=== PATIENT | female | born 1930 | race Caucasian/White ===

== ENCOUNTER → 2016-09-01 | Outpatient (CLI) | payer MEDICARE, OTHER ==
[2016-01-20 11:00] VITALS: BP 154/62
[~2016-09-01] MED LIST: ASPI-482 PO; ASPI81TA2 PO; ATOR40TA PO; CALC1TAB75 PO; FOLI400T4 PO; GLUC1CAP41 PO; LISI-334 PO; MULT-658 PO; PARO20TA55 PO; TRAM50TA PO
--- NOTE | 2016-09-01 15:05 | RAD ---
CT of the chest without contrast, 09/01/2016: History: Lung cancer Noncontrast scans were performed as requested. Comparison is made to a study from 05/26/2016. There is an irregular parenchymal lesion in the posterior aspect of the right lung base abutting the pleura. This apparently represents a treated lung malignancy. There are solid and lower density fluid type components with mild fissural extension. A portion of this process, primarily the lower density component extending into the fissure, has increased slightly in size. There are scattered subpleural blebs and parenchymal scars. No new pulmonary mass or infiltrate is seen. No free pleural fluid is evident. There is moderate calcific plaquing of the thoracic aorta. Scattered coronary artery calcifications are present. Several small mediastinal lymph nodes are seen without pathologic enlargement. A severe lower thoracic vertebral compression fracture is unchanged. There are moderate scattered spurs in the spine. IMPRESSION: 1. Portions of the right lateral basilar pleural/parenchymal opacity have increased slightly in size since 05/26/2016 as described above. 2. No other significant interval change. PQRS Compliance Statement: One or more of the following individualized dose reduction techniques were utilized for this examination: 1. Automated exposure control 2. Adjustment of the mA and/or kV according to patient size 3. Use of iterative reconstruction technique
== END | disposition home or self-care (01) ==
LOC: CT 11:26
PROVIDERS: ATTEND Radiology Radiation Oncology
DX: C34.90 Malignant neoplasm of unspecified part of unspecified bronchus or lung (principal); I25.10 Atherosclerotic heart disease of native coronary artery without angina pectoris; T14.8 Other injury of unspecified body region
CPT/HCPCS: 71250

== ENCOUNTER → 2016-12-03 | Outpatient (CLI) | payer MEDICARE ==
[2016-01-20 11:00] VITALS: BP 154/62
--- NOTE | 2016-12-03 11:55 | RAD ---
CT of the chest without contrast, 12/03/2016: History: Follow-up lung cancer Noncontrast scans were obtained as requested. Comparison is made to a study from 09/01/2016. There is a persistent irregular parenchymal opacity in the posterolateral aspect of the right lung base abutting the pleura. It demonstrates cystic and solid components. It has shown further interval increase in size. Precise measurements are difficult due to its irregular margins, however, this process measures approximately 5.5 cm in greatest AP diameter and 3.4 cm in width on the axial images. Branching components of this process are definitely thicker. This apparently represents a treated lung malignancy. No significant free pleural fluid is evident. There are scattered subpleural blebs and parenchymal scars. No new pulmonary mass or infiltrate is seen. There is extensive calcific plaquing of the thoracic aorta and its branches. Scattered coronary artery calcifications are noted. The heart is not enlarged. No mediastinal adenopathy is seen. There is an old lower thoracic vertebral compression deformity. Moderate scattered spurs are present in the spine. IMPRESSION: The right basilar pleural/parenchymal opacity has shown further slight interval increase in size since 09/01/2016. PQRS Compliance Statement: One or more of the following individualized dose reduction techniques were utilized for this examination: 1. Automated exposure control 2. Adjustment of the mA and/or kV according to patient size 3. Use of iterative reconstruction technique
== END | disposition home or self-care (01) ==
LOC: CT 13:45
PROVIDERS: ATTEND Radiology Radiation Oncology
DX: Z85.118 Personal history of other malignant neoplasm of bronchus and lung (principal)
CPT/HCPCS: 71250

== ENCOUNTER → 2017-03-09 | Outpatient (CLI) | payer MEDICARE ==
[2016-01-20 11:00] VITALS: BP 154/62
[~2017-03-09] MED LIST changes: +ASPI-630 PO; -ASPI81TA2 PO; -PARO20TA55 PO; +PARO20TA99 PO
--- NOTE | 2017-03-09 16:24 | RAD ---
CT of the chest without contrast, 03/09/2017: History: Restaging lung cancer Noncontrast scans were obtained with multiplanar reconstructions produced. Comparison is made to a study from 12/03/2016. A small amount of free fluid is now evident on the right extending into the posterior gutter. This fluid extends laterally to the level of an adjacent subpleural parenchymal mass. The soft tissue component appears to be of similar size when compared to the previous study. This apparently represents a treated lung malignancy. The pleural fluid component has thickened slightly. There are scattered parenchymal scars and subpleural blebs. No new parenchymal opacities are seen. There is no evidence of left-sided pleural fluid. There is considerable calcific plaquing of the thoracic aorta without evidence of aneurysm. Scattered coronary artery calcifications are present. Several small mediastinal lymph nodes are seen without evidence of pathologic enlargement. An old severe lower thoracic vertebral compression fracture is again noted. IMPRESSION: Persistent pleural/parenchymal process in the right lung base laterally with slight progression of the pleural fluid component. The peripheral soft tissue pulmonary component show no definite change since 12/03/2016. PQRS Compliance Statement: One or more of the following individualized dose reduction techniques were utilized for this examination: 1. Automated exposure control 2. Adjustment of the mA and/or kV according to patient size 3. Use of iterative reconstruction technique
== END | disposition home or self-care (01) ==
LOC: CT 10:21
PROVIDERS: ATTEND Radiology Radiation Oncology
DX: C34.90 Malignant neoplasm of unspecified part of unspecified bronchus or lung (principal)
CPT/HCPCS: 71250

== ENCOUNTER → 2017-06-08 | Outpatient (CLI) | payer MEDICARE ==
[2016-01-20 11:00] VITALS: BP 154/62
--- NOTE | 2017-06-08 10:18 | RAD ---
CT chest without contrast 06/08/2017 Indication: History of lung cancer. Comparison: CT chest 03/09/2017, 12/03/2016, 09/01/2016 at 12/10/2015 Technique: Multiple axial CT images of the chest were obtained without intravenous contrast. Coronal and sagittal reformats are provided. Findings: The left thyroid gland is mildly enlarged and heterogeneous, stable. There are no pathologically enlarged lymph nodes in the axilla, mediastinum or hilar regions. There is a 10 mm subcutaneous nodule in the right upper lateral chest wall, stable dating back to 12/03/2016. Heart size is within normal limits. There is no pericardial effusion. Thoracic aorta is normal in course and caliber with moderate atherosclerotic calcification. Minor coronary artery vascular calcifications are present. Tracheobronchial calcification is noted. There is a 2.9 x 1.7 cm mass in the right lower lobe with adjacent airspace consolidation suggestive of atelectasis. There is increasing atelectasis along the posterior margin which gives the mass a larger appearance. However, overall size of the subtly more hyperattenuating component of the mass is stable. Trace right pleural effusion versus pleural thickening. No pulmonary vascular congestion or pneumothorax. Left lung is clear. Visualized portions of the upper abdomen appear stable. Adrenal glands are normal in size. Vascular calcifications are identified in the renal bar[place] bilaterally. Right lateral seventh, eighth, and and ninth ribs demonstrate mild periosteal reaction with subtle lucency and step-off suggestive of healing fractures. Deformity appears slightly increased compared to the prior examination from 03/09/2017 and re-injury is a consideration. Stable appearance of vertebral plana involving T12. Impression: 1. Stable appearance of a right lower lobe mass measuring 2.9 x 1.7 cm with increasing adjacent airspace consolidation suggestive of postobstructive or inflammatory changes. No new or pathologically enlarged thoracic lymph nodes are identified. 2. There is periosteal reaction which is increased since the prior examination involving right lateral seventh, eighth and ninth ribs. Findings could represent re-injury and correlation with symptoms is recommended. PQRS Compliance Statement: One or more of the following individualized dose reduction techniques were utilized for this examination: 1. Automated exposure control 2. Adjustment of the mA and/or kV according to patient size 3. Use of iterative reconstruction technique
== END | disposition home or self-care (01) ==
LOC: CT 09:36
PROVIDERS: ATTEND Radiology Radiation Oncology
DX: C34.90 Malignant neoplasm of unspecified part of unspecified bronchus or lung (principal); I25.10 Atherosclerotic heart disease of native coronary artery without angina pectoris; R22.2 Localized swelling, mass and lump, trunk; Z85.118 Personal history of other malignant neoplasm of bronchus and lung
CPT/HCPCS: 71250

== ENCOUNTER → 2017-12-08 | Outpatient (CLI) | payer MEDICARE | END | disposition home or self-care (01) | LOC: CT 15:26 | DX: C34.91 Malignant neoplasm of unspecified part of right bronchus or lung (principal); M40.294 Other kyphosis, thoracic region; I25.10 Atherosclerotic heart disease of native coronary artery without angina pectoris; I70.0 Atherosclerosis of aorta | CPT/HCPCS: 71250 ==

== ENCOUNTER → 2018-06-09 | Outpatient (CLI) | payer MEDICARE ==
[2016-01-20 11:00] VITALS: BP 154/62
[~2018-06-09] MED LIST changes: +DENO60DI SQ; +VENTOLIN HFA18 GM INH
--- NOTE | 2018-06-09 17:37 | RAD ---
CT of the chest without contrast, 06/09/2018: HISTORY: Follow-up lung cancer after radiation Noncontrast scans were obtained and compared to a study from 12/08/2017. There is an irregular parenchymal mass in the lateral aspect of the right lower lobe with mild adjacent streaky pulmonary infiltrate. It is difficult to measure due to its shape and irregular margins, however, it measures at least 6 cm in AP dimension, 2.9 cm in craniocaudad extent and 3.1 cm in width. It appears to be of similar size when compared to the 12/08/2017 exam. The amount of right pleural fluid has increased. There is minimal linear atelectasis or scarring in the right upper and middle lobes. The left lung remains clear. No left-sided pleural fluid is evident. There is extensive calcific plaquing of the thoracic aorta and its branches several small mediastinal lymph nodes are seen without evidence of pathologic enlargement. No adrenal abnormality is detected. Moderate multilevel degenerative changes are present in the spine. There is an unchanged severe vertebral compression fracture at T12. IMPRESSION: 1. Stable right lower lobe pulmonary mass with mild adjacent pulmonary infiltrate. 2. Increasing small right pleural effusion. PQRS Compliance Statement: One or more of the following individualized dose reduction techniques were utilized for this examination: 1. Automated exposure control 2. Adjustment of the mA and/or kV according to patient size 3. Use of iterative reconstruction technique Electronically signed by: Branden Rosas MD (06/09/2018 5:33 PM) [facility]
== END | disposition home or self-care (01) ==
LOC: CT 10:03
PROVIDERS: ATTEND Radiology Radiation Oncology
DX: C34.91 Malignant neoplasm of unspecified part of right bronchus or lung (principal); R91.8 Other nonspecific abnormal finding of lung field; J90 Pleural effusion, not elsewhere classified; M48.54XD Collapsed vertebra, not elsewhere classified, thoracic region, subsequent encounter for fracture with routine healing; Z92.3 Personal history of irradiation
CPT/HCPCS: 71250

== ENCOUNTER → 2018-09-15 | Outpatient (CLI) | payer MEDICARE ==
[2016-01-20 11:00] VITALS: BP 154/62
--- NOTE | 2018-09-15 11:24 | RAD ---
PQRS Compliance Statement: One or more of the following individualized dose reduction techniques were utilized for this examination: 1. Automated exposure control 2. Adjustment of the mA and/or kV according to patient size 3. Use of iterative reconstruction technique CT CHEST WO CONTRAST Clinical Indication: F/U LUNG CA S/P TREATMENT R PLEURAL EFFUSION Comparison: CT chest without contrast June 09, 2018. TECHNIQUE: Helical CT imaging of the chest is performed without IV contrast. Findings: Severe atherosclerotic calcification of the thoracic aorta. Coronary artery disease. Cardiac size normal, no pericardial effusion. The pulmonary trunk is mildly dilated, unchanged. Stable mediastinal lymph nodes, no adenopathy. Moderate right pleural effusion, mildly larger than on prior study. The central airways are patent. The left lung remains clear. 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 Mass in the lateral right lower lobe is difficult to accurately measure but is on the order of 7 cm AP by 3.3 cm transverse by 3 cm craniocaudal. The AP measurement is different than on the prior study due to differences in slice acquisition. The mass is unchanged in size since the prior study. There are linear parenchymal opacities in the right middle lobe that may be sequela of therapy. Visualized upper abdomen unremarkable. Severe compression fracture of the T12 vertebral body is unchanged. Degree of retropulsion is unchanged. IMPRESSION: 1. Right lower lobe pulmonary mass is not significantly changed. 2. Moderate right pleural effusion, mildly larger. Electronically signed by: Ari Prater MD (09/15/2018 11:19 AM) [id number]
== END | disposition home or self-care (01) ==
LOC: CT 10:13
PROVIDERS: ATTEND Radiology Radiation Oncology
DX: C34.90 Malignant neoplasm of unspecified part of unspecified bronchus or lung (principal); J90 Pleural effusion, not elsewhere classified; R91.8 Other nonspecific abnormal finding of lung field; I70.0 Atherosclerosis of aorta; I25.10 Atherosclerotic heart disease of native coronary artery without angina pectoris
CPT/HCPCS: 71250

== ENCOUNTER → 2018-12-13 | Outpatient (CLI) | payer MEDICARE ==
[2016-01-20 11:00] VITALS: BP 154/62
--- NOTE | 2018-12-13 17:19 | RAD ---
CT of the chest without contrast, 12/13/2018: HISTORY: Follow-up lung cancer Noncontrast scans were obtained and compared to a study from 09/15/2018. There is a persistent soft tissue mass in the posterolateral aspect of the right lower lobe abutting the visceral pleura. There is mild adjacent infiltrate with air bronchograms. The mass is difficult to accurately measure, however, it does appear to have increased slightly in size since the previous study. It currently measures 3.5 cm in craniocaudad extent on the coronal images compared to 3.3 cm on the previous study. Its greatest width on the axial images is currently 3.9 cm compared to 3.6 cm on the previous study. There is a small associated right pleural effusion which appears to have decreased slightly in size. The left chest remains clear. No left-sided pleural fluid is evident. There is extensive calcific plaquing of the thoracic aorta. Scattered coronary artery calcifications are present. Small mediastinal lymph nodes appear unchanged. No definite mediastinal adenopathy is delineated. A severe T12 vertebral compression fracture appears unchanged. Again noted is mild retropulsion of the fracture vertebral body into the anterior aspect of the spinal canal at that level. There are several old rib fractures on the right. IMPRESSION: 1. The right lower lobe pulmonary mass appears to have increased slightly in size since 09/15/2018. 2. The small right pleural effusion has decreased slightly in volume. PQRS Compliance Statement: One or more of the following individualized dose reduction techniques were utilized for this examination: 1. Automated exposure control 2. Adjustment of the mA and/or kV according to patient size 3. Use of iterative reconstruction technique Electronically signed by: Branden Rosas MD (12/13/2018 4:17 PM) [facility]
== END | disposition home or self-care (01) ==
LOC: CT 10:04
PROVIDERS: ATTEND Radiology Radiation Oncology
DX: C34.31 Malignant neoplasm of lower lobe, right bronchus or lung (principal); J90 Pleural effusion, not elsewhere classified; R91.8 Other nonspecific abnormal finding of lung field; I70.0 Atherosclerosis of aorta; M84.48XD Pathological fracture, other site, subsequent encounter for fracture with routine healing; I25.10 Atherosclerotic heart disease of native coronary artery without angina pectoris
CPT/HCPCS: 71250

== ENCOUNTER 2019-03-26 16:21 | Inpatient (IN) | payer MEDICARE ==
[~2019-03-26] VITALS: Ht 167.6 cm; Wt 55.6 kg
[2019-03-26] MEDS ORDERED: ONDANSETRON PF 4 MG/2 ML VIAL. IV ONE (16:45)
[2019-03-26] MEDS ORDERED: FAMOTIDINE 20 MG/2 ML VIAL IVP ONE (16:45)
[2019-03-26] MEDS ORDERED: IV NORMAL SALINE 1000ML BAG 1,000 ML IV ONE ×2 (16:45→20:00)
[2019-03-26 17:24] LABS: BILIRUBIN,URINE NEGATIVE (NEG); CLARITY,URINE CLOUDY; COLOR,URINE YELLOW; NITRITE,URINE NEGATIVE (NEG); PH,URINE 7.5; PROTEIN,URINE NEGATIVE (NEG-TRACE); UROBILINOGEN,URINE 0.2 mg/dL (0.2 mg/dL)
[2019-03-26] MEDS: fentaNYL PF VIAL 100 MCG/2 ML VIAL IV PRN ×5 (17:29→20:00)
[2019-03-26 17:35] LABS: AMORPHOUS SEDIMENT,UR PRESENT /HPF; BACTERIA,URINE 0 /HPF (0-FEW); RBC,URINE OCC /HPF (0-2); SQUAMOUS EPITHELIAL CELL,UR FEW /LPF
[2019-03-26 18:10] LABS: BASO % 0 % (0-3); EOS % 0 % (0-3); HEMATOCRIT 41.7 % (36.0-47.0); HEMOGLOBIN 13.6 g/dL (12.0-15.5); LYMPH # 0.9 x10^3/uL (1.0-4.8); LYMPH % 7 % (24-48); MEAN CORPUSCULAR HEMOGLOBIN 27 pg (25-35); MEAN CORPUSCULAR HGB CONC 33 g/dL (31-37); MEAN CORPUSCULAR VOLUME 83 fL (79-100); MONO # 0.5 x10^3/uL (0.0-1.1); MONO % 4 % (0-9); NEUT # 11.9 x10^3/uL (1.8-7.7); NEUT % 89 % (31-73); PLATELET COUNT 346 x10^3/uL (140-400); RED BLOOD COUNT 5.02 x10^6/uL (3.50-5.40); RED CELL DISTRIBUTION WIDTH 14.7 % (11.5-14.5); WHITE BLOOD COUNT 13.3 x10^3/uL (4.0-11.0)
[2019-03-26 18:19] LABS: PROTHROMBIN TIME PATIENT 11.8 SEC (11.7-14.0)
[2019-03-26 18:44] LABS: % EOS 1 % (0-5); % LYMPHS 7 % (24-48); % MONOS 5 % (0-10); % SEGS 87 % (35-66); PLT ESTIMATE ADEQUATE (ADEQUATE)
[2019-03-26] MEDS ORDERED: PROCHLORPERAZINE 10 MG/2 ML VIAL. IV ONE (18:45)
[2019-03-26] MEDS ORDERED: METOCLOPRAMIDE HCL 10 MG/2 ML VIAL. IV ONE (18:45)
[2019-03-26 18:53] LABS: CREATININE 0.6 mg/dL (0.6-1.0); GFR 94.8; POTASSIUM 3.9 mmol/L (3.5-5.1)
[2019-03-26 18:59] LABS: ALBUMIN 3.7 g/dL (3.4-5.0); ALBUMIN/GLOBULIN RATIO 1.1 (1.0-1.7); MAGNESIUM 1.6 mg/dL (1.8-2.4); TOTAL BILIRUBIN 0.5 mg/dL (0.2-1.0); TOTAL PROTEIN 7.2 g/dL (6.4-8.2)
[2019-03-26 19:06] LABS: CREATINE KINASE 56 U/L (26-192)
[2019-03-26] MEDS ORDERED: CONTRAST GIVEN. MC PRN (19:15)
[2019-03-26] MEDS ORDERED: IOHEXOL 350 MG/ML 100 ML VIAL. IV ONE (19:15)
--- NOTE | 2019-03-26 19:58 | PHYS DOC ---
Past Medical History Past Medical History: Depression, High Cholesterol, Hypertension (ENZO RAMIREZ APRN) Past Surgical History: No Surgical History (ENZO RAMIREZ APRN) Alcohol Use: None Drug Use: None (ENZO RAMIREZ APRN) Adult General Chief Complaint Chief Complaint: ABDOMINAL PAIN HPI HPI Patient is a 88 year old female who presents to the ED today complaining of severe generalized abdominal pain worse on the epigastric region rated at 10 out of 10 that began today after having Lidia jj that she just got 10 from the store. Patient is also complaining of vomiting. Denies any diarrhea. She arrives in the ED violently vomiting. She is currently a poor historian due to the vomiting. (ENZO RAMIREZ APRN) Review of Systems Review of Systems Constitutional: Denies fever or chills [] Eyes: Denies change in visual acuity, redness, or eye pain [] HENT: Denies nasal congestion or sore throat [] Respiratory: Denies cough or shortness of breath [] Cardiovascular: No additional information not addressed in HPI [] GI: Reports abdominal pain, nausea, vomiting, denies bloody stools or diarrhea [] : Denies dysuria or hematuria [] Musculoskeletal: Denies back pain or joint pain [] Integument: Denies rash or skin lesions [] Neurologic: Denies headache, focal weakness or sensory changes [] All other systems were reviewed and found to be within normal limits, except as documented in this note. (ENZO RAMIREZ APRN) Current Medications Current Medications Current Medications Medications (Trade) Dose Ordered Sig/Erica Start Time Stop Time Status Last Admin Dose Admin Famotidine (Pepcid Vial) 20 mg 1X ONCE 03/26/19 16:45 03/26/19 16:49 DC 03/26/19 17:29 20 MG Fentanyl Citrate (Fentanyl 2ml Vial) 50 mcg PRN Q15MIN PRN 03/26/19 16:45 03/27/19 16:44 DC 03/26/19 18:39 50 MCG Info (CONTRAST GIVEN -- Rx MONITORING) 1 each PRN DAILY PRN 03/26/19 19:15 03/28/19 19:14 DC Iohexol (Omnipaque 350 Mg/ml) 75 ml 1X ONCE 03/26/19 19:15 03/26/19 19:16 DC 03/26/19 19:27 75 ML Lorazepam (Ativan Inj) 2 mg 1X ONCE 03/26/19 19:30 03/26/19 19:31 DC Metoclopramide HCl (Reglan Vial) 10 mg 1X ONCE 03/26/19 18:45 03/26/19 18:46 DC 03/26/19 18:18 10 MG Ondansetron HCl (Zofran) 4 mg 1X ONCE 03/26/19 16:45 03/26/19 16:49 DC 03/26/19 17:29 4 MG Prochlorperazine Edisylate (Compazine) 10 mg 1X ONCE 03/26/19 18:45 03/26/19 18:46 DC 03/26/19 18:12 10 MG Sodium Chloride 1,000 ml @ 1,000 mls/hr 1X ONCE 03/26/19 16:45 03/26/19 17:44 DC 03/26/19 17:30 1,000 MLS/HR (STACIA NOGUEIRA DO) Allergies Allergies Allergies Coded Allergies Type Severity Reaction Last Updated Verified No Known Drug Allergies 03/05/14 No (STACIA NOGUEIRA DO) Physical Exam Physical Exam Constitutional: Well developed, well nourished, no acute distress, non-toxic appearance. [] HENT: Normocephalic, atraumatic, bilateral external ears normal, oropharynx moist, no oral exudates, nose normal. [] Eyes: PERRLA, EOMI, conjunctiva normal, no discharge. [] Neck: Normal range of motion, no tenderness, supple, no stridor. [] Cardiovascular:Heart rate regular rhythm, no murmur [] Lungs & Thorax: Bilateral breath sounds clear to auscultation [] Abdomen: Patient is actively vomiting in the ED. Bowel sounds normal, soft, diffuse tenderness throughout the abdomen tenderness, no masses, no pulsatile masses. [] Skin: Warm, dry, no erythema, no rash. [] Back: No tenderness, no CVA tenderness. [] Extremities: No tenderness, no cyanosis, no clubbing, ROM intact, no edema. [] Neurologic: Alert and oriented X 3, normal motor function, normal sensory fun ction, no focal deficits noted. [] Psychologic: Restless, thrashing around in bed. (MIKCYUNGA,ENZO REGULATORY AFFAIRS ANALYST) Current Patient Data Vital Signs Vital Signs Date Time Temp Pulse Resp B/P (MAP) Pulse Ox O2 Delivery O2 Flow Rate FiO2 03/26/19 19:32 88 22 244/157 (186) 100 Nasal Cannula 2.0 03/26/19 16:32 98.0 98.0 (NOGUEIRASTACIA DO) Lab Values Laboratory Tests Test 03/26/19 17:16 03/26/19 18:00 03/26/19 18:35 Urine Collection Type Unknown Urine Color Yellow Urine Clarity Cloudy Urine pH 7.5 Urine Specific [place] 1.010 Urine Protein Negative mg/dL (NEG-TRACE) Urine Glucose (UA) Negative mg/dL (NEG) Urine Ketones (Stick) Trace mg/dL (NEG) Urine Blood Negative (NEG) Urine Nitrite Negative (NEG) Urine Bilirubin Negative (NEG) Urine Urobilinogen Dipstick 0.2 mg/dL (0.2 mg/dL) Urine Leukocyte Esterase Trace (NEG) Urine RBC Occ /HPF (0-2) Urine WBC 1-4 /HPF (0-4) Urine Squamous Epithelial Cells Few /LPF Urine Amorphous Sediment Present /HPF Urine Bacteria 0 /HPF (0-FEW) Urine Mucus Slight /LPF White Blood Count 13.3 x10^3/uL (4.0-11.0) H Red Blood Count 5.02 x10^6/uL (3.50-5.40) Hemoglobin 13.6 g/dL (12.0-15.5) Hematocrit 41.7 % (36.0-47.0) Mean Corpuscular Volume 83 fL (79-100) Mean Corpuscular Hemoglobin 27 pg (25-35) Mean Corpuscular Hemoglobin Concent 33 g/dL (31-37) Red Cell Distribution Width 14.7 % (11.5-14.5) H Platelet Count 346 x10^3/uL (140-400) Neutrophils (%) (Auto) 89 % (31-73) H Lymphocytes (%) (Auto) 7 % (24-48) L Monocytes (%) (Auto) 4 % (0-9) Eosinophils (%) (Auto) 0 % (0-3) Basophils (%) (Auto) 0 % (0-3) Neutrophils # (Auto) 11.9 x10^3/uL (1.8-7.7) H Lymphocytes # (Auto) 0.9 x10^3/uL (1.0-4.8) L Monocytes # (Auto) 0.5 x10^3/uL (0.0-1.1) Eosinophils # (Auto) 0.0 x10^3/uL (0.0-0.7) Basophils # (Auto) 0.0 x10^3/uL (0.0-0.2) Segmented Neutrophils % 87 % (35-66) H Lymphocytes % 7 % (24-48) L Monocytes % 5 % (0-10) Eosinophils % 1 % (0-5) Platelet Estimate Adequate (ADEQUATE) Prothrombin Time 11.8 SEC (11.7-14.0) Prothrombin Time INR 0.9 (0.8-1.1) Sodium Level 136 mmol/L (136-145) Potassium Level 3.9 mmol/L (3.5-5.1) Chloride Level 99 mmol/L (98-107) Carbon Dioxide Level 27 mmol/L (21-32) Anion Gap 10 (6-14) Blood Urea Nitrogen 7 mg/dL (7-20) Creatinine 0.6 mg/dL (0.6-1.0) Estimated GFR (Cockcroft-Gault) 94.8 BUN/Creatinine Ratio 12 (6-20) Glucose Level 149 mg/dL (70-99) H Calcium Level 9.0 mg/dL (8.5-10.1) Magnesium Level 1.6 mg/dL (1.8-2.4) L Total Bilirubin 0.5 mg/dL (0.2-1.0) Aspartate Amino Transferase (AST) 20 U/L (15-37) Alanine Aminotransferase (ALT) 19 U/L (14-59) Alkaline Phosphatase 120 U/L (46-116) H Creatine Kinase 56 U/L (26-192) Creatine Kinase MB (Mass) 1.5 ng/mL (0.0-3.6) Creatine Kinase MB Relative Index % (0-4) Troponin I Quantitative 0.023 ng/mL (0.000-0.055) LF-Iwh-R-Type Natriuretic Peptide 580 pg/mL (0-449) H Total Protein 7.2 g/dL (6.4-8.2) Albumin 3.7 g/dL (3.4-5.0) Albumin/Globulin Ratio 1.1 (1.0-1.7) Lipase 70 U/L (73-393) L Thyroid Stimulating Hormone (TSH) 0.870 uIU/mL (0.358-3.74) Laboratory Tests 03/26/19 18:00 Laboratory Tests 03/26/19 18:35 Microbiology 03/26/19 Urine Culture - Final, Complete 03/26/19 Urine Culture Result 1 (GUILLERMO) - Final, Complete (STACIA NOGUEIRA DO) EKG EKG Interpreted by Dr. Sheldon sinus rhythm HR 78 no STEMI (JAMESENZO REGULATORY AFFAIRS ANALYST) Radiology/Procedures Radiology/Procedures []PROCEDURE: CT ANGIO CHEST ABD PELVIS CTA of the chest, abdomen and pelvis without and with contrast 03/26/2019 CLINICAL HISTORY: History of lung cancer. Chest, abdominal and pelvic pain. Concern for aortic dissection. TECHNIQUE: Unenhanced, contiguous, 2 mm axial sections were obtained through the chest, abdomen and pelvis. After the intravenous administration of 75 cc of Omnipaque 350, contiguous, 0.625 mm axial sections were obtained through the chest, abdomen and pelvis. Multiplanar 3-D MIP reconstructed images were obtained. Volume rendered 3-D reconstructed images were obtained. One or more of the following individualized dose reduction techniques were utilized for this study: 1. Automated exposure control. 2. Adjustment of the mA and/or kV according to patient size. 3. Use of iterative reconstruction technique. FINDINGS: The unenhanced CT images demonstrate extensive atherosclerotic calcification of the thoracic and abdominal aorta and their branches. On the postcontrast images the thoracic aorta is tortuous but tapers normally. No intimal flap is seen to suggest evidence of an aortic dissection. No aneurysm is noted. The origins of the brachiocephalic, left common carotid and left subclavian arteries from the thoracic aortic arch are patent. The heart is mildly enlarged. There is a small to moderate-sized sliding hiatal hernia. A masslike area is seen involving the right lower lobe which is unchanged. There is a small right pleural effusion which is unchanged. No acute pulmonary infiltrate is noted. No pneumothorax is seen. Mild bullous emphysematous changes are seen involving both upper lobes. The liver parenchyma has a decreased attenuation consistent with mild fatty infiltration. The spleen, pancreas, adrenal glands and kidneys are within normal limits. The gallbladder is well-distended. A small amount of free fluid is seen surrounding the liver. Dilated air and fluid-filled small bowel loops are seen throughout the mid/lower abdomen. Wall thickening of a portion of the ileum is noted within the right lower quadrant abdomen. A transition point in the caliber of the bowel is seen within the mid ileum. These findings are consistent with a small bowel obstruction. Images through the pelvis demonstrate the urinary bladder distended with urine. Multiple diverticula are seen involving the sigmoid colon. There is a small amount of free fluid. No inflammatory changes are seen surrounding the sigmoid colon. Mild S-shaped curvature of the thoracolumbar spine is seen. Old compression fracture of the T11 vertebral body is noted. Degenerative changes are seen involving the thoracic and throughout the lumbar spine and both hips. CTA images of the abdominal aorta demonstrate atherosclerotic calcification of the abdominal aorta and its branches. The abdominal aorta tapers normally. No aneurysm or dissection is seen. The origin of the mesenteric artery and celiac trunk are within normal limits. The origin of the right inferior mesenteric artery is not well-visualized. Solitary renal arteries are seen supplying both kidneys. No area of stenosis is seen. Atherosclerotic calcification of the common iliac arteries and their branches is noted. No area stenosis or occlusion is seen. IMPRESSION: 1. There is no CT evidence of an aortic dissection. 2. Findings consistent with a small bowel obstruction as discussed above. Electronically signed by: Anyi Starks MD (03/26/2019 7:57 PM) [facility] DICTATED and SIGNED BY: ANYI STARKS MD DATE: 03/26/191956 (ENZO RAMIREZ APRN) Course & Med Decision Making Course & Med Decision Making Pertinent Labs and Imaging studies reviewed. (See chart for details) This is a 88-year-old female patient presenting to the ED today with vomiting and severe abdominal pain that began after having [employer] steak. Patient arrives in the ED actively projectile vomiting. CBC with a WBC of 13.1. CMP with no acute findings. Urine analysis is negative for infection. She was given fentanyl, Zofran, Compazine, IV fluids, still vomiting. Given Ativan, vomiting has slowed down. Spoke with Dr. Lawler who accepted patient for admission, CT pending. CT was noted for small bowel obstruction. NG tube was ordered. Spoke with Dr. Romeo who will f/u with patient. (ENZO RAMIREZ APRN) Dragon Disclaimer Dragon Disclaimer This electronic medical record was generated, in whole or in part, using a voice recognition dictation system. (ENZO RAMIREZ APRN) Departure Departure Impression: Primary Impression: Intractable vomiting Additional Impressions: Intractable abdominal pain Small bowel obstruction Disposition: ADMITTED INPATIENT Condition: STABLE Referrals: CAREN DODD MD (PCP) Attending Signature Attending Signature I have reviewed the PA/FRAME FIXER's note and plan of care. I was available for consultation as needed during the patient's visit in the emergency department. I agree with the clinical impression, plan, and disposition. (STACIA NOGUEIRA DO) Problem Qualifiers Primary Impression: Intractable vomiting Vomiting type: unspecified Nausea presence: unspecified Qualified Codes: R11.10 - Vomiting, unspecified MICKYSHRADDHAENZO APRN Mar 26, 2019 19:58 STACIA NOGUEIRA DO Mar 30, 2019 10:59
[2019-03-26] MEDS ORDERED: ONDANSETRON PF 4 MG/2 ML VIAL. IV PRN (20:00)
--- NOTE | 2019-03-26 22:00 | NUR ---
The patient, MARCELL MCCLELLAND, 88 y/o, F admitted by NELLY YEPEZ MD, was given written information regarding hospital policies, unit procedures and contact persons. Valuables were checked and questions answered. Pt's NG tube hooked up to low intermittent suction. No stomach contents currently being evacuated. Requested pt call when needing to get up so tubes would not be dislodged. Verbalized understanding.
[2019-03-26 22:06] VITALS: BP 170/82
[2019-03-27] MEDS: MORPHINE SULFATE 4 MG/ML VIAL. IV PRN ×7 (02:35→22:59)
[2019-03-27 03:08] VITALS: BP 174/84
[2019-03-27 04:43] LABS: BASO % 0 % (0-3); EOS % 0 % (0-3); HEMATOCRIT 41.1 % (36.0-47.0); HEMOGLOBIN 13.2 g/dL (12.0-15.5); LYMPH % 5 % (24-48); MEAN CORPUSCULAR HEMOGLOBIN 27 pg (25-35); MEAN CORPUSCULAR HGB CONC 32 g/dL (31-37); MEAN CORPUSCULAR VOLUME 83 fL (79-100); MONO # 1.8 x10^3/uL (0.0-1.1); MONO % 8 % (0-9); NEUT # 18.1 x10^3/uL (1.8-7.7); NEUT % 87 % (31-73); PLATELET COUNT 347 x10^3/uL (140-400); RED BLOOD COUNT 4.92 x10^6/uL (3.50-5.40); WHITE BLOOD COUNT 20.9 x10^3/uL (4.0-11.0)
[2019-03-27 05:05] LABS: ALBUMIN 3.4 g/dL (3.4-5.0); ALBUMIN/GLOBULIN RATIO 0.9 (1.0-1.7); CALCIUM 8.9 mg/dL (8.5-10.1); CREATININE 0.6 mg/dL (0.6-1.0); GFR 94.8; TOTAL BILIRUBIN 0.5 mg/dL (0.2-1.0); TOTAL PROTEIN 7.4 g/dL (6.4-8.2)
--- NOTE | 2019-03-27 06:35 | EKG ---
[facility] [address] [place] [address] Test Date: 2019-03-26 Test Time: 17:32:40 Pat Name: MARCELL PROCTORS Department: Room: Gender: F Director Of Archives: : 1930 Requested By: ENZO RAMIREZ Order Number: [id number] Reading MD: Measurements Intervals [place] Rate: 78 P: 63 NH: 172 QRS: 29 QRSD: 80 T: 66 QT: 424 QTc: 487 Interpretive Statements SINUS RHYTHM ATRIAL PREMATURE COMPLEX(ES) T ABNORMALITY IN HIGH LATERAL LEADS PROLONGED QT ABNORMAL ECG No previous ECG available for comparison
[2019-03-27 07:00] VITALS: BP 133/65
--- NOTE | 2019-03-27 09:31 | PDOC2 ---
GI CONSULT Reason For Consult: N/v, abd pain HPI: HPI: 88 y/o female admitted through ER. Feeling well until yesterday afternoon. Ate mashed potatoes, green beans, and fabiola steak for lunch. Then had a bowel movement (says normal) about 1:00 p.m. After that developed severe abd pain ("in the middle") and n/v. Imaging notes SBO w/ transition point in mid ileum. Has NG tube w/ ongoing abd pain. No flatus. Denies reflux/heartburn, dysphagia, chronic n/v or abd pain, diarrhea, constipation, hematochezia, melena, hematemesis, change in appetite, or weight loss. No previous EGD or colonoscopy. No GB, liver, pancreas, or PUD history. On ASA. Imaging noted hiatal hernia, mild fatty liver, and diverticulosis. PMH: PMH: breast cancer (chemo), lung cancer (radiation), HTN, HLD, depression, osteoporosis, compression fracture lumpectomy, lung biopsy, appendectomy, tonsillectomy, hysterectomy, hernia repair FH: Family History: Cancer (gastric, breast, ovarian) Social History: Smoke: <1 pack per day ALCOHOL: none Drugs: None ROS: GEN: Denies fevers, chills, sweats HEENT: Denies blurred vision, sore throat CV: Denies chest pain RESP: Denies shortness of air, cough GI: Per HPI : Denies hematuria, dysuria ENDO: Denies weight changes NEURO: Denies confusion, dizziness MSK: Denies weakness, joint pain/swelling SKIN: Denies jaundice, pruritus Vitals: Vitals: Vital Signs Date Time Temp Pulse Resp B/P (MAP) Pulse Ox O2 Delivery O2 Flow Rate FiO2 03/27/19 09:14 Nasal Cannula 2.0 03/27/19 07:00 97.9 95 16 133/65 (87) 96 97.9 Labs: Labs: Laboratory Tests Test 03/26/19 17:16 03/26/19 18:00 03/26/19 18:35 03/27/19 04:20 Urine Collection Type Unknown Urine Color Yellow Urine Clarity Cloudy Urine pH 7.5 Urine Specific [place] 1.010 Urine Protein Negative mg/dL (NEG-TRACE) Urine Glucose (UA) Negative mg/dL (NEG) Urine Ketones (Stick) Trace mg/dL (NEG) Urine Blood Negative (NEG) Urine Nitrite Negative (NEG) Urine Bilirubin Negative (NEG) Urine Urobilinogen Dipstick 0.2 mg/dL (0.2 mg/dL) Urine Leukocyte Esterase Trace (NEG) Urine RBC Occ /HPF (0-2) Urine WBC 1-4 /HPF (0-4) Urine Squamous Epithelial Cells Few /LPF Urine Amorphous Sediment Present /HPF Urine Bacteria 0 /HPF (0-FEW) Urine Mucus Slight /LPF White Blood Count 13.3 x10^3/uL (4.0-11.0) 20.9 x10^3/uL (4.0-11.0) Red Blood Count 5.02 x10^6/uL (3.50-5.40) 4.92 x10^6/uL (3.50-5.40) Hemoglobin 13.6 g/dL (12.0-15.5) 13.2 g/dL (12.0-15.5) Hematocrit 41.7 % (36.0-47.0) 41.1 % (36.0-47.0) Mean Corpuscular Volume 83 fL (79-100) 83 fL (79-100) Mean Corpuscular Hemoglobin 27 pg (25-35) 27 pg (25-35) Mean Corpuscular Hemoglobin Concent 33 g/dL (31-37) 32 g/dL (31-37) Red Cell Distribution Width 14.7 % (11.5-14.5) 15.0 % (11.5-14.5) Platelet Count 346 x10^3/uL (140-400) 347 x10^3/uL (140-400) Neutrophils (%) (Auto) 89 % (31-73) 87 % (31-73) Lymphocytes (%) (Auto) 7 % (24-48) 5 % (24-48) Monocytes (%) (Auto) 4 % (0-9) 8 % (0-9) Eosinophils (%) (Auto) 0 % (0-3) 0 % (0-3) Basophils (%) (Auto) 0 % (0-3) 0 % (0-3) Neutrophils # (Auto) 11.9 x10^3/uL (1.8-7.7) 18.1 x10^3/uL (1.8-7.7) Lymphocytes # (Auto) 0.9 x10^3/uL (1.0-4.8) 1.0 x10^3/uL (1.0-4.8) Monocytes # (Auto) 0.5 x10^3/uL (0.0-1.1) 1.8 x10^3/uL (0.0-1.1) Eosinophils # (Auto) 0.0 x10^3/uL (0.0-0.7) 0.0 x10^3/uL (0.0-0.7) Basophils # (Auto) 0.0 x10^3/uL (0.0-0.2) 0.0 x10^3/uL (0.0-0.2) Segmented Neutrophils % 87 % (35-66) Lymphocytes % 7 % (24-48) Monocytes % 5 % (0-10) Eosinophils % 1 % (0-5) Platelet Estimate Adequate (ADEQUATE) Prothrombin Time 11.8 SEC (11.7-14.0) Prothromb Time International Ratio 0.9 (0.8-1.1) Sodium Level 136 mmol/L (136-145) 136 mmol/L (136-145) Potassium Level 3.9 mmol/L (3.5-5.1) 4.0 mmol/L (3.5-5.1) Chloride Level 99 mmol/L (98-107) 100 mmol/L (98-107) Carbon Dioxide Level 27 mmol/L (21-32) 24 mmol/L (21-32) Anion Gap 10 (6-14) 12 (6-14) Blood Urea Nitrogen 7 mg/dL (7-20) 12 mg/dL (7-20) Creatinine 0.6 mg/dL (0.6-1.0) 0.6 mg/dL (0.6-1.0) Estimated GFR (Cockcroft-Gault) 94.8 94.8 BUN/Creatinine Ratio 12 (6-20) 20 (6-20) Glucose Level 149 mg/dL (70-99) 144 mg/dL (70-99) Calcium Level 9.0 mg/dL (8.5-10.1) 8.9 mg/dL (8.5-10.1) Magnesium Level 1.6 mg/dL (1.8-2.4) Total Bilirubin 0.5 mg/dL (0.2-1.0) 0.5 mg/dL (0.2-1.0) Aspartate Amino Transf (AST/SGOT) 20 U/L (15-37) 20 U/L (15-37) Alanine Aminotransferase (ALT/SGPT) 19 U/L (14-59) 18 U/L (14-59) Alkaline Phosphatase 120 U/L (46-116) 101 U/L (46-116) Creatine Kinase 56 U/L (26-192) Creatine Kinase MB (Mass) 1.5 ng/mL (0.0-3.6) Creatine Kinase MB Relative Index % (0-4) Troponin I Quantitative 0.023 ng/mL (0.000-0.055) XV-Gxe-[id number]-Type Natriuretic Peptide 580 pg/mL (0-449) Total Protein 7.2 g/dL (6.4-8.2) 7.4 g/dL (6.4-8.2) Albumin 3.7 g/dL (3.4-5.0) 3.4 g/dL (3.4-5.0) Albumin/Globulin Ratio 1.1 (1.0-1.7) 0.9 (1.0-1.7) Lipase 70 U/L (73-393) Thyroid Stimulating Hormone (TSH) 0.870 uIU/mL (0.358-3.74) Allergies: Coded Allergies: No Known Drug Allergies (Unverified , 03/05/14) Medications: Current Medications Medications (Trade) Dose Ordered Sig/Erica Route PRN Reason Start Time Stop Time Status Last Admin Dose Admin Fentanyl Citrate (Fentanyl 2ml Vial) 50 mcg PRN Q15MIN PRN IV PAIN GREATER THAN 3/10 03/26/19 16:45 03/27/19 16:44 03/26/19 18:39 Sodium Chloride 1,000 ml @ 1,000 mls/hr 1X ONCE IV 03/26/19 16:45 03/26/19 17:44 DC 03/26/19 17:30 Famotidine (Pepcid Vial) 20 mg 1X ONCE IVP 03/26/19 16:45 03/26/19 16:49 DC 03/26/19 17:29 Ondansetron HCl (Zofran) 4 mg 1X ONCE IV 03/26/19 16:45 03/26/19 16:49 DC 03/26/19 17:29 Prochlorperazine Edisylate (Compazine) 10 mg 1X ONCE IV 03/26/19 18:45 03/26/19 18:46 DC 03/26/19 18:12 Metoclopramide HCl (Reglan Vial) 10 mg 1X ONCE IV 03/26/19 18:45 03/26/19 18:46 DC 03/26/19 18:18 Iohexol (Omnipaque 350 Mg/ml) 75 ml 1X ONCE IV 03/26/19 19:15 03/26/19 19:16 DC 03/26/19 19:27 Morphine Sulfate (Morphine Sulfate) 4 mg PRN Q2HR PRN IV PAIN 03/26/19 20:00 03/27/19 19:59 03/27/19 09:14 Sodium Chloride 1,000 ml @ 75 mls/hr 1X ONCE IV 03/26/19 20:00 03/27/19 09:19 DC 03/26/19 22:39 Imaging: Imaging: C/A/P CTA 03/26 IMPRESSION: 1. There is no CT evidence of an aortic dissection. 2. Findings consistent with a small bowel obstruction as discussed above. PE: GEN: NAD HEENT: NG w/ thin brown material LUNGS: clear, NC HEART: RRR ABD: quiet, some firmness, uncomfortable to light touch EXTREMITY: No edema SKIN: No rashes, no jaundice NEURO/PSYCH: A & O �3 A/P: A/P: SBO Leukocytosis - worse CRC screen - none Diverticulosis H/o breast and lung cancer - says saw Dr. Calle last week HTN -- Can't see she had imaging after NG placement, will check x-ray. Add acid-shellac polisher. Surgery to see. BETTY JORGE Mar 27, 2019 09:31
--- NOTE | 2019-03-27 09:40 | NUR ---
SW following pt for dc planning. Chart reviewed and discussed with RN. Pt lives at home alone. SW requested for PT/OT order. Will continue to follow.
--- NOTE | 2019-03-27 10:19 | PDOC1 ---
History and Physical Date of Admission Date of Admission DATE: 03/27/19 TIME: 10:18 Source Source: Chart review, Patient History of Present Illness History of Present Illness 88 y/o female admitted four acute abd pain, nausea and vomiting, acute change yesterday afternoon, had felt well in the AM Ate mashed potatoes, green beans, and fabiola steak for lunch. Then had a bowel movement (says normal) about 1:00 p.m. severe 10/10 abd pain to ER, better this AM, NPO with NG tube no flatus, no sounds, CT showed acute SBO mid ileum. pain now 5/10 Past Medical History Past Medical History breast cancer (chemo), lung cancer (radiation), HTN, HLD, depression, osteoporosis, compression fracture lumpectomy, lung biopsy, appendectomy, tonsillectomy, hysterectomy, hernia repair Family History Family History: Cancer Family History: Parent, Grandparents Social History Smoke: <1 pack per day ALCOHOL: none Drugs: None Current Problem List Problem List Problems Medical Problems: (1) Intractable abdominal pain Status: Acute (2) Intractable vomiting Status: Acute (3) Small bowel obstruction Status: Acute Current Medications Current Medications Current Medications Fentanyl Citrate (Fentanyl 2ml Vial) 50 mcg PRN Q15MIN PRN IV PAIN GREATER THAN 3/10 Last administered on 03/26/19at 18:39; Start 03/26/19 at 16:45; Stop 03/27/19 at 16:44 Sodium Chloride 1,000 ml @ 1,000 mls/hr 1X ONCE IV Last administered on 03/26/19at 17:30; Start 03/26/19 at 16:45; Stop 03/26/19 at 17:44; Status DC Famotidine (Pepcid Vial) 20 mg 1X ONCE IVP Last administered on 03/26/19at 17:29; Start 03/26/19 at 16:45; Stop 03/26/19 at 16:49; Status DC Ondansetron HCl (Zofran) 4 mg 1X ONCE IV Last administered on 03/26/19at 17:29; Start 03/26/19 at 16:45; Stop 03/26/19 at 16:49; Status DC Prochlorperazine Edisylate (Compazine) 10 mg 1X ONCE IV Last administered on 03/26/19at 18:12; Start 03/26/19 at 18:45; Stop 03/26/19 at 18:46; Status DC Metoclopramide HCl (Reglan Vial) 10 mg 1X ONCE IV Last administered on 03/26/19at 18:18; Start 03/26/19 at 18:45; Stop 03/26/19 at 18:46; Status DC Lorazepam (Ativan Inj) 2 mg 1X ONCE IM ; Start 03/26/19 at 19:30; Stop 03/26/19 at 19:31; Status DC Iohexol (Omnipaque 350 Mg/ml) 75 ml 1X ONCE IV Last administered on 03/26/19at 19:27; Start 03/26/19 at 19:15; Stop 03/26/19 at 19:16; Status DC Info (CONTRAST GIVEN -- Rx MONITORING) 1 each PRN DAILY PRN MC SEE COMMENTS; Start 03/26/19 at 19:15; Stop 03/28/19 at 19:14 Ondansetron HCl (Zofran) 4 mg PRN Q8HRS PRN IV NAUSEA/VOMITING; Start 03/26/19 at 20:00; Stop 03/27/19 at 19:59 Morphine Sulfate (Morphine Sulfate) 4 mg PRN Q2HR PRN IV PAIN Last administered on 03/27/19at 09:14; Start 03/26/19 at 20:00; Stop 03/27/19 at 19:59 Sodium Chloride 1,000 ml @ 75 mls/hr 1X ONCE IV Last administered on 03/26/19at 22:39; Start 03/26/19 at 20:00; Stop 03/27/19 at 09:19; Status DC Lorazepam (Ativan Inj) 1 mg PRN Q4HRS PRN IV ANXIETY / AGITATION; Start 03/26/19 at 20:00 Pantoprazole Sodium (PROTONIX VIAL for IV PUSH) 40 mg DAILYAC IVP ; Start 03/27/19 at 10:30 Active Scripts Active Reported Prolia (Denosumab) 60 Mg/1 Ml Disp.syrin 60 Mg SQ Q 6 MONTHS Aspir 81 (Aspirin) 81 Mg Tablet. 81 Mg PO DAILY Glucosamine & Chondroitin Cap (Glucosa Ca 2KCL/Chondroitin Ca) 1 Each Capsule 1 Each PO BID Calcium 600 + Vit D 200 Tablet (Calcium Carbonate/Vitamin D3) 1 Each Tablet 1 Each PO BID Centrum Silver Tablet (Multivits-Min/Fa/Lycopene/Lut) 1 Each Tablet 1 Each PO DAILY Tramadol Hcl 50 Mg Tablet 50 Mg PO Q6H PRN Lipitor (Atorvastatin Calcium) 40 Mg Tablet 40 Mg PO HS Lisinopril 20 Mg Tablet 20 Mg PO HS Paxil (Paroxetine Hcl) 20 Mg Tablet 20 Mg PO DAILY Allergies Allergies: Coded Allergies: No Known Drug Allergies (Unverified , 03/05/14) ROS General: No: Chills, Night Sweats, Fatigue, Malaise, Appetite, Other PSYCHOLOGICAL ROS: No: Anxiety, Behavioral Disorder, Concentration difficultie, Decreased libido, Depression, Disorientation, Hallucinations, Hostility, Irritablity, Memory difficulties, Mood Swings, Obsessive thoughts, Physical abuse, Sexual abuse, Sleep disturbances, Suicidal ideation, Other Eyes: No Blurry vision, No Decreased vision, No Double vision, No Dry eyes, No Excessive tearing, No Eye Pain, No Itchy Eyes, No Loss of vision, No Photophobia, No Scotomata, No Uses contacts, No Uses glasses, No Other HEENT: No: Heacaches, Visual Changes, Hearing change, Nasal congestion, Nasal discharge, Oral lesions, Sinus pain, Sore Throat, Epistaxis, Sneezing, Snoring, Tinnitus, Vertigo, Vocal changes, Other Hematological and Lymphatic: No: Bleeding Problems, Blood Clots, Blood Transfusions, Brusing, Night Sweats, Pallor, Swollen Lymph Nodes, Other ENDOCRINE: No: Breast Changes, Galactorrhea, Hair Pattern Changes, Hot Flashes, Malaise/lethargy, Mood Swings, Palpitations, Polydipsia/polyuria, Skin Changes, Temperature Intolerance, Unexpected Weight Changes, Other Breast: No New/Changing Breast Lumps, No Nipple changes, No Nipple discharge, No Other Respiratory: No: Cough, Hemoptysis, Orthopnea, Pleuritic Pain, Shortness of breath, SOB with excertion, Sputum Changes, Stridor, Tachypnea, Wheezing, Other Cardiovascular: No Chest Pain, No Palpitations, No Orthopnea, No Paroxysmal Noc. Dyspnea, No Edema, No Lt Headedness, No Other Gastrointestinal: No Nausea, No Vomiting, No Abdominal Pain, No Diarrhea, No Constipation, No Melena, No Hematochezia, No Other Genitourinary: No Dysuria, No Frequency, No Incontinence, No Hematuria, No Retention, No Discharge, No Urgency, No Pain, No Flank Pain, No Other, No , No , No , No , No , No , No Musculoskeletal: Yes Joint Stiffness; No Gait Disturbance, No Joint Pain, No Joint Swelling, No Muscle Pain, No Muscular Weakness, No Pain In:, No Swelling In:, No Other Neurological: No Behavorial Changes, No Bowel/Bladder ControlChng, No Confusion, No Dizziness, No Gait Disturbance, No Headaches, No Impaired Coord/balance, No Memory Loss, No Numbness/Tingling, No Seizures, No Speech Problems, No Tremors, No Visual Changes, No Weakness, No Other Skin: Yes Dry Skin; No Eczema, No Hair Changes, No Lumps, No Mole Changes, No Mottling, No Nail Changes, No Pruritus, No Rash, No Skin Lesion Changes, No Other, No Acne Physical Exam General: Alert, Oriented X3, Cooperative, mild distress, moderate distress HEENT: PERRLA, EOMI Lungs: Other (moderate volume, ) Heart: S1S2 Abdomen: Other (almost no sounds, firm, tender, guarding, little output from NG) Rectal Exam: not examined, deferred Extremities: No clubbing, No cyanosis Skin: No rashes, No significant lesion Neuro: Normal speech, Normal tone, Sensation intact Psych/Mental Status: Mental status NL, Mood NL Vitals Vitals Vital Signs Date Time Temp Pulse Resp B/P (MAP) Pulse Ox O2 Delivery O2 Flow Rate FiO2 03/27/19 09:14 Nasal Cannula 2.0 03/27/19 07:00 97.9 95 16 133/65 (87) 96 97.9 Labs Labs Laboratory Tests Test 03/26/19 17:16 03/26/19 18:00 03/26/19 18:35 03/27/19 04:20 Urine Collection Type Unknown Urine Color Yellow Urine Clarity Cloudy Urine pH 7.5 Urine Specific [place] 1.010 Urine Protein Negative mg/dL (NEG-TRACE) Urine Glucose (UA) Negative mg/dL (NEG) Urine Ketones (Stick) Trace mg/dL (NEG) Urine Blood Negative (NEG) Urine Nitrite Negative (NEG) Urine Bilirubin Negative (NEG) Urine Urobilinogen Dipstick 0.2 mg/dL (0.2 mg/dL) Urine Leukocyte Esterase Trace (NEG) Urine RBC Occ /HPF (0-2) Urine WBC 1-4 /HPF (0-4) Urine Squamous Epithelial Cells Few /LPF Urine Amorphous Sediment Present /HPF Urine Bacteria 0 /HPF (0-FEW) Urine Mucus Slight /LPF White Blood Count 13.3 x10^3/uL (4.0-11.0) 20.9 x10^3/uL (4.0-11.0) Red Blood Count 5.02 x10^6/uL (3.50-5.40) 4.92 x10^6/uL (3.50-5.40) Hemoglobin 13.6 g/dL (12.0-15.5) 13.2 g/dL (12.0-15.5) Hematocrit 41.7 % (36.0-47.0) 41.1 % (36.0-47.0) Mean Corpuscular Volume 83 fL (79-100) 83 fL (79-100) Mean Corpuscular Hemoglobin 27 pg (25-35) 27 pg (25-35) Mean Corpuscular Hemoglobin Concent 33 g/dL (31-37) 32 g/dL (31-37) Red Cell Distribution Width 14.7 % (11.5-14.5) 15.0 % (11.5-14.5) Platelet Count 346 x10^3/uL (140-400) 347 x10^3/uL (140-400) Neutrophils (%) (Auto) 89 % (31-73) 87 % (31-73) Lymphocytes (%) (Auto) 7 % (24-48) 5 % (24-48) Monocytes (%) (Auto) 4 % (0-9) 8 % (0-9) Eosinophils (%) (Auto) 0 % (0-3) 0 % (0-3) Basophils (%) (Auto) 0 % (0-3) 0 % (0-3) Neutrophils # (Auto) 11.9 x10^3/uL (1.8-7.7) 18.1 x10^3/uL (1.8-7.7) Lymphocytes # (Auto) 0.9 x10^3/uL (1.0-4.8) 1.0 x10^3/uL (1.0-4.8) Monocytes # (Auto) 0.5 x10^3/uL (0.0-1.1) 1.8 x10^3/uL (0.0-1.1) Eosinophils # (Auto) 0.0 x10^3/uL (0.0-0.7) 0.0 x10^3/uL (0.0-0.7) Basophils # (Auto) 0.0 x10^3/uL (0.0-0.2) 0.0 x10^3/uL (0.0-0.2) Segmented Neutrophils % 87 % (35-66) Lymphocytes % 7 % (24-48) Monocytes % 5 % (0-10) Eosinophils % 1 % (0-5) Platelet Estimate Adequate (ADEQUATE) Prothrombin Time 11.8 SEC (11.7-14.0) Prothromb Time International Ratio 0.9 (0.8-1.1) Sodium Level 136 mmol/L (136-145) 136 mmol/L (136-145) Potassium Level 3.9 mmol/L (3.5-5.1) 4.0 mmol/L (3.5-5.1) Chloride Level 99 mmol/L (98-107) 100 mmol/L (98-107) Carbon Dioxide Level 27 mmol/L (21-32) 24 mmol/L (21-32) Anion Gap 10 (6-14) 12 (6-14) Blood Urea Nitrogen 7 mg/dL (7-20) 12 mg/dL (7-20) Creatinine 0.6 mg/dL (0.6-1.0) 0.6 mg/dL (0.6-1.0) Estimated GFR (Cockcroft-Gault) 94.8 94.8 BUN/Creatinine Ratio 12 (6-20) 20 (6-20) Glucose Level 149 mg/dL (70-99) 144 mg/dL (70-99) Calcium Level 9.0 mg/dL (8.5-10.1) 8.9 mg/dL (8.5-10.1) Magnesium Level 1.6 mg/dL (1.8-2.4) Total Bilirubin 0.5 mg/dL (0.2-1.0) 0.5 mg/dL (0.2-1.0) Aspartate Amino Transf (AST/SGOT) 20 U/L (15-37) 20 U/L (15-37) Alanine Aminotransferase (ALT/SGPT) 19 U/L (14-59) 18 U/L (14-59) Alkaline Phosphatase 120 U/L (46-116) 101 U/L (46-116) Creatine Kinase 56 U/L (26-192) Creatine Kinase MB (Mass) 1.5 ng/mL (0.0-3.6) Creatine Kinase MB Relative Index % (0-4) Troponin I Quantitative 0.023 ng/mL (0.000-0.055) SB-Byx-H-Type Natriuretic Peptide 580 pg/mL (0-449) Total Protein 7.2 g/dL (6.4-8.2) 7.4 g/dL (6.4-8.2) Albumin 3.7 g/dL (3.4-5.0) 3.4 g/dL (3.4-5.0) Albumin/Globulin Ratio 1.1 (1.0-1.7) 0.9 (1.0-1.7) Lipase 70 U/L (73-393) Thyroid Stimulating Hormone (TSH) 0.870 uIU/mL (0.358-3.74) Laboratory Tests Test 03/26/19 17:16 03/26/19 18:00 03/26/19 18:35 03/27/19 04:20 Urine Collection Type Unknown Urine Color Yellow Urine Clarity Cloudy Urine pH 7.5 Urine Specific [place] 1.010 Urine Protein Negative mg/dL (NEG-TRACE) Urine Glucose (UA) Negative mg/dL (NEG) Urine Ketones (Stick) Trace mg/dL (NEG) Urine Blood Negative (NEG) Urine Nitrite Negative (NEG) Urine Bilirubin Negative (NEG) Urine Urobilinogen Dipstick 0.2 mg/dL (0.2 mg/dL) Urine Leukocyte Esterase Trace (NEG) Urine RBC Occ /HPF (0-2) Urine WBC 1-4 /HPF (0-4) Urine Squamous Epithelial Cells Few /LPF Urine Amorphous Sediment Present /HPF Urine Bacteria 0 /HPF (0-FEW) Urine Mucus Slight /LPF White Blood Count 13.3 x10^3/uL (4.0-11.0) 20.9 x10^3/uL (4.0-11.0) Red Blood Count 5.02 x10^6/uL (3.50-5.40) 4.92 x10^6/uL (3.50-5.40) Hemoglobin 13.6 g/dL (12.0-15.5) 13.2 g/dL (12.0-15.5) Hematocrit 41.7 % (36.0-47.0) 41.1 % (36.0-47.0) Mean Corpuscular Volume 83 fL (79-100) 83 fL (79-100) Mean Corpuscular Hemoglobin 27 pg (25-35) 27 pg (25-35) Mean Corpuscular Hemoglobin Concent 33 g/dL (31-37) 32 g/dL (31-37) Red Cell Distribution Width 14.7 % (11.5-14.5) 15.0 % (11.5-14.5) Platelet Count 346 x10^3/uL (140-400) 347 x10^3/uL (140-400) Neutrophils (%) (Auto) 89 % (31-73) 87 % (31-73) Lymphocytes (%) (Auto) 7 % (24-48) 5 % (24-48) Monocytes (%) (Auto) 4 % (0-9) 8 % (0-9) Eosinophils (%) (Auto) 0 % (0-3) 0 % (0-3) Basophils (%) (Auto) 0 % (0-3) 0 % (0-3) Neutrophils # (Auto) 11.9 x10^3/uL (1.8-7.7) 18.1 x10^3/uL (1.8-7.7) Lymphocytes # (Auto) 0.9 x10^3/uL (1.0-4.8) 1.0 x10^3/uL (1.0-4.8) Monocytes # (Auto) 0.5 x10^3/uL (0.0-1.1) 1.8 x10^3/uL (0.0-1.1) Eosinophils # (Auto) 0.0 x10^3/uL (0.0-0.7) 0.0 x10^3/uL (0.0-0.7) Basophils # (Auto) 0.0 x10^3/uL (0.0-0.2) 0.0 x10^3/uL (0.0-0.2) Segmented Neutrophils % 87 % (35-66) Lymphocytes % 7 % (24-48) Monocytes % 5 % (0-10) Eosinophils % 1 % (0-5) Platelet Estimate Adequate (ADEQUATE) Prothrombin Time 11.8 SEC (11.7-14.0) Prothromb Time International Ratio 0.9 (0.8-1.1) Sodium Level 136 mmol/L (136-145) 136 mmol/L (136-145) Potassium Level 3.9 mmol/L (3.5-5.1) 4.0 mmol/L (3.5-5.1) Chloride Level 99 mmol/L (98-107) 100 mmol/L (98-107) Carbon Dioxide Level 27 mmol/L (21-32) 24 mmol/L (21-32) Anion Gap 10 (6-14) 12 (6-14) Blood Urea Nitrogen 7 mg/dL (7-20) 12 mg/dL (7-20) Creatinine 0.6 mg/dL (0.6-1.0) 0.6 mg/dL (0.6-1.0) Estimated GFR (Cockcroft-Gault) 94.8 94.8 BUN/Creatinine Ratio 12 (6-20) 20 (6-20) Glucose Level 149 mg/dL (70-99) 144 mg/dL (70-99) Calcium Level 9.0 mg/dL (8.5-10.1) 8.9 mg/dL (8.5-10.1) Magnesium Level 1.6 mg/dL (1.8-2.4) Total Bilirubin 0.5 mg/dL (0.2-1.0) 0.5 mg/dL (0.2-1.0) Aspartate Amino Transf (AST/SGOT) 20 U/L (15-37) 20 U/L (15-37) Alanine Aminotransferase (ALT/SGPT) 19 U/L (14-59) 18 U/L (14-59) Alkaline Phosphatase 120 U/L (46-116) 101 U/L (46-116) Creatine Kinase 56 U/L (26-192) Creatine Kinase MB (Mass) 1.5 ng/mL (0.0-3.6) Creatine Kinase MB Relative Index % (0-4) Troponin I Quantitative 0.023 ng/mL (0.000-0.055) LQ-Vtp-X-Type Natriuretic Peptide 580 pg/mL (0-449) Total Protein 7.2 g/dL (6.4-8.2) 7.4 g/dL (6.4-8.2) Albumin 3.7 g/dL (3.4-5.0) 3.4 g/dL (3.4-5.0) Albumin/Globulin Ratio 1.1 (1.0-1.7) 0.9 (1.0-1.7) Lipase 70 U/L (73-393) Thyroid Stimulating Hormone (TSH) 0.870 uIU/mL (0.358-3.74) VTE Prophylaxis Ordered VTE Prophylaxis Devices: Yes VTE Pharmacological Prophylaxi: No Assessment/Plan Assessment/Plan acute abd pain small bowel obstruction lung cancer, stable tobacco use disorder RITU JIMENEZ MD Mar 27, 2019 10:19
[2019-03-27] MEDS ORDERED: traMADol 50 MG TABLET PO PRN (10:30)
[2019-03-27] MEDS ORDERED: NICOTINE 14MG PATCH. TD PRN (10:45)
[2019-03-27 11:00] VITALS: BP 133/58
[2019-03-27] MEDS: PANTOPRAZOLE IV PUSH 40 MG VIAL. IVP SCH (11:33)
[2019-03-27] MEDS: AMINO AC 3%/ELECTROLYTE/GLYCER 1,000 ML IV SCH ×2 (11:33→23:00)
[2019-03-27] MEDS: SALIVA STIMULANT AGENT 44ML SPRAY BOTTLE. PO PRN ×4 (11:34→23:00)
[2019-03-27] MEDS: PARoxetine 20 MG TABLET PO SCH (12:23)
[2019-03-27 15:00] VITALS: BP 123/56
[2019-03-27 19:00] VITALS: BP 111/51
[2019-03-27 23:00] VITALS: BP 122/62
[2019-03-28] MEDS: MORPHINE SULFATE 4 MG/ML VIAL. IV PRN ×8 (02:19→21:44)
[2019-03-28] MEDS: SALIVA STIMULANT AGENT 44ML SPRAY BOTTLE. PO PRN ×5 (02:19→21:44)
[2019-03-28 03:00] VITALS: BP 137/49
[2019-03-28] MEDS: PANTOPRAZOLE IV PUSH 40 MG VIAL. IVP SCH (05:27)
[2019-03-28 07:00] VITALS: BP 137/49
--- NOTE | 2019-03-28 08:09 | RAD ---
EXAM: Frontal view of the chest, AP views of the abdomen in upright and supine positions. CLINICAL INDICATION: Mild bowel obstruction, NG tube placement, abdominal pain COMPARISON: CT 03/26/2019. FINDINGS and IMPRESSION: NG tube tip projects over the proximal stomach however the proximal sidehole is seen projecting over the distal esophagus. This should be advanced approximately 9 cm. The heart is not enlarged. Atherosclerotic calcifications of the tortuous aorta are seen. Small right pleural effusion with right lung base airspace opacities corresponding to known right lung mass. Small right pleural effusion. No definite pneumothorax. Multiple dilated loops of small bowel are seen consistent with small bowel obstruction better profiled on prior CT. Mild colonic stool content. No abnormal soft tissue mass effect. No free intraperitoneal gas. Electronically signed by: Bakari Cason MD (03/28/2019 8:06 AM) [facility]
[2019-03-28] MEDS: PARoxetine 20 MG TABLET PO SCH (08:41)
--- NOTE | 2019-03-28 09:38 | RAD ---
Single view of the abdomen 03/28/2019 INDICATION: Advancement of enteric tube COMPARISON STUDY: Abdominal series, yesterday Discussion: There has been some advancement of the enteric tube in the interim with side-port now approximately the level of the GE junction. Advancement 5-10 additional centimeters may be helpful. Right basilar consolidation possibly representing effusion or scarring is similar. Dilated loops of central small bowel are seen in a pattern concerning for small bowel obstruction or ileus. No gross pneumoperitoneum is identified. No acute osseous changes are noted in the interim. IMPRESSION: 1. Enteric tube has been advanced, side port now at the GE junction. Consider advancement 5-10 additional centimeters. 2. Dilated loops of small bowel central abdomen possibly relating to bowel obstruction or ileus. Radiographic follow-up recommended 3. Right pleural effusion and atelectasis/scarring is similar. Electronically signed by: Baldo Santoyo MD (03/28/2019 9:35 AM) [id number]
--- NOTE | 2019-03-28 10:38 | PDOC2 ---
CONSULT Date of Consult Date of Consult DATE: 03/27/19 TIME: 15:30 Reason for Consult Reason for Consult: small bowel obstruction Referring Physician Referring Physician: IPC Identification/Chief Complaint Chief Complaint abdominal pain, nausea, vomiting Source Source: Chart review, Patient History of Present Illness Reason for Visit: Ms Barakat is an 88 yo lady with hx of previous abdominal surgeries who presented with abdominal pain and vomiting. CT suggests SBO Past Medical History Cardiovascular: HTN Pulmonary: Other (smoker) Hepatobiliary: Other (HLD) Psych: Depression Past Surgical History Past Surgical History: Appendectomy, Hernia Repair, Tonsillectomy, Hysterec regi, Other (breast surgery) Family History Family History: Cancer Social History Social History: Parent, Grandparents <1 pack per day ALCOHOL: none Drugs: None Current Problem List Problem List Problems Medical Problems: (1) Intractable abdominal pain Status: Acute (2) Intractable vomiting Status: Acute (3) Small bowel obstruction Status: Acute Current Medications Current Medications Current Medications Fentanyl Citrate (Fentanyl 2ml Vial) 50 mcg PRN Q15MIN PRN IV PAIN GREATER THAN 3/10 Last administered on 03/26/19at 18:39; Start 03/26/19 at 16:45; Stop 03/27/19 at 16:44; Status DC Sodium Chloride 1,000 ml @ 1,000 mls/hr 1X ONCE IV Last administered on 03/26/19at 17:30; Start 03/26/19 at 16:45; Stop 03/26/19 at 17:44; Status DC Famotidine (Pepcid Vial) 20 mg 1X ONCE IVP Last administered on 03/26/19 17:29; Start 03/26/19 at 16:45; Stop 03/26/19 at 16:49; Status DC Ondansetron HCl (Zofran) 4 mg 1X ONCE IV Last administered on 03/26/19 17:29; Start 03/26/19 at 16:45; Stop 03/26/19 at 16:49; Status DC Prochlorperazine Edisylate (Compazine) 10 mg 1X ONCE IV Last administered on 03/26/19 18:12; Start 03/26/19 at 18:45; Stop 03/26/19 at 18:46; Status DC Metoclopramide HCl (Reglan Vial) 10 mg 1X ONCE IV Last administered on 8/11/19at 18:18; Start 03/26/19 at 18:45; Stop 03/26/19 at 18:46; Status DC Lorazepam (Ativan Inj) 2 mg 1X ONCE IM ; Start 03/26/19 at 19:30; Stop 03/26/19 at 19:31; Status DC Iohexol (Omnipaque 350 Mg/ml) 75 ml 1X ONCE IV Last administered on 03/26/19at 19:27; Start 03/26/19 at 19:15; Stop 03/26/19 at 19:16; Status DC Info (CONTRAST GIVEN -- Rx MONITORING) 1 each PRN DAILY PRN MC SEE COMMENTS; Start 03/26/19 at 19:15; Stop 03/28/19 at 19:14 Ondansetron HCl (Zofran) 4 mg PRN Q8HRS PRN IV NAUSEA/VOMITING Last administered on 03/27/19at 14:03; Start 03/26/19 at 20:00; Stop 03/27/19 at 19:59; Status DC Morphine Sulfate (Morphine Sulfate) 4 mg PRN Q2HR PRN IV PAIN Last administered on 03/27/19at 19:29; Start 03/26/19 at 20:00; Stop 03/27/19 at 19:59; Status DC Sodium Chloride 1,000 ml @ 75 mls/hr 1X ONCE IV Last administered on 03/26/19at 22:39; Start 03/26/19 at 20:00; Stop 03/27/19 at 09:19; Status DC Lorazepam (Ativan Inj) 1 mg PRN Q4HRS PRN IV ANXIETY / AGITATION; Start 03/26/19 at 20:00 Pantoprazole Sodium (PROTONIX VIAL for IV PUSH) 40 mg DAILYAC IVP Last administered on 03/28/19at 05:27; Start 03/27/19 at 10:30 Paroxetine HCl (Paxil) 20 mg DAILY PO ; Start 03/27/19 at 11:00 Tramadol HCl (Ultram) 50 mg PRN Q6HRS PRN PO PAIN; Start 03/27/19 at 10:30 Amino Acids/ Glycerin/ Electrolytes 1,000 ml @ 80 mls/hr [id number] IV Last administered on 03/27/19at 23:00; Start 03/27/19 at 11:00 Saliva Substitute (Biotene Moisturizing Mouth) 2 spray PRN Q15MIN PRN PO DRY MOUTH Last administered on 03/28/19at 08:33; Start 03/27/19 at 10:30 Nicotine (Nicoderm Cq 14mg) 1 patch PRN DAILY PRN TD SMOKING CESSATION; Start 03/27/19 at 10:45 Morphine Sulfate (Morphine Sulfate) 4 mg PRN Q2HR PRN IV PAIN Last administered on 03/28/19at 08:33; Start 03/27/19 at 23:00 Active Scripts Active Reported Prolia (Denosumab) 60 Mg/1 Ml Disp.syrin 60 Mg SQ Q 6 MONTHS Aspir 81 (Aspirin) 81 Mg Tablet.dr 81 Mg PO DAILY Glucosamine & Chondroitin Cap (Glucosa Ca 2KCL/Chondroitin Ca) 1 Each Capsule 1 Each PO BID Calcium 600 + Vit D 200 Tablet (Calcium Carbonate/Vitamin D3) 1 Each Tablet 1 Each PO BID Centrum Silver Tablet (Multivits-Min/Fa/Lycopene/Lut) 1 Each Tablet 1 Each PO DAILY Tramadol Hcl 50 Mg Tablet 50 Mg PO Q6H PRN Lipitor (Atorvastatin Calcium) 40 Mg Tablet 40 Mg PO HS Lisinopril 20 Mg Tablet 20 Mg PO HS Paxil (Paroxetine Hcl) 20 Mg Tablet 20 Mg PO DAILY Allergies Allergies: Coded Allergies: No Known Drug Allergies (Unverified , 03/05/14) ROS PSYCHOLOGICAL ROS: YES: Depression Gastrointestinal: Yes Nausea, Yes Vomiting, Yes Abdominal Pain Physical Exam General: Alert, Cooperative, No acute distress HEENT: Atraumatic Lungs: Normal air movement Heart: Regular rate Abdomen: Soft, Other (midly distended, slightly TTP, old surgical scars) Vitals VITALS Vital Signs Date Time Temp Pulse Resp B/P (MAP) Pulse Ox O2 Delivery O2 Flow Rate FiO2 03/28/19 08:33 Nasal Cannula 2.0 03/28/19 07:00 98.4 103 18 137/49 (78) 96 98.4 Labs Labs Laboratory Tests Test 03/26/19 17:16 03/26/19 18:00 03/26/19 18:35 03/27/19 04:20 Urine Collection Type Unknown Urine Color Yellow Urine Clarity Cloudy Urine pH 7.5 Urine Specific [place] 1.010 Urine Protein Negative mg/dL (NEG-TRACE) Urine Glucose (UA) Negative mg/dL (NEG) Urine Ketones (Stick) Trace mg/dL (NEG) Urine Blood Negative (NEG) Urine Nitrite Negative (NEG) Urine Bilirubin Negative (NEG) Urine Urobilinogen Dipstick 0.2 mg/dL (0.2 mg/dL) Urine Leukocyte Esterase Trace (NEG) Urine RBC Occ /HPF (0-2) Urine WBC 1-4 /HPF (0-4) Urine Squamous Epithelial Cells Few /LPF Urine Amorphous Sediment Present /HPF Urine Bacteria 0 /HPF (0-FEW) Urine Mucus Slight /LPF White Blood Count 13.3 x10^3/uL (4.0-11.0) 20.9 x10^3/uL (4.0-11.0) Red Blood Count 5.02 x10^6/uL (3.50-5.40) 4.92 x10^6/uL (3.50-5.40) Hemoglobin 13.6 g/dL (12.0-15.5) 13.2 g/dL (12.0-15.5) Hematocrit 41.7 % (36.0-47.0) 41.1 % (36.0-47.0) Mean Corpuscular Volume 83 fL (79-100) 83 fL (79-100) Mean Corpuscular Hemoglobin 27 pg (25-35) 27 pg (25-35) Mean Corpuscular Hemoglobin Concent 33 g/dL (31-37) 32 g/dL (31-37) Red Cell Distribution Width 14.7 % (11.5-14.5) 15.0 % (11.5-14.5) Platelet Count 346 x10^3/uL (140-400) 347 x10^3/uL (140-400) Neutrophils (%) (Auto) 89 % (31-73) 87 % (31-73) Lymphocytes (%) (Auto) 7 % (24-48) 5 % (24-48) Monocytes (%) (Auto) 4 % (0-9) 8 % (0-9) Eosinophils (%) (Auto) 0 % (0-3) 0 % (0-3) Basophils (%) (Auto) 0 % (0-3) 0 % (0-3) Neutrophils # (Auto) 11.9 x10^3/uL (1.8-7.7) 18.1 x10^3/uL (1.8-7.7) Lymphocytes # (Auto) 0.9 x10^3/uL (1.0-4.8) 1.0 x10^3/uL (1.0-4.8) Monocytes # (Auto) 0.5 x10^3/uL (0.0-1.1) 1.8 x10^3/uL (0.0-1.1) Eosinophils # (Auto) 0.0 x10^3/uL (0.0-0.7) 0.0 x10^3/uL (0.0-0.7) Basophils # (Auto) 0.0 x10^3/uL (0.0-0.2) 0.0 x10^3/uL (0.0-0.2) Segmented Neutrophils % 87 % (35-66) Lymphocytes % 7 % (24-48) Monocytes % 5 % (0-10) Eosinophils % 1 % (0-5) Platelet Estimate Adequate (ADEQUATE) Prothrombin Time 11.8 SEC (11.7-14.0) Prothromb Time International Ratio 0.9 (0.8-1.1) Sodium Level 136 mmol/L (136-145) 136 mmol/L (136-145) Potassium Level 3.9 mmol/L (3.5-5.1) 4.0 mmol/L (3.5-5.1) Chloride Level 99 mmol/L (98-107) 100 mmol/L (98-107) Carbon Dioxide Level 27 mmol/L (21-32) 24 mmol/L (21-32) Anion Gap 10 (6-14) 12 (6-14) Blood Urea Nitrogen 7 mg/dL (7-20) 12 mg/dL (7-20) Creatinine 0.6 mg/dL (0.6-1.0) 0.6 mg/dL (0.6-1.0) Estimated GFR (Cockcroft-Gault) 94.8 94.8 BUN/Creatinine Ratio 12 (6-20) 20 (6-20) Glucose Level 149 mg/dL (70-99) 144 mg/dL (70-99) Calcium Level 9.0 mg/dL (8.5-10.1) 8.9 mg/dL (8.5-10.1) Magnesium Level 1.6 mg/dL (1.8-2.4) Total Bilirubin 0.5 mg/dL (0.2-1.0) 0.5 mg/dL (0.2-1.0) Aspartate Amino Transf (AST/SGOT) 20 U/L (15-37) 20 U/L (15-37) Alanine Aminotransferase (ALT/SGPT) 19 U/L (14-59) 18 U/L (14-59) Alkaline Phosphatase 120 U/L (46-116) 101 U/L (46-116) Creatine Kinase 56 U/L (26-192) Creatine Kinase MB (Mass) 1.5 ng/mL (0.0-3.6) Creatine Kinase MB Relative Index % (0-4) Troponin I Quantitative 0.023 ng/mL (0.000-0.055) JX-Biq-A-Type Natriuretic Peptide 580 pg/mL (0-449) Total Protein 7.2 g/dL (6.4-8.2) 7.4 g/dL (6.4-8.2) Albumin 3.7 g/dL (3.4-5.0) 3.4 g/dL (3.4-5.0) Albumin/Globulin Ratio 1.1 (1.0-1.7) 0.9 (1.0-1.7) Lipase 70 U/L (73-393) Thyroid Stimulating Hormone (TSH) 0.870 uIU/mL (0.358-3.74) Images Images CT done on admission is reviewed Assessment/Plan Assessment/Plan SBO leukocytosis rec gut rest, IV fluids, NG tube serial exams will follow with you Thanks for consult KOLTON OLIVARES MD Mar 28, 2019 10:38
[2019-03-28] MEDS: AMINO AC 3%/ELECTROLYTE/GLYCER 1,000 ML IV SCH ×2 (10:55→22:54)
[2019-03-28 11:02] VITALS: BP 124/52
--- NOTE | 2019-03-28 11:23 | RAD ---
KUB 9:59 AM Clinical indications: Advancement of NG tube FINDINGS/ IMPRESSION: NG tube has been advanced and the tip is seen within the proximal body of the stomach. The proximal port is seen within the fundus of the stomach. Dilatation of small bowel loops is seen consistent with a small bowel obstruction and is unchanged from the study performed earlier same day at 9:15 AM. Electronically signed by: Daniel Lowe MD (03/28/2019 11:20 AM) [id number]
--- NOTE | 2019-03-28 11:59 | PDOC ---
Subjective: Subjective: Had to advance NG tube twice. abd pain remains 5/10 but improved w/ meds, no vomiting or flatus. Supportive family present with questions. Objective: Vital Signs: Vital Signs Date Time Temp Pulse Resp B/P (MAP) Pulse Ox O2 Delivery O2 Flow Rate FiO2 03/28/19 11:55 Nasal Cannula 2.0 03/28/19 11:02 98.2 92 12 124/52 (76) 97 98.2 Imaging: AAS 03/27 NG tube tip projects over the proximal stomach however the proximal sidehole is seen projecting over the distal esophagus. This should be advanced approximately 9 cm. The heart is not enlarged. Atherosclerotic calcifications of the tortuous aorta are seen. Small right pleural effusion with right lung base airspace opacities corresponding to known right lung mass. Small right pleural effusion. No definite pneumothorax. Multiple dilated loops of small bowel are seen consistent with small bowel obstruction better profiled on prior CT. Mild colonic stool content. No abnormal soft tissue mass effect. No free intraperitoneal gas. KUB 03/28 FINDINGS/ IMPRESSION: NG tube has been advanced and the tip is seen within the proximal body of the stomach. The proximal port is seen within the fundus of the stomach. Dilatation of small bowel loops is seen consistent with a small bowel obstruction and is unchanged from the study performed earlier same day at 9:15 AM. PE: GEN: NAD HEENT: NG brownish ~600cc in canister LUNGS: NC 2L HEART: RRR ABD: tender, quiet NEURO/PSYCH: A & O �3 A/P: SBO Leukocytosis - no labs today -- Continue per surgery. BETTY JORGE Mar 28, 2019 11:59
--- NOTE | 2019-03-28 12:40 | PDOC ---
JOANA LEE WATCH REPAIRER 03/28/19 1239: SURGICAL PROGRESS NOTE Subjective ongoing abdominal pain bladder pressure--has not been able to urinate no flatus Vital Signs Vital Signs Date Time Temp Pulse Resp B/P (MAP) Pulse Ox O2 Delivery O2 Flow Rate FiO2 03/28/19 11:55 Nasal Cannula 2.0 03/28/19 11:02 98.2 92 12 124/52 (76) 97 98.2 I&O Intake and Output 03/28/19 07:00 Intake Total 0 ml Output Total 500 ml Balance -500 ml Intake Oral 0 ml Drainage Total 500 ml # Voids 1 General: Alert, Cooperative HEENT: Other (NG bilious ) Abdomen: Soft, Other (distended, TTP on exam lower abdomen ) Labs Laboratory Tests Test 03/26/19 17:16 03/26/19 18:00 03/26/19 18:35 03/27/19 04:20 Urine Collection Type Unknown Urine Color Yellow Urine Clarity Cloudy Urine pH 7.5 Urine Specific [place] 1.010 Urine Protein Negative mg/dL (NEG-TRACE) Urine Glucose (UA) Negative mg/dL (NEG) Urine Ketones (Stick) Trace mg/dL (NEG) Urine Blood Negative (NEG) Urine Nitrite Negative (NEG) Urine Bilirubin Negative (NEG) Urine Urobilinogen Dipstick 0.2 mg/dL (0.2 mg/dL) Urine Leukocyte Esterase Trace (NEG) Urine RBC Occ /HPF (0-2) Urine WBC 1-4 /HPF (0-4) Urine Squamous Epithelial Cells Few /LPF Urine Amorphous Sediment Present /HPF Urine Bacteria 0 /HPF (0-FEW) Urine Mucus Slight /LPF White Blood Count 13.3 x10^3/uL (4.0-11.0) 20.9 x10^3/uL (4.0-11.0) Red Blood Count 5.02 x10^6/uL (3.50-5.40) 4.92 x10^6/uL (3.50-5.40) Hemoglobin 13.6 g/dL (12.0-15.5) 13.2 g/dL (12.0-15.5) Hematocrit 41.7 % (36.0-47.0) 41.1 % (36.0-47.0) Mean Corpuscular Volume 83 fL (79-100) 83 fL (79-100) Mean Corpuscular Hemoglobin 27 pg (25-35) 27 pg (25-35) Mean Corpuscular Hemoglobin Concent 33 g/dL (31-37) 32 g/dL (31-37) Red Cell Distribution Width 14.7 % (11.5-14.5) 15.0 % (11.5-14.5) Platelet Count 346 x10^3/uL (140-400) 347 x10^3/uL (140-400) Neutrophils (%) (Auto) 89 % (31-73) 87 % (31-73) Lymphocytes (%) (Auto) 7 % (24-48) 5 % (24-48) Monocytes (%) (Auto) 4 % (0-9) 8 % (0-9) Eosinophils (%) (Auto) 0 % (0-3) 0 % (0-3) Basophils (%) (Auto) 0 % (0-3) 0 % (0-3) Neutrophils # (Auto) 11.9 x10^3/uL (1.8-7.7) 18.1 x10^3/uL (1.8-7.7) Lymphocytes # (Auto) 0.9 x10^3/uL (1.0-4.8) 1.0 x10^3/uL (1.0-4.8) Monocytes # (Auto) 0.5 x10^3/uL (0.0-1.1) 1.8 x10^3/uL (0.0-1.1) Eosinophils # (Auto) 0.0 x10^3/uL (0.0-0.7) 0.0 x10^3/uL (0.0-0.7) Basophils # (Auto) 0.0 x10^3/uL (0.0-0.2) 0.0 x10^3/uL (0.0-0.2) Segmented Neutrophils % 87 % (35-66) Lymphocytes % 7 % (24-48) Monocytes % 5 % (0-10) Eosinophils % 1 % (0-5) Platelet Estimate Adequate (ADEQUATE) Prothrombin Time 11.8 SEC (11.7-14.0) Prothromb Time International Ratio 0.9 (0.8-1.1) Sodium Level 136 mmol/L (136-145) 136 mmol/L (136-145) Potassium Level 3.9 mmol/L (3.5-5.1) 4.0 mmol/L (3.5-5.1) Chloride Level 99 mmol/L (98-107) 100 mmol/L (98-107) Carbon Dioxide Level 27 mmol/L (21-32) 24 mmol/L (21-32) Anion Gap 10 (6-14) 12 (6-14) Blood Urea Nitrogen 7 mg/dL (7-20) 12 mg/dL (7-20) Creatinine 0.6 mg/dL (0.6-1.0) 0.6 mg/dL (0.6-1.0) Estimated GFR (Cockcroft-Gault) 94.8 94.8 BUN/Creatinine Ratio 12 (6-20) 20 (6-20) Glucose Level 149 mg/dL (70-99) 144 mg/dL (70-99) Calcium Level 9.0 mg/dL (8.5-10.1) 8.9 mg/dL (8.5-10.1) Magnesium Level 1.6 mg/dL (1.8-2.4) Total Bilirubin 0.5 mg/dL (0.2-1.0) 0.5 mg/dL (0.2-1.0) Aspartate Amino Transf (AST/SGOT) 20 U/L (15-37) 20 U/L (15-37) Alanine Aminotransferase (ALT/SGPT) 19 U/L (14-59) 18 U/L (14-59) Alkaline Phosphatase 120 U/L (46-116) 101 U/L (46-116) Creatine Kinase 56 U/L (26-192) Creatine Kinase MB (Mass) 1.5 ng/mL (0.0-3.6) Creatine Kinase MB Relative Index % (0-4) Troponin I Quantitative 0.023 ng/mL (0.000-0.055) NF-Lha-L-Type Natriuretic Peptide 580 pg/mL (0-449) Total Protein 7.2 g/dL (6.4-8.2) 7.4 g/dL (6.4-8.2) Albumin 3.7 g/dL (3.4-5.0) 3.4 g/dL (3.4-5.0) Albumin/Globulin Ratio 1.1 (1.0-1.7) 0.9 (1.0-1.7) Lipase 70 U/L (73-393) Thyroid Stimulating Hormone (TSH) 0.870 uIU/mL (0.358-3.74) Problem List Problems Medical Problems: (1) Intractable abdominal pain Status: Acute (2) Intractable vomiting Status: Acute (3) Small bowel obstruction Status: Acute Assessment/Plan sbo continued obstructive symptoms will review with Dr Olivares, continue bowel rest, NG, hydration consider SBFT KOLTON OLIVARES MD 03/28/19 1323: SURGICAL PROGRESS NOTE Assessment/Plan pt seen and examined urination issues as above will ask for SBFT tomorrow JOANA LEE APRN Mar 28, 2019 12:39 KOLTON OLIVARES MD Mar 28, 2019 13:23
--- NOTE | 2019-03-28 13:07 | NUR ---
Patient was having frequency and urgency to void every 5-15 minutes. Patient was bladder scanned and patient was retaining about 360mls. Dr. Mead was paged and notified. Received orders to straight cath patient PRN if grater than 350 in bladder. Patient was straight cath and immediately received about 400mls. Will continue to monitor patient.
[2019-03-28 15:00] VITALS: BP 126/59
--- NOTE | 2019-03-28 16:37 | PDOC ---
PROGRESS NOTES Chief Complaint Chief Complaint acute abd pain small bowel obstruction known lung cancer, stable tobacco use disorder History of Present Illness History of Present Illness better output from NG today, was adjusted with acute abd series from yesterday afternoon cont current Vitals Vitals Vital Signs Date Time Temp Pulse Resp B/P (MAP) Pulse Ox O2 Delivery O2 Flow Rate FiO2 03/28/19 16:28 Nasal Cannula 2.0 03/28/19 15:00 98.0 70 18 126/59 (81) 95 98.0 Physical Exam General: Alert, Cooperative Heart: Regular rate Abdomen: Soft, Other (distended, TTP on exam lower abdomen ) Extremities: No clubbing, No cyanosis Skin: No rashes, No significant lesion Assessment and Plan Assessmemt and Plan Problems Medical Problems: (1) Intractable abdominal pain Status: Acute (2) Intractable vomiting Status: Acute (3) Small bowel obstruction Status: Acute Comment Review of Relevant I have reviewed the following items abilio (where applicable) has been applied. Labs Laboratory Tests Test 03/26/19 17:16 03/26/19 18:00 03/26/19 18:35 03/27/19 04:20 Urine Collection Type Unknown Urine Color Yellow Urine Clarity Cloudy Urine pH 7.5 Urine Specific [place] 1.010 Urine Protein Negative mg/dL (NEG-TRACE) Urine Glucose (UA) Negative mg/dL (NEG) Urine Ketones (Stick) Trace mg/dL (NEG) Urine Blood Negative (NEG) Urine Nitrite Negative (NEG) Urine Bilirubin Negative (NEG) Urine Urobilinogen Dipstick 0.2 mg/dL (0.2 mg/dL) Urine Leukocyte Esterase Trace (NEG) Urine RBC Occ /HPF (0-2) Urine WBC 1-4 /HPF (0-4) Urine Squamous Epithelial Cells Few /LPF Urine Amorphous Sediment Present /HPF Urine Bacteria 0 /HPF (0-FEW) Urine Mucus Slight /LPF White Blood Count 13.3 x10^3/uL (4.0-11.0) 20.9 x10^3/uL (4.0-11.0) Red Blood Count 5.02 x10^6/uL (3.50-5.40) 4.92 x10^6/uL (3.50-5.40) Hemoglobin 13.6 g/dL (12.0-15.5) 13.2 g/dL (12.0-15.5) Hematocrit 41.7 % (36.0-47.0) 41.1 % (36.0-47.0) Mean Corpuscular Volume 83 fL (79-100) 83 fL (79-100) Mean Corpuscular Hemoglobin 27 pg (25-35) 27 pg (25-35) Mean Corpuscular Hemoglobin Concent 33 g/dL (31-37) 32 g/dL (31-37) Red Cell Distribution Width 14.7 % (11.5-14.5) 15.0 % (11.5-14.5) Platelet Count 346 x10^3/uL (140-400) 347 x10^3/uL (140-400) Neutrophils (%) (Auto) 89 % (31-73) 87 % (31-73) Lymphocytes (%) (Auto) 7 % (24-48) 5 % (24-48) Monocytes (%) (Auto) 4 % (0-9) 8 % (0-9) Eosinophils (%) (Auto) 0 % (0-3) 0 % (0-3) Basophils (%) (Auto) 0 % (0-3) 0 % (0-3) Neutrophils # (Auto) 11.9 x10^3/uL (1.8-7.7) 18.1 x10^3/uL (1.8-7.7) Lymphocytes # (Auto) 0.9 x10^3/uL (1.0-4.8) 1.0 x10^3/uL (1.0-4.8) Monocytes # (Auto) 0.5 x10^3/uL (0.0-1.1) 1.8 x10^3/uL (0.0-1.1) Eosinophils # (Auto) 0.0 x10^3/uL (0.0-0.7) 0.0 x10^3/uL (0.0-0.7) Basophils # (Auto) 0.0 x10^3/uL (0.0-0.2) 0.0 x10^3/uL (0.0-0.2) Segmented Neutrophils % 87 % (35-66) Lymphocytes % 7 % (24-48) Monocytes % 5 % (0-10) Eosinophils % 1 % (0-5) Platelet Estimate Adequate (ADEQUATE) Prothrombin Time 11.8 SEC (11.7-14.0) Prothromb Time International Ratio 0.9 (0.8-1.1) Sodium Level 136 mmol/L (136-145) 136 mmol/L (136-145) Potassium Level 3.9 mmol/L (3.5-5.1) 4.0 mmol/L (3.5-5.1) Chloride Level 99 mmol/L (98-107) 100 mmol/L (98-107) Carbon Dioxide Level 27 mmol/L (21-32) 24 mmol/L (21-32) Anion Gap 10 (6-14) 12 (6-14) Blood Urea Nitrogen 7 mg/dL (7-20) 12 mg/dL (7-20) Creatinine 0.6 mg/dL (0.6-1.0) 0.6 mg/dL (0.6-1.0) Estimated GFR (Cockcroft-Gault) 94.8 94.8 BUN/Creatinine Ratio 12 (6-20) 20 (6-20) Glucose Level 149 mg/dL (70-99) 144 mg/dL (70-99) Calcium Level 9.0 mg/dL (8.5-10.1) 8.9 mg/dL (8.5-10.1) Magnesium Level 1.6 mg/dL (1.8-2.4) Total Bilirubin 0.5 mg/dL (0.2-1.0) 0.5 mg/dL (0.2-1.0) Aspartate Amino Transf (AST/SGOT) 20 U/L (15-37) 20 U/L (15-37) Alanine Aminotransferase (ALT/SGPT) 19 U/L (14-59) 18 U/L (14-59) Alkaline Phosphatase 120 U/L (46-116) 101 U/L (46-116) Creatine Kinase 56 U/L (26-192) Creatine Kinase MB (Mass) 1.5 ng/mL (0.0-3.6) Creatine Kinase MB Relative Index % (0-4) Troponin I Quantitative 0.023 ng/mL (0.000-0.055) OY-Loq-Q-Type Natriuretic Peptide 580 pg/mL (0-449) Total Protein 7.2 g/dL (6.4-8.2) 7.4 g/dL (6.4-8.2) Albumin 3.7 g/dL (3.4-5.0) 3.4 g/dL (3.4-5.0) Albumin/Globulin Ratio 1.1 (1.0-1.7) 0.9 (1.0-1.7) Lipase 70 U/L (73-393) Thyroid Stimulating Hormone (TSH) 0.870 uIU/mL (0.358-3.74) Medications Current Medications Fentanyl Citrate (Fentanyl 2ml Vial) 50 mcg PRN Q15MIN PRN IV PAIN GREATER THAN 3/10 Last administered on 03/26/19 18:39; Start 03/26/19 at 16:45; Stop 03/27/19 at 16:44; Status DC Sodium Chloride 1,000 ml @ 1,000 mls/hr 1X ONCE IV Last administered on 17:30; Start 03/26/19 at 16:45; Stop 03/26/19 at 17:44; Status DC Famotidine (Pepcid Vial) 20 mg 1X ONCE IVP Last administered on 03/26/19 17:29; Start 03/26/19 at 16:45; Stop 03/26/19 at 16:49; Status DC Ondansetron HCl (Zofran) 4 mg 1X ONCE IV Last administered on 03/26/19 17:29; Start 03/26/19 at 16:45; Stop 03/26/19 at 16:49; Status DC Prochlorperazine Edisylate (Compazine) 10 mg 1X ONCE IV Last administered on 03/26/19 18:12; Start 03/26/19 at 18:45; Stop 03/26/19 at 18:46; Status DC Metoclopramide HCl (Reglan Vial) 10 mg 1X ONCE IV Last administered on 03/26/19 18:18; Start 03/26/19 at 18:45; Stop 03/26/19 at 18:46; Status DC Lorazepam (Ativan Inj) 2 mg 1X ONCE IM ; Start 03/26/19 at 19:30; Stop 03/26/19 at 19:31; Status DC Iohexol (Omnipaque 350 Mg/ml) 75 ml 1X ONCE IV Last administered on 8/11/19at 19:27; Start 03/26/19 at 19:15; Stop 03/26/19 at 19:16; Status DC Info (CONTRAST GIVEN -- Rx MONITORING) 1 each PRN DAILY PRN MC SEE COMMENTS; Start 03/26/19 at 19:15; Stop 03/28/19 at 19:14 Ondansetron HCl (Zofran) 4 mg PRN Q8HRS PRN IV NAUSEA/VOMITING Last administered on 03/27/19at 14:03; Start 03/26/19 at 20:00; Stop 03/27/19 at 19:59; Status DC Morphine Sulfate (Morphine Sulfate) 4 mg PRN Q2HR PRN IV PAIN Last administered on 03/27/19at 19:29; Start 03/26/19 at 20:00; Stop 03/27/19 at 19:59; Status DC Sodium Chloride 1,000 ml @ 75 mls/hr 1X ONCE IV Last administered on 03/26/19at 22:39; Start 03/26/19 at 20:00; Stop 03/27/19 at 09:19; Status DC Lorazepam (Ativan Inj) 1 mg PRN Q4HRS PRN IV ANXIETY / AGITATION; Start 03/26/19 at 20:00 Pantoprazole Sodium (PROTONIX VIAL for IV PUSH) 40 mg DAILYAC IVP Last administered on 03/28/19at 05:27; Start 03/27/19 at 10:30 Paroxetine HCl (Paxil) 20 mg DAILY PO ; Start 03/27/19 at 11:00 Tramadol HCl (Ultram) 50 mg PRN Q6HRS PRN PO PAIN; Start 03/27/19 at 10:30 Amino Acids/ Glycerin/ Electrolytes 1,000 ml @ 80 mls/hr [id number] IV Last administered on 03/28/19at 10:55; Start 03/27/19 at 11:00 Saliva Substitute (Biotene Moisturizing Mouth) 2 spray PRN Q15MIN PRN PO DRY MOUTH Last administered on 03/28/19at 16:28; Start 03/27/19 at 10:30 Nicotine (Nicoderm Cq 14mg) 1 patch PRN DAILY PRN TD SMOKING CESSATION; Start 03/27/19 at 10:45 Morphine Sulfate (Morphine Sulfate) 4 mg PRN Q2HR PRN IV PAIN Last administered on 03/28/19at 16:28; Start 03/27/19 at 23:00 Active Scripts Active Reported Prolia (Denosumab) 60 Mg/1 Ml Disp.syrin 60 Mg SQ Q 6 MONTHS Aspir 81 (Aspirin) 81 Mg Tablet.dr 81 Mg PO DAILY Glucosamine & Chondroitin Cap (Glucosa Ca 2KCL/Chondroitin Ca) 1 Each Capsule 1 Each PO BID Calcium 600 + Vit D 200 Tablet (Calcium Carbonate/Vitamin D3) 1 Each Tablet 1 Each PO BID Centrum Silver Tablet (Multivits-Min/Fa/Lycopene/Lut) 1 Each Tablet 1 Each PO DAILY Tramadol Hcl 50 Mg Tablet 50 Mg PO Q6H PRN Lipitor (Atorvastatin Calcium) 40 Mg Tablet 40 Mg PO HS Lisinopril 20 Mg Tablet 20 Mg PO HS Paxil (Paroxetine Hcl) 20 Mg Tablet 20 Mg PO DAILY Vitals/I & O Vital Sign - Last 24 Hours 03/27/19 03/27/19 03/27/19 03/27/19 18:20 19:00 19:29 19:55 Temp 98.8 98.8 Pulse 102 Resp 16 B/P (MAP) 111/51 (71) Pulse Ox 95 O2 Delivery Nasal Cannula Nasal Cannula Nasal Cannula Nasal Cannula O2 Flow Rate 2.0 2.0 2.0 2.0 03/27/19 03/27/19 03/27/19 03/28/19 23:00 23:00 23:31 02:20 Temp 98.0 98.0 Pulse 104 Resp 16 B/P (MAP) 122/62 (82) Pulse Ox 95 95 95 95 O2 Delivery Nasal Cannula Nasal Cannula Nasal Cannula Nasal Cannula O2 Flow Rate 2.0 2.0 2.0 2.0 03/28/19 03/28/19 03/28/19 03/28/19 03:00 03:10 05:28 06:20 Temp 98.7 98.7 Pulse 111 Resp 16 B/P (MAP) 137/49 (78) Pulse Ox 91 95 91 91 O2 Delivery Nasal Cannula Nasal Cannula Nasal Cannula Nasal Cannula O2 Flow Rate 2.0 2.0 2.0 2.0 03/28/19 03/28/19 03/28/19 03/28/19 07:00 08:00 08:33 10:54 Temp 98.4 98.4 Pulse 103 Resp 18 B/P (MAP) 137/49 (78) Pulse Ox 96 O2 Delivery Nasal Cannula Nasal Cannula Nasal Cannula Nasal Cannula O2 Flow Rate 2.0 2.0 2.0 2.0 03/28/19 03/28/19 03/28/19 03/28/19 10:55 11:02 11:55 13:45 Temp 98.2 98.2 Pulse 92 Resp 12 B/P (MAP) 124/52 (76) Pulse Ox 97 O2 Delivery Nasal Cannula Nasal Cannula Nasal Cannula Nasal Cannula O2 Flow Rate 2.0 2.0 2.0 2.0 03/28/19 03/28/19 03/28/19 14:58 15:00 16:28 Temp 98.0 98.0 Pulse 70 Resp 18 B/P (MAP) 126/59 (81) Pulse Ox 95 O2 Delivery Nasal Cannula Nasal Cannula Nasal Cannula O2 Flow Rate 2.0 2.0 Intake and Output 03/27/19 03/27/19 03/28/19 15:00 23:00 07:00 Intake Total 0 ml 0 ml Output Total 450 ml 50 ml Balance -450 ml -50 ml Nutrition Consultation Dietary Evaluation: Recommendations by RD: PPN/TPN Comments: continue PPN until able to advance to a diet as tolerated Expected Outcomes/Goals: diet advancement/ tolerance to meet > 75% est nutr needs via po intake Malnutrition Findings: Body Fat Depletion (Non Severe: Mod to Severe Weight Status: Underweight RITU JIMENEZ MD Mar 28, 2019 16:37
[2019-03-28 19:00] VITALS: BP 103/46
--- NOTE | 2019-03-28 22:56 | NUR ---
Pt was unable to void and stated she feels like she is retaining urine again. RN bladder scanned pt and pt was retaining about 350 mls. Pt was straight cath and immediately received about 300 mls. Will continue to monitor pt closely.
[2019-03-28 23:00] VITALS: BP 107/48
[2019-03-29] MEDS: MORPHINE SULFATE 4 MG/ML VIAL. IV PRN ×5 (02:49→17:08)
[2019-03-29 03:00] VITALS: BP 110/47
[2019-03-29 05:10] LABS: BASO % 0 % (0-3); EOS % 0 % (0-3); HEMATOCRIT 35.3 % (36.0-47.0); HEMOGLOBIN 11.4 g/dL (12.0-15.5); LYMPH # 0.7 x10^3/uL (1.0-4.8); LYMPH % 5 % (24-48); MEAN CORPUSCULAR HEMOGLOBIN 27 pg (25-35); MEAN CORPUSCULAR HGB CONC 32 g/dL (31-37); MEAN CORPUSCULAR VOLUME 84 fL (79-100); MONO # 1.4 x10^3/uL (0.0-1.1); MONO % 10 % (0-9); NEUT % 85 % (31-73); PLATELET COUNT 301 x10^3/uL (140-400); RED BLOOD COUNT 4.23 x10^6/uL (3.50-5.40); RED CELL DISTRIBUTION WIDTH 14.9 % (11.5-14.5); WHITE BLOOD COUNT 14.1 x10^3/uL (4.0-11.0)
[2019-03-29 05:39] LABS: CALCIUM 8.8 mg/dL (8.5-10.1); CREATININE 1.8 mg/dL (0.6-1.0); GFR 26.7; POTASSIUM 5.1 mmol/L (3.5-5.1)
[2019-03-29 07:00] VITALS: BP 124/43
[2019-03-29] MEDS: PARoxetine 20 MG TABLET PO SCH (07:45)
[2019-03-29] MEDS: PANTOPRAZOLE IV PUSH 40 MG VIAL. IVP SCH (07:47)
--- NOTE | 2019-03-29 07:52 | NUR ---
Patient attempted to use bedside commode, was unable to urinate. Bladder scan revealed approximately 258ml of urine in bladder. Will return in approximately 1 hour and try again. Will continue to monitor.
--- NOTE | 2019-03-29 09:11 | NUR ---
Patient attempted to use BSC again to urinate, dribbled <10ml, bladder scanned again at 0855 this time showing >437ml, straighted cathed and got out 200ml. Will continue to scan and straight cath as necessary q 3 hours.
[2019-03-29] MEDS ORDERED: IV NORMAL SALINE 1000ML BAG 1,000 ML IV ONE (09:30)
[2019-03-29] MEDS ORDERED: IOHEXOL 300 MG/ML 100ML VIAL. IJ ONE (09:45)
[2019-03-29] MEDS ORDERED: CONTRAST GIVEN. MC PRN (10:00)
--- NOTE | 2019-03-29 10:04 | PDOC2 ---
PAUL HERNANDEZ CAR DISPATCHER 03/29/19 1004: UROLOGY CONSULT Date of Consult Date of Consult DATE: 03/29/19 TIME: 10:03 Reason for Consult Reason for Consult: Urinary retention Identification/Chief Complaint Chief Complaint Urinary retention Source Source: Patient History of Present Illness Reason for Visit: This pleasant 88 year ofd female is admitted for SBO and is currently undergoing bowel series. She is NPO for this reason. During the course of her hos pitalization she started to have some trouble voiding. Nurses have been straight cathing her q 3 hours for the past 36 hrs and patient has been unable to void on her own except for a "slight dribble." She denies dysuria or hematuria and has no history of kidney stones that she is aware of. Patient had trouble with bladder emptying one other time, in 2007 during another hospitali zation. She had to have a catheter at this time but does not remember how long she had it. Since then she has had no problems with her bladder and has not seen a Urologist to her knowledge. Past Medical History Cardiovascular: HTN Pulmonary: Other (smoker) Hepatobiliary: Other (HLD) Psych: Depression Past Surgical History Past Surgical History: Appendectomy, Hernia Repair, Tonsillectomy, Hysterectomy, Other (breast surgery) Family History Family History: Cancer Social History Social History: Parent, Grandparents <1 pack per day ALCOHOL: none Drugs: None Current Problem List Problems: (1) Urinary retention (2) SBO (small bowel obstruction) Current Medications Current Medications Current Medications Info (CONTRAST GIVEN -- Rx MONITORING) 1 each PRN DAILY PRN MC SEE COMMENTS; Start 03/29/19 at 10:00; Stop 03/31/19 at 09:59 Iohexol (Omnipaque 300 Mg/ml) 400 ml 1X ONCE IJ ; Start 03/29/19 at 09:45; Stop 03/29/19 at 09:51; Status DC Sodium Chloride 1,000 ml @ 125 mls/hr 1X ONCE IV Last administered on 03/29/19at 09:45; Start 03/29/19 at 09:30; Stop 03/29/19 at 17:29 Allergies Allergies: Coded Allergies: No Known Drug Allergies (Unverified , 03/05/14) ROS Review Of Systems: CONSTITUTIONAL: No fever or chills EYES: No recent changes SKIN: No rash or itching CARDIOVASCULAR: No chest pain, syncope, palpitations, or edema RESPIRATORY: No SOB or cough GASTROINTESTINAL: + ABD pain/SBO NEUROLOGICAL: No headaches or weakness ENDOCRINE: No cold or heat intolerance GENITOURINARY: + Retention MUSCULOSKELETAL: No back pain or joint pain LYMPHATICS: No enlarged lymph nodes PSYCHIATRIC: No anxiety or depression Physical Exam Physical Exam: General: Pleasant, no acute distress, well groomed Eyes: conjunctiva anicteric, eyes full range of motion ENT: moist oral mucosa, normal dentition, + NG tube in place Neck: Trachea midline, no masses Respiratory: unlabored breathing, not using accessory muscles, Abdomen: Generalized tenderness throughout abdomen. Skin: no rashes or skin lesions on visualized skin Psych: normal mood, affect. Alert and oriented x 3. Vitals VITALS Vital Signs Date Time Temp Pulse Resp B/P (MAP) Pulse Ox O2 Delivery O2 Flow Rate FiO2 03/29/19 09:45 Nasal Cannula 2.0 03/29/19 07:00 98.0 70 12 124/43 (70) 97 98.0 Labs Labs Laboratory Tests Test 03/29/19 05:00 White Blood Count 14.1 x10^3/uL (4.0-11.0) Red Blood Count 4.23 x10^6/uL (3.50-5.40) Hemoglobin 11.4 g/dL (12.0-15.5) Hematocrit 35.3 % (36.0-47.0) Mean Corpuscular Volume 84 fL (79-100) Mean Corpuscular Hemoglobin 27 pg (25-35) Mean Corpuscular Hemoglobin Concent 32 g/dL (31-37) Red Cell Distribution Width 14.9 % (11.5-14.5) Platelet Count 301 x10^3/uL (140-400) Neutrophils (%) (Auto) 85 % (31-73) Lymphocytes (%) (Auto) 5 % (24-48) Monocytes (%) (Auto) 10 % (0-9) Eosinophils (%) (Auto) 0 % (0-3) Basophils (%) (Auto) 0 % (0-3) Neutrophils # (Auto) 12.0 x10^3/uL (1.8-7.7) Lymphocytes # (Auto) 0.7 x10^3/uL (1.0-4.8) Monocytes # (Auto) 1.4 x10^3/uL (0.0-1.1) Eosinophils # (Auto) 0.0 x10^3/uL (0.0-0.7) Basophils # (Auto) 0.0 x10^3/uL (0.0-0.2) Sodium Level 132 mmol/L (136-145) Potassium Level 5.1 mmol/L (3.5-5.1) Chloride Level 98 mmol/L (98-107) Carbon Dioxide Level 24 mmol/L (21-32) Anion Gap 10 (6-14) Blood Urea Nitrogen 82 mg/dL (7-20) Creatinine 1.8 mg/dL (0.6-1.0) Estimated GFR (Cockcroft-Gault) 26.7 Glucose Level 106 mg/dL (70-99) Calcium Level 8.8 mg/dL (8.5-10.1) Laboratory Tests Test 03/29/19 05:00 White Blood Count 14.1 x10^3/uL (4.0-11.0) Red Blood Count 4.23 x10^6/uL (3.50-5.40) Hemoglobin 11.4 g/dL (12.0-15.5) Hematocrit 35.3 % (36.0-47.0) Mean Corpuscular Volume 84 fL (79-100) Mean Corpuscular Hemoglobin 27 pg (25-35) Mean Corpuscular Hemoglobin Concent 32 g/dL (31-37) Red Cell Distribution Width 14.9 % (11.5-14.5) Platelet Count 301 x10^3/uL (140-400) Neutrophils (%) (Auto) 85 % (31-73) Lymphocytes (%) (Auto) 5 % (24-48) Monocytes (%) (Auto) 10 % (0-9) Eosinophils (%) (Auto) 0 % (0-3) Basophils (%) (Auto) 0 % (0-3) Neutrophils # (Auto) 12.0 x10^3/uL (1.8-7.7) Lymphocytes # (Auto) 0.7 x10^3/uL (1.0-4.8) Monocytes # (Auto) 1.4 x10^3/uL (0.0-1.1) Eosinophils # (Auto) 0.0 x10^3/uL (0.0-0.7) Basophils # (Auto) 0.0 x10^3/uL (0.0-0.2) Sodium Level 132 mmol/L (136-145) Potassium Level 5.1 mmol/L (3.5-5.1) Chloride Level 98 mmol/L (98-107) Carbon Dioxide Level 24 mmol/L (21-32) Anion Gap 10 (6-14) Blood Urea Nitrogen 82 mg/dL (7-20) Creatinine 1.8 mg/dL (0.6-1.0) Estimated GFR (Cockcroft-Gault) 26.7 Glucose Level 106 mg/dL (70-99) Calcium Level 8.8 mg/dL (8.5-10.1) Assessment/Plan Assessment/Plan Discussed case with attend RN-We will place Moreira catheter for now to allow for small bowel obstruction to clear. She is getting a small bowel series currently and GI physicians are working on this. Voiding trial when Bowel issues are resolved and patient is more mobile. ASIA JONES MD 03/29/19 1632: UROLOGY CONSULT Assessment/Plan Assessment/Plan Situational AUR. agree w bladder rest till bowel function returns. PAUL HERNANDEZ APRN Mar 29, 2019 10:04 ASIA JONES MD Mar 29, 2019 16:32
--- NOTE | 2019-03-29 10:18 | NUR ---
SW following pt. PT/OT pending. SW will await for PT/OT to assess skilled needs. Will continue to follow.
--- NOTE | 2019-03-29 10:50 | PDOC ---
Subjective: Subjective: On commode w/ nurse present - maybe flatus, abd feels a little better today, ~1000cc from NG total. Objective: Objective: Reviewed chart - plans for SBS today. Vital Signs: Vital Signs Date Time Temp Pulse Resp B/P (MAP) Pulse Ox O2 Delivery O2 Flow Rate FiO2 03/29/19 09:45 Nasal Cannula 2.0 03/29/19 07:00 98.0 70 12 124/43 (70) 97 98.0 PE: GEN: on commode HEENT: NG bilious LUNGS: NC 2L HEART: RRR ABD: less tender today NEURO/PSYCH: A & O �3 A/P: SBO Leukocytosis - better ARTUR - Cr from 0.6 to 1.8, defer to primary -- Plans for SBS, will follow. BETTY JORGE Mar 29, 2019 10:50
--- NOTE | 2019-03-29 13:15 | PDOC ---
PROGRESS NOTES Chief Complaint Chief Complaint acute abd pain small bowel obstruction known lung cancer, stable tobacco use disorder History of Present Illness History of Present Illness better output from NG today, was adjusted with acute abd series from yesterday afternoon cont current Vitals Vitals Vital Signs Date Time Temp Pulse Resp B/P (MAP) Pulse Ox O2 Delivery O2 Flow Rate FiO2 03/29/19 12:25 97 Nasal Cannula 2.0 03/29/19 07:00 98.0 70 12 124/43 (70) 98.0 Physical Exam General: Alert, Cooperative Heart: Regular rate Abdomen: Soft, Other (distended, TTP on exam lower abdomen ) Extremities: No clubbing, No cyanosis Skin: No rashes, No significant lesion Labs LABS Laboratory Tests Test 03/29/19 05:00 White Blood Count 14.1 x10^3/uL (4.0-11.0) Red Blood Count 4.23 x10^6/uL (3.50-5.40) Hemoglobin 11.4 g/dL (12.0-15.5) Hematocrit 35.3 % (36.0-47.0) Mean Corpuscular Volume 84 fL (79-100) Mean Corpuscular Hemoglobin 27 pg (25-35) Mean Corpuscular Hemoglobin Concent 32 g/dL (31-37) Red Cell Distribution Width 14.9 % (11.5-14.5) Platelet Count 301 x10^3/uL (140-400) Neutrophils (%) (Auto) 85 % (31-73) Lymphocytes (%) (Auto) 5 % (24-48) Monocytes (%) (Auto) 10 % (0-9) Eosinophils (%) (Auto) 0 % (0-3) Basophils (%) (Auto) 0 % (0-3) Neutrophils # (Auto) 12.0 x10^3/uL (1.8-7.7) Lymphocytes # (Auto) 0.7 x10^3/uL (1.0-4.8) Monocytes # (Auto) 1.4 x10^3/uL (0.0-1.1) Eosinophils # (Auto) 0.0 x10^3/uL (0.0-0.7) Basophils # (Auto) 0.0 x10^3/uL (0.0-0.2) Sodium Level 132 mmol/L (136-145) Potassium Level 5.1 mmol/L (3.5-5.1) Chloride Level 98 mmol/L (98-107) Carbon Dioxide Level 24 mmol/L (21-32) Anion Gap 10 (6-14) Blood Urea Nitrogen 82 mg/dL (7-20) Creatinine 1.8 mg/dL (0.6-1.0) Estimated GFR (Cockcroft-Gault) 26.7 Glucose Level 106 mg/dL (70-99) Calcium Level 8.8 mg/dL (8.5-10.1) Assessment and Plan Assessmemt and Plan Problems Medical Problems: (1) Intractable abdominal pain Status: Acute (2) Intractable vomiting Status: Acute (3) Small bowel obstruction Status: Acute Comment Review of Relevant I have reviewed the following items abilio (where applicable) has been applied. Labs Laboratory Tests Test 03/29/19 05:00 White Blood Count 14.1 x10^3/uL (4.0-11.0) Red Blood Count 4.23 x10^6/uL (3.50-5.40) Hemoglobin 11.4 g/dL (12.0-15.5) Hematocrit 35.3 % (36.0-47.0) Mean Corpuscular Volume 84 fL (79-100) Mean Corpuscular Hemoglobin 27 pg (25-35) Mean Corpuscular Hemoglobin Concent 32 g/dL (31-37) Red Cell Distribution Width 14.9 % (11.5-14.5) Platelet Count 301 x10^3/uL (140-400) Neutrophils (%) (Auto) 85 % (31-73) Lymphocytes (%) (Auto) 5 % (24-48) Monocytes (%) (Auto) 10 % (0-9) Eosinophils (%) (Auto) 0 % (0-3) Basophils (%) (Auto) 0 % (0-3) Neutrophils # (Auto) 12.0 x10^3/uL (1.8-7.7) Lymphocytes # (Auto) 0.7 x10^3/uL (1.0-4.8) Monocytes # (Auto) 1.4 x10^3/uL (0.0-1.1) Eosinophils # (Auto) 0.0 x10^3/uL (0.0-0.7) Basophils # (Auto) 0.0 x10^3/uL (0.0-0.2) Sodium Level 132 mmol/L (136-145) Potassium Level 5.1 mmol/L (3.5-5.1) Chloride Level 98 mmol/L (98-107) Carbon Dioxide Level 24 mmol/L (21-32) Anion Gap 10 (6-14) Blood Urea Nitrogen 82 mg/dL (7-20) Creatinine 1.8 mg/dL (0.6-1.0) Estimated GFR (Cockcroft-Gault) 26.7 Glucose Level 106 mg/dL (70-99) Calcium Level 8.8 mg/dL (8.5-10.1) Laboratory Tests Test 03/29/19 05:00 White Blood Count 14.1 x10^3/uL (4.0-11.0) Red Blood Count 4.23 x10^6/uL (3.50-5.40) Hemoglobin 11.4 g/dL (12.0-15.5) Hematocrit 35.3 % (36.0-47.0) Mean Corpuscular Volume 84 fL (79-100) Mean Corpuscular Hemoglobin 27 pg (25-35) Mean Corpuscular Hemoglobin Concent 32 g/dL (31-37) Red Cell Distribution Width 14.9 % (11.5-14.5) Platelet Count 301 x10^3/uL (140-400) Neutrophils (%) (Auto) 85 % (31-73) Lymphocytes (%) (Auto) 5 % (24-48) Monocytes (%) (Auto) 10 % (0-9) Eosinophils (%) (Auto) 0 % (0-3) Basophils (%) (Auto) 0 % (0-3) Neutrophils # (Auto) 12.0 x10^3/uL (1.8-7.7) Lymphocytes # (Auto) 0.7 x10^3/uL (1.0-4.8) Monocytes # (Auto) 1.4 x10^3/uL (0.0-1.1) Eosinophils # (Auto) 0.0 x10^3/uL (0.0-0.7) Basophils # (Auto) 0.0 x10^3/uL (0.0-0.2) Sodium Level 132 mmol/L (136-145) Potassium Level 5.1 mmol/L (3.5-5.1) Chloride Level 98 mmol/L (98-107) Carbon Dioxide Level 24 mmol/L (21-32) Anion Gap 10 (6-14) Blood Urea Nitrogen 82 mg/dL (7-20) Creatinine 1.8 mg/dL (0.6-1.0) Estimated GFR (Cockcroft-Gault) 26.7 Glucose Level 106 mg/dL (70-99) Calcium Level 8.8 mg/dL (8.5-10.1) Microbiology 03/26/19 Urine Culture - Final, Complete 03/26/19 Urine Culture Result 1 (GUILLERMO) - Final, Complete Medications Current Medications Fentanyl Citrate (Fentanyl 2ml Vial) 50 mcg PRN Q15MIN PRN IV PAIN GREATER THAN 3/10 Last administered on 03/26/19at 18:39; Start 03/26/19 at 16:45; Stop 03/27/19 at 16:44; Status DC Sodium Chloride 1,000 ml @ 1,000 mls/hr 1X ONCE IV Last administered on 03/26/19at 17:30; Start 03/26/19 at 16:45; Stop 03/26/19 at 17:44; Status DC Famotidine (Pepcid Vial) 20 mg 1X ONCE IVP Last administered on 03/26/19 17:29; Start 03/26/19 at 16:45; Stop 03/26/19 at 16:49; Status DC Ondansetron HCl (Zofran) 4 mg 1X ONCE IV Last administered on 03/26/19at 17:29; Start 03/26/19 at 16:45; Stop 03/26/19 at 16:49; Status DC Prochlorperazine Edisylate (Compazine) 10 mg 1X ONCE IV Last administered on 03/26/19 18:12; Start 03/26/19 at 18:45; Stop 03/26/19 at 18:46; Status DC Metoclopramide HCl (Reglan Vial) 10 mg 1X ONCE IV Last administered on 03/26/19at 18:18; Start 03/26/19 at 18:45; Stop 03/26/19 at 18:46; Status DC Lorazepam (Ativan Inj) 2 mg 1X ONCE IM ; Start 03/26/19 at 19:30; Stop 03/26/19 at 19:31; Status DC Iohexol (Omnipaque 350 Mg/ml) 75 ml 1X ONCE IV Last administered on 03/26/19at 19:27; Start 03/26/19 at 19:15; Stop 03/26/19 at 19:16; Status DC Info (CONTRAST GIVEN -- Rx MONITORING) 1 each PRN DAILY PRN MC SEE COMMENTS; Start 03/26/19 at 19:15; Stop 03/28/19 at 19:14; Status DC Ondansetron HCl (Zofran) 4 mg PRN Q8HRS PRN IV NAUSEA/VOMITING Last administered on 03/27/19at 14:03; Start 03/26/19 at 20:00; Stop 03/27/19 at 19:59; Status DC Morphine Sulfate (Morphine Sulfate) 4 mg PRN Q2HR PRN IV PAIN Last administered on 03/27/19at 19:29; Start 03/26/19 at 20:00; Stop 03/27/19 at 19:59; Status DC Sodium Chloride 1,000 ml @ 75 mls/hr 1X ONCE IV Last administered on 03/26/19at 22:39; Start 03/26/19 at 20:00; Stop 03/27/19 at 09:19; Status DC Lorazepam (Ativan Inj) 1 mg PRN Q4HRS PRN IV ANXIETY / AGITATION; Start 03/26/19 at 20:00 Pantoprazole Sodium (PROTONIX VIAL for IV PUSH) 40 mg DAILYAC IVP Last administered on 03/29/19at 07:47; Start 03/27/19 at 10:30 Paroxetine HCl (Paxil) 20 mg DAILY PO ; Start 03/27/19 at 11:00 Tramadol HCl (Ultram) 50 mg PRN Q6HRS PRN PO PAIN; Start 03/27/19 at 10:30 Amino Acids/ Glycerin/ Electrolytes 1,000 ml @ 80 mls/hr [id number] IV Last administered on 03/28/19at 22:54; Start 03/27/19 at 11:00 Saliva Substitute (Biotene Moisturizing Mouth) 2 spray PRN Q15MIN PRN PO DRY MOUTH Last administered on 03/28/19at 21:44; Start 03/27/19 at 10:30 Nicotine (Nicoderm Cq 14mg) 1 patch PRN DAILY PRN TD SMOKING CESSATION; Start 03/27/19 at 10:45 Morphine Sulfate (Morphine Sulfate) 4 mg PRN Q2HR PRN IV PAIN Last administered on 03/29/19at 09:45; Start 03/27/19 at 23:00 Sodium Chloride 1,000 ml @ 125 mls/hr 1X ONCE IV Last administered on 03/29/19at 09:45; Start 03/29/19 at 09:30; Stop 03/29/19 at 17:29 Iohexol (Omnipaque 300 Mg/ml) 400 ml 1X ONCE IJ ; Start 03/29/19 at 09:45; Stop 03/29/19 at 09:51; Status DC Info (CONTRAST GIVEN -- Rx MONITORING) 1 each PRN DAILY PRN MC SEE COMMENTS; Start 03/29/19 at 10:00; Stop 03/31/19 at 09:59 Active Scripts Active Reported Prolia (Denosumab) 60 Mg/1 Ml Disp.syrin 60 Mg SQ Q 6 MONTHS Aspir 81 (Aspirin) 81 Mg Tablet. 81 Mg PO DAILY Glucosamine & Chondroitin Cap (Glucosa Ca 2KCL/Chondroitin Ca) 1 Each Capsule 1 Each PO BID Calcium 600 + Vit D 200 Tablet (Calcium Carbonate/Vitamin D3) 1 Each Tablet 1 Each PO BID Centrum Silver Tablet (Multivits-Min/Fa/Lycopene/Lut) 1 Each Tablet 1 Each PO DAILY Tramadol Hcl 50 Mg Tablet 50 Mg PO Q6H PRN Lipitor (Atorvastatin Calcium) 40 Mg Tablet 40 Mg PO HS Lisinopril 20 Mg Tablet 20 Mg PO HS Paxil (Paroxetine Hcl) 20 Mg Tablet 20 Mg PO DAILY Vitals/I & O Vital Sign - Last 24 Hours 03/28/19 03/28/19 03/28/19 03/28/19 13:45 14:58 15:00 16:28 Temp 98.0 98.0 Pulse 70 Resp 18 B/P (MAP) 126/59 (81) Pulse Ox 95 O2 Delivery Nasal Cannula Nasal Cannula Nasal Cannula Nasal Cannula O2 Flow Rate 2.0 2.0 2.0 03/28/19 03/28/19 03/28/19 03/28/19 17:20 19:00 19:06 19:19 Temp 97.9 97.9 Pulse 98 Resp 17 B/P (MAP) 103/46 (65) Pulse Ox 96 95 O2 Delivery Nasal Cannula Nasal Cannula Nasal Cannula Nasal Cannula O2 Flow Rate 2.0 2.0 2.0 03/28/19 03/28/19 03/28/19 03/28/19 19:58 21:44 22:20 23:00 Temp 98.0 98.0 Pulse 97 Resp 17 B/P (MAP) 107/48 (67) Pulse Ox 95 95 95 98 O2 Delivery Nasal Cannula Nasal Cannula Nasal Cannula Nasal Cannula O2 Flow Rate 2.0 2.0 2.0 03/29/19 03/29/19 03/29/19 03/29/19 02:49 03:00 04:09 05:12 Temp 98.1 98.1 Pulse 94 Resp 17 B/P (MAP) 110/47 (68) Pulse Ox 98 95 98 98 O2 Delivery Nasal Cannula Nasal Cannula Nasal Cannula Nasal Cannula O2 Flow Rate 2.0 2.0 2.0 03/29/19 03/29/19 03/29/19 03/29/19 06:06 07:00 07:40 09:45 Temp 98.0 98.0 Pulse 70 Resp 12 B/P (MAP) 124/43 (70) Pulse Ox 98 97 O2 Delivery Nasal Cannula Nasal Cannula Nasal Cannula Nasal Cannula O2 Flow Rate 2.0 2.0 2.0 2.0 03/29/19 12:25 Pulse Ox 97 O2 Delivery Nasal Cannula O2 Flow Rate 2.0 Intake and Output 03/28/19 03/28/19 03/29/19 15:00 23:00 07:00 Intake Total 0 ml Output Total 425 ml 300 ml 250 ml Balance -425 ml -300 ml -250 ml Nutrition Consultation Dietary Evaluation: Recommendations by RD: PPN/TPN Comments: continue PPN until able to advance to a diet as tolerated Expected Outcomes/Goals: diet advancement/ tolerance to meet > 75% est nutr needs via po intake Malnutrition Findings: Body Fat Depletion (Non Severe: Mod to Severe Weight Status: Underweight RITU JIMENEZ MD Mar 29, 2019 13:15
[2019-03-29 15:00] VITALS: BP 132/69
[2019-03-29] MEDS: ONDANSETRON PF 4 MG/2 ML VIAL. IV PRN (15:08)
--- NOTE | 2019-03-29 15:47 | NUR ---
SW following. PT/OT was on hold due to SBS earlier. Will continue to follow.
--- NOTE | 2019-03-29 16:12 | PDOC2 ---
CONSULT Date of Consult Date of Consult DATE: 03/29/19 TIME: 16:07 Reason for Consult Reason for Consult: ARTUR Referring Physician Referring Physician: MARLENI Identification/Chief Complaint Chief Complaint N/V AND ABD PAIN Source Source: Chart review History of Present Illness Reason for Visit: THIS IS AN 88 YR OLD WITH N/V AND ABD PAIN. HX OF SEVERAL ABD SURGERIES AND SHE IS NOW DX WITH A SBO. HER CR IS 1.8. SHE HAS NO HX OF CKD. HX NOTABLE FOR URINARY RETENTION IN THE PAST. SHE HAS HAD PROBLEMS WITH THIS DURING THIS HOSPITALIZATION AND A [facility] IS TO BE PLACED BY UROLOGY. SHE IS UNDERGOING GI EVALUATION AT THIS TIME. NO NEPHROTOXINS NOTED. Past Medical History Cardiovascular: HTN Pulmonary: Other (smoker) Heme/Onc: No pertinent hx Hepatobiliary: No pertinent hx, Other (HLD) Psych: No pertinent hx, Depression Infectious disease: No pertinent hx Renal/: No pertinent hx Endocrine: No pertinent hx Dermatology: No pertinent hx Past Surgical History Past Surgical History: Appendectomy, Hernia Repair, Tonsillectomy, Hysterectomy, Other (breast surgery) Family History Family History: Cancer Social History Social History: Parent, Grandparents <1 pack per day ALCOHOL: none Drugs: None Current Problem List Problem List Problems Medical Problems: (1) Intractable abdominal pain Status: Acute (2) Intractable vomiting Status: Acute (3) Small bowel obstruction Status: Acute Current Medications Current Medications Current Medications Fentanyl Citrate (Fentanyl 2ml Vial) 50 mcg PRN Q15MIN PRN IV PAIN GREATER THAN 3/10 Last administered on 03/26/19at 18:39; Start 03/26/19 at 16:45; Stop 03/27/19 at 16:44; Status DC Sodium Chloride 1,000 ml @ 1,000 mls/hr 1X ONCE IV Last administered on 03/26/19at 17:30; Start 03/26/19 at 16:45; Stop 03/26/19 at 17:44; Status DC Famotidine (Pepcid Vial) 20 mg 1X ONCE IVP Last administered on 03/26/19at 17:29; Start 03/26/19 at 16:45; Stop 03/26/19 at 16:49; Status DC Ondansetron HCl (Zofran) 4 mg 1X ONCE IV Last administered on 03/26/19at 17:29; Start 03/26/19 at 16:45; Stop 03/26/19 at 16:49; Status DC Prochlorperazine Edisylate (Compazine) 10 mg 1X ONCE IV Last administered on 03/26/19at 18:12; Start 03/26/19 at 18:45; Stop 03/26/19 at 18:46; Status DC Metoclopramide HCl (Reglan Vial) 10 mg 1X ONCE IV Last administered on 03/26/19at 18:18; Start 03/26/19 at 18:45; Stop 03/26/19 at 18:46; Status DC Lorazepam (Ativan Inj) 2 mg 1X ONCE IM ; Start 03/26/19 at 19:30; Stop 03/26/19 at 19:31; Status DC Iohexol (Omnipaque 350 Mg/ml) 75 ml 1X ONCE IV Last administered on 03/26/19at 19:27; Start 03/26/19 at 19:15; Stop 03/26/19 at 19:16; Status DC Info (CONTRAST GIVEN -- Rx MONITORING) 1 each PRN DAILY PRN MC SEE COMMENTS; Start 03/26/19 at 19:15; Stop 03/28/19 at 19:14; Status DC Ondansetron HCl (Zofran) 4 mg PRN Q8HRS PRN IV NAUSEA/VOMITING Last administered on 03/27/19at 14:03; Start 03/26/19 at 20:00; Stop 03/27/19 at 19:59; Status DC Morphine Sulfate (Morphine Sulfate) 4 mg PRN Q2HR PRN IV PAIN Last administered on 03/27/19at 19:29; Start 03/26/19 at 20:00; Stop 03/27/19 at 19:59; Status DC Sodium Chloride 1,000 ml @ 75 mls/hr 1X ONCE IV Last administered on 03/26/19at 22:39; Start 03/26/19 at 20:00; Stop 03/27/19 at 09:19; Status DC Lorazepam (Ativan Inj) 1 mg PRN Q4HRS PRN IV ANXIETY / AGITATION; Start 03/26/19 at 20:00 Pantoprazole Sodium (PROTONIX VIAL for IV PUSH) 40 mg DAILYAC IVP Last administered on 03/29/19at 07:47; Start 03/27/19 at 10:30 Paroxetine HCl (Paxil) 20 mg DAILY PO ; Start 03/27/19 at 11:00 Tramadol HCl (Ultram) 50 mg PRN Q6HRS PRN PO PAIN; Start 03/27/19 at 10:30 Amino Acids/ Glycerin/ Electrolytes 1,000 ml @ 80 mls/hr [id number] IV Last administered on 03/28/19at 22:54; Start 03/27/19 at 11:00 Saliva Substitute (Biotene Moisturizing Mouth) 2 spray PRN Q15MIN PRN PO DRY MOUTH Last administered on 03/28/19at 21:44; Start 03/27/19 at 10:30 Nicotine (Nicoderm Cq 14mg) 1 patch PRN DAILY PRN TD SMOKING CESSATION; Start 03/27/19 at 10:45 Morphine Sulfate (Morphine Sulfate) 4 mg PRN Q2HR PRN IV PAIN Last administered on 03/29/19at 14:58; Start 03/27/19 at 23:00 Sodium Chloride 1,000 ml @ 125 mls/hr 1X ONCE IV Last administered on 03/29/19at 09:45; Start 03/29/19 at 09:30; Stop 03/29/19 at 17:29 Iohexol (Omnipaque 300 Mg/ml) 400 ml 1X ONCE IJ Last administered on 03/29/19at 15:21; Start 03/29/19 at 09:45; Stop 03/29/19 at 09:51; Status DC Info (CONTRAST GIVEN -- Rx MONITORING) 1 each PRN DAILY PRN MC SEE COMMENTS; Start 03/29/19 at 10:00; Stop 03/31/19 at 09:59 Ondansetron HCl (Zofran) 4 mg PRN Q8HRS PRN IV NAUSEA/VOMITING Last administered on 03/29/19at 15:08; Start 03/29/19 at 15:15 Active Scripts Active Reported Prolia (Denosumab) 60 Mg/1 Ml Disp.syrin 60 Mg SQ Q 6 MONTHS Aspir 81 (Aspirin) 81 Mg Tablet.dr 81 Mg PO DAILY Glucosamine & Chondroitin Cap (Glucosa Ca 2KCL/Chondroitin Ca) 1 Each Capsule 1 Each PO BID Calcium 600 + Vit D 200 Tablet (Calcium Carbonate/Vitamin D3) 1 Each Tablet 1 Each PO BID Centrum Silver Tablet (Multivits-Min/Fa/Lycopene/Lut) 1 Each Tablet 1 Each PO DAILY Tramadol Hcl 50 Mg Tablet 50 Mg PO Q6H PRN Lipitor (Atorvastatin Calcium) 40 Mg Tablet 40 Mg PO HS Lisinopril 20 Mg Tablet 20 Mg PO HS Paxil (Paroxetine Hcl) 20 Mg Tablet 20 Mg PO DAILY Allergies Allergies: Coded Allergies: No Known Drug Allergies (Unverified , 03/05/14) ROS General: YES: Fatigue, Malaise, Appetite PSYCHOLOGICAL ROS: YES: Anxiety Eyes: Yes Decreased vision HEENT: YES: Heacaches Respiratory: YES: Cough Gastrointestinal: Yes Nausea, Yes Vomiting, Yes Abdominal Pain Genitourinary: YES Retention Musculoskeletal: Yes Muscular Weakness Neurological: Yes Weakness Skin: Yes Dry Skin Physical Exam General: Alert, Cooperative, No acute distress HEENT: Atraumatic, PERRLA Lungs: Clear to auscultation Heart: Regular rate, Normal S1 Abdomen: Normal bowel sounds, Soft, Other (HYPOACTIVE) Neuro: Cranial nerves 3-12 NL Psych/Mental Status: Mental status NL, Mood NL MUSCULOSKELETAL: No joint tenderness, No deformity, No swelling Vitals VITALS Vital Signs Date Time Temp Pulse Resp B/P (MAP) Pulse Ox O2 Delivery O2 Flow Rate FiO2 03/29/19 15:54 90 Nasal Cannula 2.0 03/29/19 15:00 97.9 91 18 132/69 (90) 97.9 Labs Labs Laboratory Tests Test 03/29/19 05:00 White Blood Count 14.1 x10^3/uL (4.0-11.0) Red Blood Count 4.23 x10^6/uL (3.50-5.40) Hemoglobin 11.4 g/dL (12.0-15.5) Hematocrit 35.3 % (36.0-47.0) Mean Corpuscular Volume 84 fL (79-100) Mean Corpuscular Hemoglobin 27 pg (25-35) Mean Corpuscular Hemoglobin Concent 32 g/dL (31-37) Red Cell Distribution Width 14.9 % (11.5-14.5) Platelet Count 301 x10^3/uL (140-400) Neutrophils (%) (Auto) 85 % (31-73) Lymphocytes (%) (Auto) 5 % (24-48) Monocytes (%) (Auto) 10 % (0-9) Eosinophils (%) (Auto) 0 % (0-3) Basophils (%) (Auto) 0 % (0-3) Neutrophils # (Auto) 12.0 x10^3/uL (1.8-7.7) Lymphocytes # (Auto) 0.7 x10^3/uL (1.0-4.8) Monocytes # (Auto) 1.4 x10^3/uL (0.0-1.1) Eosinophils # (Auto) 0.0 x10^3/uL (0.0-0.7) Basophils # (Auto) 0.0 x10^3/uL (0.0-0.2) Sodium Level 132 mmol/L (136-145) Potassium Level 5.1 mmol/L (3.5-5.1) Chloride Level 98 mmol/L (98-107) Carbon Dioxide Level 24 mmol/L (21-32) Anion Gap 10 (6-14) Blood Urea Nitrogen 82 mg/dL (7-20) Creatinine 1.8 mg/dL (0.6-1.0) Estimated GFR (Cockcroft-Gault) 26.7 Glucose Level 106 mg/dL (70-99) Calcium Level 8.8 mg/dL (8.5-10.1) Laboratory Tests Test 03/29/19 05:00 White Blood Count 14.1 x10^3/uL (4.0-11.0) Red Blood Count 4.23 x10^6/uL (3.50-5.40) Hemoglobin 11.4 g/dL (12.0-15.5) Hematocrit 35.3 % (36.0-47.0) Mean Corpuscular Volume 84 fL (79-100) Mean Corpuscular Hemoglobin 27 pg (25-35) Mean Corpuscular Hemoglobin Concent 32 g/dL (31-37) Red Cell Distribution Width 14.9 % (11.5-14.5) Platelet Count 301 x10^3/uL (140-400) Neutrophils (%) (Auto) 85 % (31-73) Lymphocytes (%) (Auto) 5 % (24-48) Monocytes (%) (Auto) 10 % (0-9) Eosinophils (%) (Auto) 0 % (0-3) Basophils (%) (Auto) 0 % (0-3) Neutrophils # (Auto) 12.0 x10^3/uL (1.8-7.7) Lymphocytes # (Auto) 0.7 x10^3/uL (1.0-4.8) Monocytes # (Auto) 1.4 x10^3/uL (0.0-1.1) Eosinophils # (Auto) 0.0 x10^3/uL (0.0-0.7) Basophils # (Auto) 0.0 x10^3/uL (0.0-0.2) Sodium Level 132 mmol/L (136-145) Potassium Level 5.1 mmol/L (3.5-5.1) Chloride Level 98 mmol/L (98-107) Carbon Dioxide Level 24 mmol/L (21-32) Anion Gap 10 (6-14) Blood Urea Nitrogen 82 mg/dL (7-20) Creatinine 1.8 mg/dL (0.6-1.0) Estimated GFR (Cockcroft-Gault) 26.7 Glucose Level 106 mg/dL (70-99) Calcium Level 8.8 mg/dL (8.5-10.1) Assessment/Plan Assessment/Plan IMP SBO ARTUR DEHYDRATION URINARY RETENTION PLAN BOWEL REST HYDRATION PPN [facility] WILL FOLLOW DEBI GARCÍA MD Mar 29, 2019 16:12
[2019-03-29] MEDS: AMINO AC 3%/ELECTROLYTE/GLYCER 1,000 ML IV SCH (17:08)
[2019-03-29 19:00] VITALS: BP 109/70
--- NOTE | 2019-03-29 20:46 | PDOC ---
SURGICAL PROGRESS NOTE Subjective sleeping I did not wake her Vital Signs Vital Signs Date Time Temp Pulse Resp B/P (MAP) Pulse Ox O2 Delivery O2 Flow Rate FiO2 03/29/19 20:10 Nasal Cannula 4.0 03/29/19 19:00 97.8 75 18 109/70 (83) 96 97.8 I&O Intake and Output 03/29/19 07:00 Intake Total 0 ml Output Total 975 ml Balance -975 ml Intake Oral 0 ml Output Urine Total 725 ml Drainage Total 250 ml Lungs: Normal air movement Labs Laboratory Tests Test 03/29/19 05:00 White Blood Count 14.1 x10^3/uL (4.0-11.0) Red Blood Count 4.23 x10^6/uL (3.50-5.40) Hemoglobin 11.4 g/dL (12.0-15.5) Hematocrit 35.3 % (36.0-47.0) Mean Corpuscular Volume 84 fL (79-100) Mean Corpuscular Hemoglobin 27 pg (25-35) Mean Corpuscular Hemoglobin Concent 32 g/dL (31-37) Red Cell Distribution Width 14.9 % (11.5-14.5) Platelet Count 301 x10^3/uL (140-400) Neutrophils (%) (Auto) 85 % (31-73) Lymphocytes (%) (Auto) 5 % (24-48) Monocytes (%) (Auto) 10 % (0-9) Eosinophils (%) (Auto) 0 % (0-3) Basophils (%) (Auto) 0 % (0-3) Neutrophils # (Auto) 12.0 x10^3/uL (1.8-7.7) Lymphocytes # (Auto) 0.7 x10^3/uL (1.0-4.8) Monocytes # (Auto) 1.4 x10^3/uL (0.0-1.1) Eosinophils # (Auto) 0.0 x10^3/uL (0.0-0.7) Basophils # (Auto) 0.0 x10^3/uL (0.0-0.2) Sodium Level 132 mmol/L (136-145) Potassium Level 5.1 mmol/L (3.5-5.1) Chloride Level 98 mmol/L (98-107) Carbon Dioxide Level 24 mmol/L (21-32) Anion Gap 10 (6-14) Blood Urea Nitrogen 82 mg/dL (7-20) Creatinine 1.8 mg/dL (0.6-1.0) Estimated GFR (Cockcroft-Gault) 26.7 Glucose Level 106 mg/dL (70-99) Calcium Level 8.8 mg/dL (8.5-10.1) Laboratory Tests Test 03/29/19 05:00 White Blood Count 14.1 x10^3/uL (4.0-11.0) Red Blood Count 4.23 x10^6/uL (3.50-5.40) Hemoglobin 11.4 g/dL (12.0-15.5) Hematocrit 35.3 % (36.0-47.0) Mean Corpuscular Volume 84 fL (79-100) Mean Corpuscular Hemoglobin 27 pg (25-35) Mean Corpuscular Hemoglobin Concent 32 g/dL (31-37) Red Cell Distribution Width 14.9 % (11.5-14.5) Platelet Count 301 x10^3/uL (140-400) Neutrophils (%) (Auto) 85 % (31-73) Lymphocytes (%) (Auto) 5 % (24-48) Monocytes (%) (Auto) 10 % (0-9) Eosinophils (%) (Auto) 0 % (0-3) Basophils (%) (Auto) 0 % (0-3) Neutrophils # (Auto) 12.0 x10^3/uL (1.8-7.7) Lymphocytes # (Auto) 0.7 x10^3/uL (1.0-4.8) Monocytes # (Auto) 1.4 x10^3/uL (0.0-1.1) Eosinophils # (Auto) 0.0 x10^3/uL (0.0-0.7) Basophils # (Auto) 0.0 x10^3/uL (0.0-0.2) Sodium Level 132 mmol/L (136-145) Potassium Level 5.1 mmol/L (3.5-5.1) Chloride Level 98 mmol/L (98-107) Carbon Dioxide Level 24 mmol/L (21-32) Anion Gap 10 (6-14) Blood Urea Nitrogen 82 mg/dL (7-20) Creatinine 1.8 mg/dL (0.6-1.0) Estimated GFR (Cockcroft-Gault) 26.7 Glucose Level 106 mg/dL (70-99) Calcium Level 8.8 mg/dL (8.5-10.1) I have reviewed the following SBFT Problem List Problems Medical Problems: (1) Intractable abdominal pain Status: Acute (2) Intractable vomiting Status: Acute (3) Small bowel obstruction Status: Acute Assessment/Plan SBFT suggests persistent obstruction despite NG d/w her son will check plain film in the am in no improvement discuss exploration KOLTON OLIVARES MD Mar 29, 2019 20:46
[2019-03-29 23:00] VITALS: BP 107/45
[2019-03-30] VITALS (13 sets, daily range): BP systolic 84–119; BP diastolic 38–59
[2019-03-30] MEDS: MORPHINE SULFATE 4 MG/ML VIAL. IV PRN (00:11)
[2019-03-30] MEDS: AMINO AC 3%/ELECTROLYTE/GLYCER 1,000 ML IV SCH (03:29)
[2019-03-30] MEDS: fentaNYL PF VIAL 100 MCG/2 ML VIAL IV PRN ×3 (03:30→16:58)
[2019-03-30 04:49] LABS: BASO % 0 % (0-3); EOS % 0 % (0-3); HEMATOCRIT 33.7 % (36.0-47.0); HEMOGLOBIN 10.9 g/dL (12.0-15.5); LYMPH # 0.4 x10^3/uL (1.0-4.8); LYMPH % 4 % (24-48); MEAN CORPUSCULAR HEMOGLOBIN 27 pg (25-35); MEAN CORPUSCULAR HGB CONC 32 g/dL (31-37); MEAN CORPUSCULAR VOLUME 83 fL (79-100); MONO # 0.9 x10^3/uL (0.0-1.1); MONO % 7 % (0-9); NEUT # 10.6 x10^3/uL (1.8-7.7); NEUT % 89 % (31-73); PLATELET COUNT 390 x10^3/uL (140-400); RED BLOOD COUNT 4.04 x10^6/uL (3.50-5.40); RED CELL DISTRIBUTION WIDTH 15.4 % (11.5-14.5)
[2019-03-30 05:21] LABS: ALBUMIN/GLOBULIN RATIO 0.4 (1.0-1.7); CREATININE 2.7 mg/dL (0.6-1.0); GFR 16.7; MAGNESIUM 3.1 mg/dL (1.8-2.4); PHOSPHORUS 4.3 mg/dL (2.6-4.7); POTASSIUM 5.4 mmol/L (3.5-5.1); TOTAL PROTEIN 6.8 g/dL (6.4-8.2)
--- NOTE | 2019-03-30 08:08 | PDOC ---
SURGICAL PROGRESS NOTE Subjective less responsive this AM moans to palpation Vital Signs Vital Signs Date Time Temp Pulse Resp B/P (MAP) Pulse Ox O2 Delivery O2 Flow Rate FiO2 03/30/19 07:00 98.3 90 12 118/47 (70) 90 Nasal Cannula 4.0 98.3 I&O Intake and Output 03/30/19 07:00 Intake Total 0 ml Output Total 1625 ml Balance -1625 ml Intake Oral 0 ml Output Urine Total 375 ml Gastric Drainage Total 800 ml Drainage Total 450 ml PATIENT HAS A MOBLEY: Yes Abdomen: Other (some distention, TTP lower quadrants) Labs Laboratory Tests Test 03/29/19 05:00 03/30/19 04:23 White Blood Count 14.1 x10^3/uL (4.0-11.0) 12.0 x10^3/uL (4.0-11.0) Red Blood Count 4.23 x10^6/uL (3.50-5.40) 4.04 x10^6/uL (3.50-5.40) Hemoglobin 11.4 g/dL (12.0-15.5) 10.9 g/dL (12.0-15.5) Hematocrit 35.3 % (36.0-47.0) 33.7 % (36.0-47.0) Mean Corpuscular Volume 84 fL (79-100) 83 fL (79-100) Mean Corpuscular Hemoglobin 27 pg (25-35) 27 pg (25-35) Mean Corpuscular Hemoglobin Concent 32 g/dL (31-37) 32 g/dL (31-37) Red Cell Distribution Width 14.9 % (11.5-14.5) 15.4 % (11.5-14.5) Platelet Count 301 x10^3/uL (140-400) 390 x10^3/uL (140-400) Neutrophils (%) (Auto) 85 % (31-73) 89 % (31-73) Lymphocytes (%) (Auto) 5 % (24-48) 4 % (24-48) Monocytes (%) (Auto) 10 % (0-9) 7 % (0-9) Eosinophils (%) (Auto) 0 % (0-3) 0 % (0-3) Basophils (%) (Auto) 0 % (0-3) 0 % (0-3) Neutrophils # (Auto) 12.0 x10^3/uL (1.8-7.7) 10.6 x10^3/uL (1.8-7.7) Lymphocytes # (Auto) 0.7 x10^3/uL (1.0-4.8) 0.4 x10^3/uL (1.0-4.8) Monocytes # (Auto) 1.4 x10^3/uL (0.0-1.1) 0.9 x10^3/uL (0.0-1.1) Eosinophils # (Auto) 0.0 x10^3/uL (0.0-0.7) 0.0 x10^3/uL (0.0-0.7) Basophils # (Auto) 0.0 x10^3/uL (0.0-0.2) 0.0 x10^3/uL (0.0-0.2) Sodium Level 132 mmol/L (136-145) 130 mmol/L (136-145) Potassium Level 5.1 mmol/L (3.5-5.1) 5.4 mmol/L (3.5-5.1) Chloride Level 98 mmol/L (98-107) 96 mmol/L (98-107) Carbon Dioxide Level 24 mmol/L (21-32) 22 mmol/L (21-32) Anion Gap 10 (6-14) 12 (6-14) Blood Urea Nitrogen 82 mg/dL (7-20) 109 mg/dL (7-20) Creatinine 1.8 mg/dL (0.6-1.0) 2.7 mg/dL (0.6-1.0) Estimated GFR (Cockcroft-Gault) 26.7 16.7 Glucose Level 106 mg/dL (70-99) 114 mg/dL (70-99) Calcium Level 8.8 mg/dL (8.5-10.1) 9.0 mg/dL (8.5-10.1) BUN/Creatinine Ratio 40 (6-20) Lactic Acid Level 1.1 mmol/L (0.4-2.0) Phosphorus Level 4.3 mg/dL (2.6-4.7) Magnesium Level 3.1 mg/dL (1.8-2.4) Total Bilirubin 1.0 mg/dL (0.2-1.0) Aspartate Amino Transf (AST/SGOT) 30 U/L (15-37) Alanine Aminotransferase (ALT/SGPT) 22 U/L (14-59) Alkaline Phosphatase 89 U/L (46-116) Total Protein 6.8 g/dL (6.4-8.2) Albumin 2.0 g/dL (3.4-5.0) Albumin/Globulin Ratio 0.4 (1.0-1.7) Laboratory Tests Test 03/30/19 04:23 White Blood Count 12.0 x10^3/uL (4.0-11.0) Red Blood Count 4.04 x10^6/uL (3.50-5.40) Hemoglobin 10.9 g/dL (12.0-15.5) Hematocrit 33.7 % (36.0-47.0) Mean Corpuscular Volume 83 fL (79-100) Mean Corpuscular Hemoglobin 27 pg (25-35) Mean Corpuscular Hemoglobin Concent 32 g/dL (31-37) Red Cell Distribution Width 15.4 % (11.5-14.5) Platelet Count 390 x10^3/uL (140-400) Neutrophils (%) (Auto) 89 % (31-73) Lymphocytes (%) (Auto) 4 % (24-48) Monocytes (%) (Auto) 7 % (0-9) Eosinophils (%) (Auto) 0 % (0-3) Basophils (%) (Auto) 0 % (0-3) Neutrophils # (Auto) 10.6 x10^3/uL (1.8-7.7) Lymphocytes # (Auto) 0.4 x10^3/uL (1.0-4.8) Monocytes # (Auto) 0.9 x10^3/uL (0.0-1.1) Eosinophils # (Auto) 0.0 x10^3/uL (0.0-0.7) Basophils # (Auto) 0.0 x10^3/uL (0.0-0.2) Sodium Level 130 mmol/L (136-145) Potassium Level 5.4 mmol/L (3.5-5.1) Chloride Level 96 mmol/L (98-107) Carbon Dioxide Level 22 mmol/L (21-32) Anion Gap 12 (6-14) Blood Urea Nitrogen 109 mg/dL (7-20) Creatinine 2.7 mg/dL (0.6-1.0) Estimated GFR (Cockcroft-Gault) 16.7 BUN/Creatinine Ratio 40 (6-20) Glucose Level 114 mg/dL (70-99) Lactic Acid Level 1.1 mmol/L (0.4-2.0) Calcium Level 9.0 mg/dL (8.5-10.1) Phosphorus Level 4.3 mg/dL (2.6-4.7) Magnesium Level 3.1 mg/dL (1.8-2.4) Total Bilirubin 1.0 mg/dL (0.2-1.0) Aspartate Amino Transf (AST/SGOT) 30 U/L (15-37) Alanine Aminotransferase (ALT/SGPT) 22 U/L (14-59) Alkaline Phosphatase 89 U/L (46-116) Total Protein 6.8 g/dL (6.4-8.2) Albumin 2.0 g/dL (3.4-5.0) Albumin/Globulin Ratio 0.4 (1.0-1.7) Problem List Problems Medical Problems: (1) Intractable abdominal pain Status: Acute (2) Intractable vomiting Status: Acute (3) Small bowel obstruction Status: Acute Assessment/Plan SBO KUB was ordered, but will cancel and ask for CT abd/pelvis d/w her son Barrett on the phone will call him back with CT results KOLTON OLIVARES MD Mar 30, 2019 08:08
--- NOTE | 2019-03-30 08:31 | NUR ---
Shae RN called ICU and notified of patient's mental status change (Fentanyl was given around 0530 this morning), Creat. 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 RN called Dr. Mead-- stated he would order IVF. RN also called Dr. Rogers-- notified him of u/o, labs, VS, mental status change. Order received for 1/2 NS w/ 1 amp Bicarb at 75ml/hr. Dr. Romeo rounded on patient during this time-- CT abd ordered. VS stable, LA 1.1, Will continue to monitor.
--- NOTE | 2019-03-30 08:45 | PDOC ---
SUBJECTIVE Subjective Patient not making eye contact with examiner. Not answering questions. Mental status very much changed. Per RN several physicians have been alerted and she has bladder scanned patient to note residuals of 200 plus but is not sure if this is accurate. Is requesting if there is a better way to get residual of bladder. OBJECTIVE Objective Physical Exam: General appearance: Altered mental status. Moaning. Head: Normocephalic, without obvious abnormality. NG tube in place Eyes: conjunctivae/corneas clear. PERRL, EOM's intact. Fundi benign Lungs: Regular respirations, non labored breathing Abdomen: soft, tender, slightly distended. No masses, no organomegaly Pelvic:+ Moreira catheter in place draining clear yellow urine. Device appears to be in good working order. Vital Signs Vital Signs Date Time Temp Pulse Resp B/P (MAP) Pulse Ox O2 Delivery O2 Flow Rate FiO2 03/30/19 07:00 98.3 90 12 118/47 (70) 90 Nasal Cannula 4.0 98.3 03/30/19 06:11 Nasal Cannula 4.0 03/30/19 05:27 Nasal Cannula 4.0 03/30/19 04:40 Nasal Cannula 4.0 03/30/19 03:30 Nasal Cannula 4.0 03/30/19 03:00 97.9 91 18 116/50 (72) 91 Nasal Cannula 2.0 97.9 03/30/19 00:50 16 Nasal Cannula 4.0 03/30/19 00:11 18 Nasal Cannula 4.0 03/29/19 23:00 97.8 91 18 107/45 (65) 92 Nasal Cannula 2.0 97.8 03/29/19 20:10 Nasal Cannula 4.0 03/29/19 19:00 97.8 75 18 109/70 (83) 96 Nasal Cannula 2.0 97.8 03/29/19 17:50 90 Nasal Cannula 2.0 03/29/19 17:08 90 Nasal Cannula 2.0 03/29/19 15:54 90 Nasal Cannula 2.0 03/29/19 15:00 97.9 91 18 132/69 (90) 90 Nasal Cannula 2.0 97.9 03/29/19 14:58 Nasal Cannula 2.0 03/29/19 12:25 97 Nasal Cannula 2.0 03/29/19 09:45 Nasal Cannula 2.0 I & O Intake and Output 03/30/19 07:00 Intake Total 0 ml Output Total 1625 ml Balance -1625 ml Intake Oral 0 ml Output Urine Total 375 ml Gastric Drainage Total 800 ml Drainage Total 450 ml PHYSICAL EXAM Physical Exam Physical Exam: General appearance: Altered mental status. Moaning. Head: Normocephalic, without obvious abnormality. NG tube in place Eyes: conjunctivae/corneas clear. PERRL, EOM's intact. Fundi benign Lungs: Regular respirations, non labored breathing Abdomen: soft, tender, slightly distended. No masses, no organomegaly Pelvic:+ Moreira catheter in place draining clear yellow urine. Device appears to be in good working order. ASSESSMENT/PLAN Assessment/Plan A CT abd/pelvis has been ordered by medical team. Bilateral Renal with bladder volume ordered stat to ensure no significant bladder residual. Nursing to continue to maintain Moreira catheter. No plans for removal until b naliniel issues are resolved. Discussed above with attending RN. COMMENT Lab Laboratory Tests Test 03/30/19 04:23 White Blood Count 12.0 x10^3/uL (4.0-11.0) Red Blood Count 4.04 x10^6/uL (3.50-5.40) Hemoglobin 10.9 g/dL (12.0-15.5) Hematocrit 33.7 % (36.0-47.0) Mean Corpuscular Volume 83 fL (79-100) Mean Corpuscular Hemoglobin 27 pg (25-35) Mean Corpuscular Hemoglobin Concent 32 g/dL (31-37) Red Cell Distribution Width 15.4 % (11.5-14.5) Platelet Count 390 x10^3/uL (140-400) Neutrophils (%) (Auto) 89 % (31-73) Lymphocytes (%) (Auto) 4 % (24-48) Monocytes (%) (Auto) 7 % (0-9) Eosinophils (%) (Auto) 0 % (0-3) Basophils (%) (Auto) 0 % (0-3) Neutrophils # (Auto) 10.6 x10^3/uL (1.8-7.7) Lymphocytes # (Auto) 0.4 x10^3/uL (1.0-4.8) Monocytes # (Auto) 0.9 x10^3/uL (0.0-1.1) Eosinophils # (Auto) 0.0 x10^3/uL (0.0-0.7) Basophils # (Auto) 0.0 x10^3/uL (0.0-0.2) Sodium Level 130 mmol/L (136-145) Potassium Level 5.4 mmol/L (3.5-5.1) Chloride Level 96 mmol/L (98-107) Carbon Dioxide Level 22 mmol/L (21-32) Anion Gap 12 (6-14) Blood Urea Nitrogen 109 mg/dL (7-20) Creatinine 2.7 mg/dL (0.6-1.0) Estimated GFR (Cockcroft-Gault) 16.7 BUN/Creatinine Ratio 40 (6-20) Glucose Level 114 mg/dL (70-99) Lactic Acid Level 1.1 mmol/L (0.4-2.0) Calcium Level 9.0 mg/dL (8.5-10.1) Phosphorus Level 4.3 mg/dL (2.6-4.7) Magnesium Level 3.1 mg/dL (1.8-2.4) Total Bilirubin 1.0 mg/dL (0.2-1.0) Aspartate Amino Transf (AST/SGOT) 30 U/L (15-37) Alanine Aminotransferase (ALT/SGPT) 22 U/L (14-59) Alkaline Phosphatase 89 U/L (46-116) Total Protein 6.8 g/dL (6.4-8.2) Albumin 2.0 g/dL (3.4-5.0) Albumin/Globulin Ratio 0.4 (1.0-1.7) Nutrition Consultation Dietary Evaluation: Recommendations by RD: PPN/TPN Comments: continue PPN until able to advance to a diet as tolerated Expected Outcomes/Goals: diet advancement/ tolerance to meet > 75% est nutr needs via po intake Malnutrition Findings: Body Fat Depletion (Non Severe: Mod to Severe Weight Status: Underweight PAUL HERNANDEZ DOCTOR OF RADIOLOGY Mar 30, 2019 08:45
[2019-03-30] MEDS ORDERED: SODIUM BICARBONATE VIAL 50 MEQ in IV 1/2 NORMAL SALINE 1,000 ML IV SCH (09:00)
[2019-03-30] MEDS: PARoxetine 20 MG TABLET PO SCH (09:00)
--- NOTE | 2019-03-30 09:11 | RAD ---
EXAM: Small bowel follow-through DATE: 03/29/2019 6:00 AM INDICATION: Bowel obstruction COMPARISON: No Prior Technique: Water-soluble contrast was administered to the patient has a questionable radiographs were obtained of the abdomen and pelvis. FINDINGS: Contrast material was administered to the patient via NG tube. There is a moderate-sized hiatal hernia. Contrast was seen slowly progressing through the small bowel loops to the small bowel loops in the right lower quadrant. Despite imaging for 6 1/2 hours, the contrast within the small bowel loops would not progress past this point. IMPRESSION: 1. Dilated loops of small bowel with contrast progressing to the level of the right lower quadrant without extension into the colon by the 6 hours and 30 minute abilio. This is suspicious for bowel obstruction and can be further assessed by CT. Electronically signed by: Bakari Cason MD (03/30/2019 9:08 AM) [facility]
[2019-03-30] MEDS: PANTOPRAZOLE IV PUSH 40 MG VIAL. IVP SCH (09:17)
--- NOTE | 2019-03-30 09:41 | RAD ---
Examination: CT of the abdomen pelvis with oral contrast HISTORY: History of distended abdomen COMPARISON: None available TECHNIQUE: Axial CT images of the abdomen pelvis were performed with oral contrast. Coronal and sagittal reformats are performed Exposure: One or more of the following individualized dose reduction techniques were utilized for this examination: 1. Automated exposure control 2. Adjustment of the mA and/or kV according to patient size 3. Use of iterative reconstruction technique FINDINGS: Right lower lobe lung consolidation with air bronchograms identified with patchy scattered airspace opacities identified in the left lingula, left lower lobe of the lung and in the partially visualized right middle lobe of the lung likely pneumonia or atelectasis. Trace bilateral pleural effusions. No evidence of free air identified in the abdomen. The evaluation of the solid organs is limited due to lack of IV contrast. The evaluation of bowel is limited due to lack of oral contrast. The visualized noncontrasted liver spleen, adrenals grossly appears unremarkable. The gallbladder is moderately distended. Feeding tube is identified in the distal stomach. The stomach is minimally distended. Multiple distended and mildly dilated small bowel loops identified in the abdomen likely small bowel obstruction. Possible transition point on series 2 image #59 the right lower quadrant of the abdomen. Minimal amount of contrast extends into the colon. There is mild fat stranding identified in the small bowel loops in the right lower quadrant probably enteritis. Moderate free fluid identified in the pelvis measuring Hounsfield units of 35. Multiple sigmoid colon diverticulosis. Severe aortic atherosclerosis. Minimal fat stranding identified about the bilateral kidneys. No obvious hydronephrosis. Severe compression change of T11 vertebral body similar to prior exam. Moderate degenerative changes thoracolumbar spine. IMPRESSION: 1. Multiple dilated small bowel loops identified in the abdomen with likely transition point in the right lower quadrant abdomen probably small bowel obstruction, partial or early small bowel obstruction. Some of the oral contrast reaches the colon. 2. Fat stranding identified in the small bowel about the small bowel loops in the right lower quadrant probably enteritis. 3. Moderate amount of fluid identified in the pelvis. 4. Right lower lobe lung consolidation changes with diffuse patchy airspace opacities identified in the bibasilar lungs and in the left lingula and right middle lobe of the lung likely pneumonia or atelectasis. 5. Moderately distended gallbladder Electronically signed by: Kevon Wade MD (03/30/2019 9:38 AM) [facility]
--- NOTE | 2019-03-30 09:54 | NUR ---
At 0720 this morning I went in to assess patient and she was not responding to verbal stimuli. I performed at sternal rub and she would just moan; I could not get her to talk to me. I checked pupillary response to light and pupils are very small and not reactive. Vital signs were stable so I called charge nurse from ICU to let her know of my findings. I notified Dr. Mead as well. She did not have much urine output so I performed a bladder scan as well to determine if the keller catheter was somehow malpositioned. Bladder scan showed 220 ml in bladder. Keller was removed and replaced. Dr. Romeo came into see patient and ordered a stat CT abdomen/pelvis without contrast. Continuing to monitor patient for changes.
--- NOTE | 2019-03-30 10:48 | PDOC ---
Objective: Objective: Reviewed chart and d/w nurse - worse today, CT done and plans to transfer to ICU. Vital Signs: Vital Signs Date Time Temp Pulse Resp B/P (MAP) Pulse Ox O2 Delivery O2 Flow Rate FiO2 03/30/19 07:20 Nasal Cannula 2.0 03/30/19 07:00 98.3 90 12 118/47 (70) 90 98.3 Labs: Laboratory Tests Test 03/30/19 04:23 White Blood Count 12.0 x10^3/uL Red Blood Count 4.04 x10^6/uL Hemoglobin 10.9 g/dL Hematocrit 33.7 % Mean Corpuscular Volume 83 fL Mean Corpuscular Hemoglobin 27 pg Mean Corpuscular Hemoglobin Concent 32 g/dL Red Cell Distribution Width 15.4 % Platelet Count 390 x10^3/uL Neutrophils (%) (Auto) 89 % Lymphocytes (%) (Auto) 4 % Monocytes (%) (Auto) 7 % Eosinophils (%) (Auto) 0 % Basophils (%) (Auto) 0 % Neutrophils # (Auto) 10.6 x10^3/uL Lymphocytes # (Auto) 0.4 x10^3/uL Monocytes # (Auto) 0.9 x10^3/uL Eosinophils # (Auto) 0.0 x10^3/uL Basophils # (Auto) 0.0 x10^3/uL Sodium Level 130 mmol/L Potassium Level 5.4 mmol/L Chloride Level 96 mmol/L Carbon Dioxide Level 22 mmol/L Anion Gap 12 Blood Urea Nitrogen 109 mg/dL Creatinine 2.7 mg/dL Estimated GFR (Cockcroft-Gault) 16.7 BUN/Creatinine Ratio 40 Glucose Level 114 mg/dL Lactic Acid Level 1.1 mmol/L Calcium Level 9.0 mg/dL Phosphorus Level 4.3 mg/dL Magnesium Level 3.1 mg/dL Total Bilirubin 1.0 mg/dL Aspartate Amino Transf (AST/SGOT) 30 U/L Alanine Aminotransferase (ALT/SGPT) 22 U/L Alkaline Phosphatase 89 U/L Total Protein 6.8 g/dL Albumin 2.0 g/dL Albumin/Globulin Ratio 0.4 Imaging: CT A/P IMPRESSION: 1. Multiple dilated small bowel loops identified in the abdomen with likely transition point in the right lower quadrant abdomen probably small bowel obst ruction, partial or early small bowel obstruction. Some of the oral contrast reaches the colon. 2. Fat stranding identified in the small bowel about the small bowel loops in the right lower quadrant probably enteritis. 3. Moderate amount of fluid identified in the pelvis. 4. Right lower lobe lung consolidation changes with diffuse patchy airspace opacities identified in the bibasilar lungs and in the left lingula and right middle lobe of the lung likely pneumonia or atelectasis. 5. Moderately distended gallbladder. SBS IMPRESSION: 1. Dilated loops of small bowel with contrast progressing to the level of the right lower quadrant without extension into the colon by the 6 hours and 30 minute abilio. This is suspicious for bowel obstruction and can be further as sessed by CT. PE: GEN: ill LUNGS: NGT ABD: some firmness NEURO/PSYCH: moaning A/P: SBO Leukocytosis - better ARTUR - Cr rising -- Imaging and plans as above. BETTY JORGE Mar 30, 2019 10:48
[2019-03-30] MEDS ORDERED: PIP/TAZO PER PHARMACY MC PRN (11:30)
--- NOTE | 2019-03-30 12:03 | RAD ---
Examination: Ultrasound kidneys HISTORY: History of urinary retention COMPARISON: None available. Findings/ Impression: The right kidney measures 9.9 x 4.9 x 4.0 cm. The left kidney measures 10.8 x 5.12 5.4 cm. Prevoid urinary bladder volume is 98 cc. Postvoid urinary bladder volume was not obtained. Electronically signed by: Kevon Wade MD (03/30/2019 12:00 PM) [id number]
--- NOTE | 2019-03-30 12:07 | PDOC ---
Renal-Progress Notes Subjective Notes Notes CONFUSED VERY MUCH History of Present Illness Hx of present illness WORSE, MOANING AND CONFUSED Vitals Vitals Vital Signs Date Time Temp Pulse Resp B/P (MAP) Pulse Ox O2 Delivery O2 Flow Rate FiO2 03/30/19 11:00 97.4 99 12 108/41 (63) 93 Nasal Cannula 3.5 97.4 Weight Weight [ ] I.O. Intake and Output Intake and Output 03/30/19 07:00 Intake Total 0 ml Output Total 1625 ml Balance -1625 ml Intake Oral 0 ml Output Urine Total 375 ml Gastric Drainage Total 800 ml Drainage Total 450 ml Labs Labs Laboratory Tests Test 03/30/19 04:23 White Blood Count 12.0 x10^3/uL (4.0-11.0) Red Blood Count 4.04 x10^6/uL (3.50-5.40) Hemoglobin 10.9 g/dL (12.0-15.5) Hematocrit 33.7 % (36.0-47.0) Mean Corpuscular Volume 83 fL (79-100) Mean Corpuscular Hemoglobin 27 pg (25-35) Mean Corpuscular Hemoglobin Concent 32 g/dL (31-37) Red Cell Distribution Width 15.4 % (11.5-14.5) Platelet Count 390 x10^3/uL (140-400) Neutrophils (%) (Auto) 89 % (31-73) Lymphocytes (%) (Auto) 4 % (24-48) Monocytes (%) (Auto) 7 % (0-9) Eosinophils (%) (Auto) 0 % (0-3) Basophils (%) (Auto) 0 % (0-3) Neutrophils # (Auto) 10.6 x10^3/uL (1.8-7.7) Lymphocytes # (Auto) 0.4 x10^3/uL (1.0-4.8) Monocytes # (Auto) 0.9 x10^3/uL (0.0-1.1) Eosinophils # (Auto) 0.0 x10^3/uL (0.0-0.7) Basophils # (Auto) 0.0 x10^3/uL (0.0-0.2) Sodium Level 130 mmol/L (136-145) Potassium Level 5.4 mmol/L (3.5-5.1) Chloride Level 96 mmol/L (98-107) Carbon Dioxide Level 22 mmol/L (21-32) Anion Gap 12 (6-14) Blood Urea Nitrogen 109 mg/dL (7-20) Creatinine 2.7 mg/dL (0.6-1.0) Estimated GFR (Cockcroft-Gault) 16.7 BUN/Creatinine Ratio 40 (6-20) Glucose Level 114 mg/dL (70-99) Lactic Acid Level 1.1 mmol/L (0.4-2.0) Calcium Level 9.0 mg/dL (8.5-10.1) Phosphorus Level 4.3 mg/dL (2.6-4.7) Magnesium Level 3.1 mg/dL (1.8-2.4) Total Bilirubin 1.0 mg/dL (0.2-1.0) Aspartate Amino Transf (AST/SGOT) 30 U/L (15-37) Alanine Aminotransferase (ALT/SGPT) 22 U/L (14-59) Alkaline Phosphatase 89 U/L (46-116) Total Protein 6.8 g/dL (6.4-8.2) Albumin 2.0 g/dL (3.4-5.0) Albumin/Globulin Ratio 0.4 (1.0-1.7) Micro Micro Microbiology 03/26/19 Urine Culture - Final, Complete 03/26/19 Urine Culture Result 1 (GUILLERMO) - Final, Complete Assessment Assessment IMP ENCEPHALOPATHY-PROB IATROGENIC SBO-HAS NGT ARTUR-WORSE WITH CR UP TO 2.7-OLIGURIC OVER NIGHT DEHYDRATION URINARY RETENTION PLAN PPN BOWEL REST HYDRATION TO CONTINUE FOR NOW MAINTAIN MOBLEY WORSENING ARTUR DUE TO CONTRAST EXPOSURE UPDATED DAUGHTER IN LAW AT BEDSIDE WILL FOLLOW DEBI GARCÍA MD Mar 30, 2019 12:07
[2019-03-30] MEDS: PIPERACILLIN/TAZOBACTAM 2.25 GM in IV NORMAL SALINE 50ML 50 ML IV SCH ×2 (12:55→23:01)
--- NOTE | 2019-03-30 13:08 | PDOC ---
[employer] PROGRESS NOTE Chief Complaint Chief Complaint Intractable abd pain Nausea/Vomiting SOB Hx breast cancer and lung cancer HTN Hyperlipidemia Depression Osteoporosis Hx smoker and heavy drinker Appendectomy Tonsillectomy Hysterectomy Hernia repair History of Present Illness History of Present Illness 03/30/19 Pt seen/examined at bedside Pt moans in what seems to be pain DW Dr. Romeo Discussed extensively with son and [id number] Reviewed chart with family Discussed extensively with RN Nurse states no pain meds have been given today as possible iatrogenic cause of AMS ALECIA to RAN[facility] Moreira to jasond Nurse states there was little urine output overnight Pneumonia as incidental finding on CT, family states she was at the [employer] 1wk ago and there were no issues present at that time Vitals/I&O Vitals/I&O: Vital Signs Date Time Temp Pulse Resp B/P (MAP) Pulse Ox O2 Delivery O2 Flow Rate FiO2 03/30/19 11:00 97.4 99 12 108/41 (63) 93 Nasal Cannula 3.5 97.4 I & O 03/29/19 03/29/19 03/30/19 15:00 23:00 07:00 Intake Total 0 ml 0 ml Output Total 350 ml 800 ml 475 ml Balance -350 ml -800 ml -475 ml Physical Exam General: mild distress Heart: Regular rate, Normal S1 Lungs: Wheezing (on Left), Crackles Abdomen: Soft, Other (some distention, TTP lower quadrants) Extremities: No clubbing, No cyanosis Skin: No rashes, No significant lesion Labs Labs: Laboratory Tests Test 03/30/19 04:23 White Blood Count 12.0 x10^3/uL (4.0-11.0) Red Blood Count 4.04 x10^6/uL (3.50-5.40) Hemoglobin 10.9 g/dL (12.0-15.5) Hematocrit 33.7 % (36.0-47.0) Mean Corpuscular Volume 83 fL (79-100) Mean Corpuscular Hemoglobin 27 pg (25-35) Mean Corpuscular Hemoglobin Concent 32 g/dL (31-37) Red Cell Distribution Width 15.4 % (11.5-14.5) Platelet Count 390 x10^3/uL (140-400) Neutrophils (%) (Auto) 89 % (31-73) Lymphocytes (%) (Auto) 4 % (24-48) Monocytes (%) (Auto) 7 % (0-9) Eosinophils (%) (Auto) 0 % (0-3) Basophils (%) (Auto) 0 % (0-3) Neutrophils # (Auto) 10.6 x10^3/uL (1.8-7.7) Lymphocytes # (Auto) 0.4 x10^3/uL (1.0-4.8) Monocytes # (Auto) 0.9 x10^3/uL (0.0-1.1) Eosinophils # (Auto) 0.0 x10^3/uL (0.0-0.7) Basophils # (Auto) 0.0 x10^3/uL (0.0-0.2) Sodium Level 130 mmol/L (136-145) Potassium Level 5.4 mmol/L (3.5-5.1) Chloride Level 96 mmol/L (98-107) Carbon Dioxide Level 22 mmol/L (21-32) Anion Gap 12 (6-14) Blood Urea Nitrogen 109 mg/dL (7-20) Creatinine 2.7 mg/dL (0.6-1.0) Estimated GFR (Cockcroft-Gault) 16.7 BUN/Creatinine Ratio 40 (6-20) Glucose Level 114 mg/dL (70-99) Lactic Acid Level 1.1 mmol/L (0.4-2.0) Calcium Level 9.0 mg/dL (8.5-10.1) Phosphorus Level 4.3 mg/dL (2.6-4.7) Magnesium Level 3.1 mg/dL (1.8-2.4) Total Bilirubin 1.0 mg/dL (0.2-1.0) Aspartate Amino Transf (AST/SGOT) 30 U/L (15-37) Alanine Aminotransferase (ALT/SGPT) 22 U/L (14-59) Alkaline Phosphatase 89 U/L (46-116) Total Protein 6.8 g/dL (6.4-8.2) Albumin 2.0 g/dL (3.4-5.0) Albumin/Globulin Ratio 0.4 (1.0-1.7) Review of Systems Review of Systems: Pt moans due to probable pain AMS Assessment and Plan Assessmemt and Plan Problems Medical Problems: (1) Intractable abdominal pain Status: Acute (2) Intractable vomiting Status: Acute (3) Small bowel obstruction Status: Acute Assessment Intractable abd pain Nausea/Vomiting SOB Hx breast cancer and lung cancer HTN Hyperlipidemia Depression Osteoporosis Hx smoker and heavy drinker Appendectomy Tonsillectomy Hysterectomy Hernia repair Plan IV fluids Possible temporary HD, if IV fluids do not help today Appreciate input of Dr. Rogers Consult pulm Renal U/S Antibiotics for pneumonia (Zosyn) Home meds DVT prophylaxis Full code Prognosis guarded Total time 32 minutes Comment Review of Relevant I have reviewed the following items abilio (where applicable) has been applied. Medications: Current Medications Medications (Trade) Dose Ordered Sig/Erica Route PRN Reason Start Time Stop Time Status Last Admin Dose Admin Ondansetron HCl (Zofran) 4 mg PRN Q8HRS PRN IV NAUSEA/VOMITING 03/29/19 15:15 03/29/19 15:08 Fentanyl Citrate (Fentanyl 2ml Vial) 50 mcg PRN Q2HR PRN IV SEVERE PAIN 7-10 03/30/19 01:30 03/30/19 05:27 Sodium Bicarbonate 50 meq/Sodium Chloride 1,050 ml @ 75 mls/hr Q14H IV 03/30/19 09:00 03/30/19 09:17 MIMI SALDAÑA III DO Mar 30, 2019 13:08
[2019-03-30] MEDS ORDERED: FUROSEMIDE 40 MG/4 ML VIAL. IVP ONE ×2 (13:30→16:00)
--- NOTE | 2019-03-30 14:15 | NUR ---
I continually monitored patient throughout the morning; having been in contact with ICU web content producer and all physicians on the case. Patients oxygen saturation began to drop after 1100 and was requiring a greater amount of oxygen to keep sats >90. Patient's pupils became reactive about mid-morning and patient was reacting and saying a few words, but mainly just moaning out in pain. I called down to ICU when patient began requiring more oxygen for fear she was becoming acidotic. ABG drawn - okay, but coarse lung sounds and intermittent need for oral suction. Decision made to transfer patient to ICU for closer monitoring and treatment. Bedside report given in ICU to Maki KENDRICK.
[2019-03-30 14:30] LABS: BASE EXCESS ABG -7 mmol/L (-3-3); HCO3 ABG 20 mmol/L (21-28); PCO2 ABG 46 mmHg (35-46); PO2 ABG 72 mmHg (65-108); SAT O2 ABG 94 % (92-99)
--- NOTE | 2019-03-30 15:20 | PDOC ---
PULMONARY PROGRESS NOTES Vitals Vital Signs Date Time Temp Pulse Resp B/P (MAP) Pulse Ox O2 Delivery O2 Flow Rate FiO2 03/30/19 14:00 97.7 96 16 119/59 (79) 90 Venturi Mask 97.7 03/30/19 11:00 3.5 Lungs: Wheezing (on Left), Crackles Labs Laboratory Tests Test 03/29/19 05:00 03/30/19 04:23 03/30/19 13:13 White Blood Count 14.1 x10^3/uL (4.0-11.0) 12.0 x10^3/uL (4.0-11.0) Red Blood Count 4.23 x10^6/uL (3.50-5.40) 4.04 x10^6/uL (3.50-5.40) Hemoglobin 11.4 g/dL (12.0-15.5) 10.9 g/dL (12.0-15.5) Hematocrit 35.3 % (36.0-47.0) 33.7 % (36.0-47.0) Mean Corpuscular Volume 84 fL (79-100) 83 fL (79-100) Mean Corpuscular Hemoglobin 27 pg (25-35) 27 pg (25-35) Mean Corpuscular Hemoglobin Concent 32 g/dL (31-37) 32 g/dL (31-37) Red Cell Distribution Width 14.9 % (11.5-14.5) 15.4 % (11.5-14.5) Platelet Count 301 x10^3/uL (140-400) 390 x10^3/uL (140-400) Neutrophils (%) (Auto) 85 % (31-73) 89 % (31-73) Lymphocytes (%) (Auto) 5 % (24-48) 4 % (24-48) Monocytes (%) (Auto) 10 % (0-9) 7 % (0-9) Eosinophils (%) (Auto) 0 % (0-3) 0 % (0-3) Basophils (%) (Auto) 0 % (0-3) 0 % (0-3) Neutrophils # (Auto) 12.0 x10^3/uL (1.8-7.7) 10.6 x10^3/uL (1.8-7.7) Lymphocytes # (Auto) 0.7 x10^3/uL (1.0-4.8) 0.4 x10^3/uL (1.0-4.8) Monocytes # (Auto) 1.4 x10^3/uL (0.0-1.1) 0.9 x10^3/uL (0.0-1.1) Eosinophils # (Auto) 0.0 x10^3/uL (0.0-0.7) 0.0 x10^3/uL (0.0-0.7) Basophils # (Auto) 0.0 x10^3/uL (0.0-0.2) 0.0 x10^3/uL (0.0-0.2) Sodium Level 132 mmol/L (136-145) 130 mmol/L (136-145) Potassium Level 5.1 mmol/L (3.5-5.1) 5.4 mmol/L (3.5-5.1) Chloride Level 98 mmol/L (98-107) 96 mmol/L (98-107) Carbon Dioxide Level 24 mmol/L (21-32) 22 mmol/L (21-32) Anion Gap 10 (6-14) 12 (6-14) Blood Urea Nitrogen 82 mg/dL (7-20) 109 mg/dL (7-20) Creatinine 1.8 mg/dL (0.6-1.0) 2.7 mg/dL (0.6-1.0) Estimated GFR (Cockcroft-Gault) 26.7 16.7 Glucose Level 106 mg/dL (70-99) 114 mg/dL (70-99) Calcium Level 8.8 mg/dL (8.5-10.1) 9.0 mg/dL (8.5-10.1) BUN/Creatinine Ratio 40 (6-20) Lactic Acid Level 1.1 mmol/L (0.4-2.0) Phosphorus Level 4.3 mg/dL (2.6-4.7) Magnesium Level 3.1 mg/dL (1.8-2.4) Total Bilirubin 1.0 mg/dL (0.2-1.0) Aspartate Amino Transf (AST/SGOT) 30 U/L (15-37) Alanine Aminotransferase (ALT/SGPT) 22 U/L (14-59) Alkaline Phosphatase 89 U/L (46-116) Total Protein 6.8 g/dL (6.4-8.2) Albumin 2.0 g/dL (3.4-5.0) Albumin/Globulin Ratio 0.4 (1.0-1.7) O2 Saturation 94 % (92-99) Arterial Blood pH 7.25 (7.35-7.45) Arterial Blood pCO2 at Patient Temp 46 mmHg (35-46) Arterial Blood pO2 at Patient Temp 72 mmHg (65-108) Arterial Blood HCO3 20 mmol/L (21-28) Arterial Blood Base Excess -7 mmol/L (-3-3) FiO2 44% Laboratory Tests Test 03/30/19 04:23 03/30/19 13:13 White Blood Count 12.0 x10^3/uL (4.0-11.0) Red Blood Count 4.04 x10^6/uL (3.50-5.40) Hemoglobin 10.9 g/dL (12.0-15.5) Hematocrit 33.7 % (36.0-47.0) Mean Corpuscular Volume 83 fL (79-100) Mean Corpuscular Hemoglobin 27 pg (25-35) Mean Corpuscular Hemoglobin Concent 32 g/dL (31-37) Red Cell Distribution Width 15.4 % (11.5-14.5) Platelet Count 390 x10^3/uL (140-400) Neutrophils (%) (Auto) 89 % (31-73) Lymphocytes (%) (Auto) 4 % (24-48) Monocytes (%) (Auto) 7 % (0-9) Eosinophils (%) (Auto) 0 % (0-3) Basophils (%) (Auto) 0 % (0-3) Neutrophils # (Auto) 10.6 x10^3/uL (1.8-7.7) Lymphocytes # (Auto) 0.4 x10^3/uL (1.0-4.8) Monocytes # (Auto) 0.9 x10^3/uL (0.0-1.1) Eosinophils # (Auto) 0.0 x10^3/uL (0.0-0.7) Basophils # (Auto) 0.0 x10^3/uL (0.0-0.2) Sodium Level 130 mmol/L (136-145) Potassium Level 5.4 mmol/L (3.5-5.1) Chloride Level 96 mmol/L (98-107) Carbon Dioxide Level 22 mmol/L (21-32) Anion Gap 12 (6-14) Blood Urea Nitrogen 109 mg/dL (7-20) Creatinine 2.7 mg/dL (0.6-1.0) Estimated GFR (Cockcroft-Gault) 16.7 BUN/Creatinine Ratio 40 (6-20) Glucose Level 114 mg/dL (70-99) Lactic Acid Level 1.1 mmol/L (0.4-2.0) Calcium Level 9.0 mg/dL (8.5-10.1) Phosphorus Level 4.3 mg/dL (2.6-4.7) Magnesium Level 3.1 mg/dL (1.8-2.4) Total Bilirubin 1.0 mg/dL (0.2-1.0) Aspartate Amino Transf (AST/SGOT) 30 U/L (15-37) Alanine Aminotransferase (ALT/SGPT) 22 U/L (14-59) Alkaline Phosphatase 89 U/L (46-116) Total Protein 6.8 g/dL (6.4-8.2) Albumin 2.0 g/dL (3.4-5.0) Albumin/Globulin Ratio 0.4 (1.0-1.7) O2 Saturation 94 % (92-99) Arterial Blood pH 7.25 (7.35-7.45) Arterial Blood pCO2 at Patient Temp 46 mmHg (35-46) Arterial Blood pO2 at Patient Temp 72 mmHg (65-108) Arterial Blood HCO3 20 mmol/L (21-28) Arterial Blood Base Excess -7 mmol/L (-3-3) FiO2 44% Medications Active Scripts Medications Dose Route/Sig Max Daily Dose Days Date Category Prolia (Denosumab) 60 Mg/1 Ml Disp.syrin 60 Mg SQ Q 6 MONTHS 12/08/17 Reported Aspir 81 (Aspirin) 81 Mg Tablet.dr 81 Mg PO DAILY 02/06/16 Reported Glucosamine & Chondroitin Cap (Glucosa Ca 2KCL/Chondroitin Ca) 1 Each Capsule 1 Each PO BID 01/20/16 Reported Calcium 600 + Vit D 200 Tablet (Calcium Carbonate/Vitamin D3) 1 Each Tablet 1 Each PO BID 01/20/16 Reported Centrum Silver Tablet (Multivits-Min/Fa/Lycopene/Lut) 1 Each Tablet 1 Each PO DAILY 01/20/16 Reported Tramadol Hcl 50 Mg Tablet 50 Mg PO Q6H PRN 01/20/16 Reported Lipitor (Atorvastatin Calcium) 40 Mg Tablet 40 Mg PO HS 01/20/16 Reported Lisinopril 20 Mg Tablet 20 Mg PO HS 01/20/16 Reported Paxil (Paroxetine Hcl) 20 Mg Tablet 20 Mg PO DAILY 01/20/16 Reported Impression . FULL NOTE DICTATED SEE [facility] ACUTE RESP FAILURE/ARTUR/PNEUMONIA SEPSIS SBO JUNIOR ABARCA MD Mar 30, 2019 15:20
[2019-03-30] MEDS ORDERED: ALBUMIN HUMAN 25% 50 ML IV ONE (16:00)
--- NOTE | 2019-03-30 16:55 | RAD ---
CHEST AP ONLY Clinical indications: Shortness of breath. Possible aspiration. COMPARISON: March 27, 2019. Findings: There is an increase in right lung base consolidative infiltrate and right perihilar midlung zone infiltrate and left infrahilar lung infiltrate. Small right-sided pleural effusion is still evident. No pneumothorax is seen. Heart size and mediastinum are stable. NG tube remains in place. IMPRESSION: Increase in bilateral lung infiltrates which could be due to worsening pneumonia or aspiration pneumonitis. Electronically signed by: Daniel Lowe MD (03/30/2019 4:52 PM) [place] [id number]
--- NOTE | 2019-03-30 23:19 | CONS ---
DATE OF CONSULTATION: 03/30/2019 ATTENDING PHYSICIAN: Carlota Mead MD REASON FOR CONSULTATION: The patient seen in pulmonary consultation at the request of Dr. Roblero for increasing shortness of air, abnormal CT abdomen. HISTORY OF PRESENT ILLNESS: The patient is an 88-year-old female admitted with acute abdominal pain, nausea and vomiting. She also has some mental status changes. She apparently fell on the day of admission. Pain was severe. She was admitted. A CT abdomen was obtained, which showed some small bowel obstruction. There was no evidence of aortic dissection. At the time of admission, there was small right pleural effusion. There was a mass-like area seen involving the right lower lobe. The patient was admitted and treated for the above. She underwent a repeat CT abdomen and pelvis dated 03/30, which showed multiple dilated small bowel loops compatible with partial early small bowel obstruction. There was also moderate amount of fluid in the pelvis. There was a right lower lobe consolidation, diffuse patchy airspace opacities in the basal segments of the lungs and in the left lingula. There was right middle lobe atelectasis or infiltrate. I was asked to see her in consultation. I was unable to obtain much history from the patient herself. She was encephalopathic. PAST MEDICAL HISTORY: Has a prior history of breast cancer, received chemo; lung cancer, received radiation; hypertension; hyperlipidemia; depression; osteoarthritis; compression fractures. PAST SURGICAL HISTORY: Status post lumpectomy, lung biopsy, appendectomy, tonsillectomy, hysterectomy, hernia repair. FAMILY HISTORY: There was a significant history of cancer. SOCIAL HISTORY: She smokes less than 1 pack of cigarettes a day. ALLERGIES: No known drug allergies. REVIEW OF SYSTEMS: Unobtainable secondary to the patient's condition. MEDICATIONS: List was reviewed. PHYSICAL EXAMINATION: VITAL SIGNS: The patient had elevated respiratory rate. She was encephalopathic, does not follow any commands. HEENT: Eyes, the sclerae were nonicteric. NECK: Jugular venous distention was not elevated. No lymphadenopathy. CHEST: Full expansion. LUNGS: Scattered rhonchi, no wheezes. CARDIOVASCULAR: Regular rate and rhythm with S1, S2, no S3. ABDOMEN: She was tender to touch. She had diffuse tenderness to touch. EXTREMITIES: No clubbing, cyanosis or pitting edema. NEUROLOGIC: The patient was encephalopathic, but had elevated respiratory rate. LABORATORY DATA: Sodium was low, potassium was high. BUN was elevated at 109, creatinine was elevated at 2.7. Arterial blood gas revealed a pH of 7.25, PaCO2 of 94, pO2 of 46. White count was 12,000. CT abdomen and pelvis as indicated above. IMPRESSION: 1. Acute hypoxemic respiratory failure, multifactorial. 2. Acute metabolic toxic encephalopathy. 3. Small bowel obstruction. 4. Leukocytosis. 5. Suspect sepsis. 6. Acute on chronic kidney disease. 7. Hyponatremia. PLAN: 1. Stat ABG was obtained. See above. 2. We will obtain portable x-ray. 3. Empiric antibiotics. 4. Follow Nephrology input along with surgery input. 5. If the patient continues to deteriorate, she may require ICU transfer. The above was discussed with the nurse at the bedside. JUNIOR ABARCA MD DR: MILO/virginie JOB#: [id number] / [id number]
[2019-03-31] VITALS (22 sets, daily range): BP systolic 68–144; BP diastolic 33–58
[2019-03-31 04:23] LABS: BASO % 0 % (0-3); EOS % 0 % (0-3); HEMOGLOBIN 10.7 g/dL (12.0-15.5); LYMPH # 0.2 x10^3/uL (1.0-4.8); LYMPH % 2 % (24-48); MEAN CORPUSCULAR HEMOGLOBIN 27 pg (25-35); MEAN CORPUSCULAR HGB CONC 33 g/dL (31-37); MEAN CORPUSCULAR VOLUME 83 fL (79-100); MONO # 1.5 x10^3/uL (0.0-1.1); MONO % 12 % (0-9); NEUT # 11.1 x10^3/uL (1.8-7.7); NEUT % 86 % (31-73); PLATELET COUNT 408 x10^3/uL (140-400); RED BLOOD COUNT 3.99 x10^6/uL (3.50-5.40); WHITE BLOOD COUNT 12.9 x10^3/uL (4.0-11.0)
[2019-03-31 04:35] LABS: GFR 14.8; POTASSIUM 4.8 mmol/L (3.5-5.1)
[2019-03-31] MEDS: PIPERACILLIN/TAZOBACTAM 2.25 GM in IV NORMAL SALINE 50ML 50 ML IV SCH ×2 (05:58→13:37)
[2019-03-31] MEDS: ONDANSETRON PF 4 MG/2 ML VIAL. IV PRN (07:34)
[2019-03-31] MEDS: PANTOPRAZOLE IV PUSH 40 MG VIAL. IVP SCH (07:47)
[2019-03-31] MEDS: PARoxetine 20 MG TABLET PO SCH (08:05)
[2019-03-31] MEDS ORDERED: LIDOCAINE WITH 8.4% SOD BICARB 3 ML DISP.SYRIN. ONE (08:47)
--- NOTE | 2019-03-31 08:51 | PDOC ---
PULMONARY PROGRESS NOTES Subjective PT ON BIPAP NO DISTRESS AT THIS TIME Vitals Vital Signs Date Time Temp Pulse Resp B/P (MAP) Pulse Ox O2 Delivery O2 Flow Rate FiO2 03/31/19 08:00 97.6 88 92/42 (59) 96 BiPAP/CPAP 12.0 97.6 03/31/19 06:00 20 General: Confused Lungs: Crackles Cardiovascular: S1, S2 Abdomen: Other (DIFFUSE TENDERNESS) Extremities: Other (EDEMA) Skin: Warm Labs Laboratory Tests Test 03/30/19 04:23 03/30/19 13:13 03/31/19 04:00 White Blood Count 12.0 x10^3/uL (4.0-11.0) 12.9 x10^3/uL (4.0-11.0) Red Blood Count 4.04 x10^6/uL (3.50-5.40) 3.99 x10^6/uL (3.50-5.40) Hemoglobin 10.9 g/dL (12.0-15.5) 10.7 g/dL (12.0-15.5) Hematocrit 33.7 % (36.0-47.0) 33.0 % (36.0-47.0) Mean Corpuscular Volume 83 fL (79-100) 83 fL (79-100) Mean Corpuscular Hemoglobin 27 pg (25-35) 27 pg (25-35) Mean Corpuscular Hemoglobin Concent 32 g/dL (31-37) 33 g/dL (31-37) Red Cell Distribution Width 15.4 % (11.5-14.5) 16.0 % (11.5-14.5) Platelet Count 390 x10^3/uL (140-400) 408 x10^3/uL (140-400) Neutrophils (%) (Auto) 89 % (31-73) 86 % (31-73) Lymphocytes (%) (Auto) 4 % (24-48) 2 % (24-48) Monocytes (%) (Auto) 7 % (0-9) 12 % (0-9) Eosinophils (%) (Auto) 0 % (0-3) 0 % (0-3) Basophils (%) (Auto) 0 % (0-3) 0 % (0-3) Neutrophils # (Auto) 10.6 x10^3/uL (1.8-7.7) 11.1 x10^3/uL (1.8-7.7) Lymphocytes # (Auto) 0.4 x10^3/uL (1.0-4.8) 0.2 x10^3/uL (1.0-4.8) Monocytes # (Auto) 0.9 x10^3/uL (0.0-1.1) 1.5 x10^3/uL (0.0-1.1) Eosinophils # (Auto) 0.0 x10^3/uL (0.0-0.7) 0.0 x10^3/uL (0.0-0.7) Basophils # (Auto) 0.0 x10^3/uL (0.0-0.2) 0.0 x10^3/uL (0.0-0.2) Sodium Level 130 mmol/L (136-145) 133 mmol/L (136-145) Potassium Level 5.4 mmol/L (3.5-5.1) 4.8 mmol/L (3.5-5.1) Chloride Level 96 mmol/L (98-107) 98 mmol/L (98-107) Carbon Dioxide Level 22 mmol/L (21-32) 22 mmol/L (21-32) Anion Gap 12 (6-14) 13 (6-14) Blood Urea Nitrogen 109 mg/dL (7-20) 136 mg/dL (7-20) Creatinine 2.7 mg/dL (0.6-1.0) 3.0 mg/dL (0.6-1.0) Estimated GFR (Cockcroft-Gault) 16.7 14.8 BUN/Creatinine Ratio 40 (6-20) Glucose Level 114 mg/dL (70-99) 101 mg/dL (70-99) Lactic Acid Level 1.1 mmol/L (0.4-2.0) Calcium Level 9.0 mg/dL (8.5-10.1) 9.0 mg/dL (8.5-10.1) Phosphorus Level 4.3 mg/dL (2.6-4.7) Magnesium Level 3.1 mg/dL (1.8-2.4) Total Bilirubin 1.0 mg/dL (0.2-1.0) Aspartate Amino Transf (AST/SGOT) 30 U/L (15-37) Alanine Aminotransferase (ALT/SGPT) 22 U/L (14-59) Alkaline Phosphatase 89 U/L (46-116) Total Protein 6.8 g/dL (6.4-8.2) Albumin 2.0 g/dL (3.4-5.0) Albumin/Globulin Ratio 0.4 (1.0-1.7) O2 Saturation 94 % (92-99) Arterial Blood pH 7.25 (7.35-7.45) Arterial Blood pCO2 at Patient Temp 46 mmHg (35-46) Arterial Blood pO2 at Patient Temp 72 mmHg (65-108) Arterial Blood HCO3 20 mmol/L (21-28) Arterial Blood Base Excess -7 mmol/L (-3-3) FiO2 44% Laboratory Tests Test 03/30/19 13:13 03/31/19 04:00 O2 Saturation 94 % (92-99) Arterial Blood pH 7.25 (7.35-7.45) Arterial Blood pCO2 at Patient Temp 46 mmHg (35-46) Arterial Blood pO2 at Patient Temp 72 mmHg (65-108) Arterial Blood HCO3 20 mmol/L (21-28) Arterial Blood Base Excess -7 mmol/L (-3-3) FiO2 44% White Blood Count 12.9 x10^3/uL (4.0-11.0) Red Blood Count 3.99 x10^6/uL (3.50-5.40) Hemoglobin 10.7 g/dL (12.0-15.5) Hematocrit 33.0 % (36.0-47.0) Mean Corpuscular Volume 83 fL (79-100) Mean Corpuscular Hemoglobin 27 pg (25-35) Mean Corpuscular Hemoglobin Concent 33 g/dL (31-37) Red Cell Distribution Width 16.0 % (11.5-14.5) Platelet Count 408 x10^3/uL (140-400) Neutrophils (%) (Auto) 86 % (31-73) Lymphocytes (%) (Auto) 2 % (24-48) Monocytes (%) (Auto) 12 % (0-9) Eosinophils (%) (Auto) 0 % (0-3) Basophils (%) (Auto) 0 % (0-3) Neutrophils # (Auto) 11.1 x10^3/uL (1.8-7.7) Lymphocytes # (Auto) 0.2 x10^3/uL (1.0-4.8) Monocytes # (Auto) 1.5 x10^3/uL (0.0-1.1) Eosinophils # (Auto) 0.0 x10^3/uL (0.0-0.7) Basophils # (Auto) 0.0 x10^3/uL (0.0-0.2) Sodium Level 133 mmol/L (136-145) Potassium Level 4.8 mmol/L (3.5-5.1) Chloride Level 98 mmol/L (98-107) Carbon Dioxide Level 22 mmol/L (21-32) Anion Gap 13 (6-14) Blood Urea Nitrogen 136 mg/dL (7-20) Creatinine 3.0 mg/dL (0.6-1.0) Estimated GFR (Cockcroft-Gault) 14.8 Glucose Level 101 mg/dL (70-99) Calcium Level 9.0 mg/dL (8.5-10.1) Medications Active Scripts Medications Dose Route/Sig Max Daily Dose Days Date Category Prolia (Denosumab) 60 Mg/1 Ml Disp.syrin 60 Mg SQ Q 6 MONTHS 12/08/17 Reported Aspir 81 (Aspirin) 81 Mg Tablet.dr 81 Mg PO DAILY 02/06/16 Reported Glucosamine & Chondroitin Cap (Glucosa Ca 2KCL/Chondroitin Ca) 1 Each Capsule 1 Each PO BID 01/20/16 Reported Calcium 600 + Vit D 200 Tablet (Calcium Carbonate/Vitamin D3) 1 Each Tablet 1 Each PO BID 01/20/16 Reported Centrum Silver Tablet (Multivits-Min/Fa/Lycopene/Lut) 1 Each Tablet 1 Each PO DAILY 01/20/16 Reported Tramadol Hcl 50 Mg Tablet 50 Mg PO Q6H PRN 01/20/16 Reported Lipitor (Atorvastatin Calcium) 40 Mg Tablet 40 Mg PO HS 01/20/16 Reported Lisinopril 20 Mg Tablet 20 Mg PO HS 01/20/16 Reported Paxil (Paroxetine Hcl) 20 Mg Tablet 20 Mg PO DAILY 01/20/16 Reported Impression . IMPRESSION: 1. Acute hypoxemic respiratory failure, multifactorial. 2. Acute metabolic toxic encephalopathy. 3. Small bowel obstruction. 4. Leukocytosis. 5. Suspect sepsis. 6. Acute on chronic kidney disease. 7. Hyponatremia. Plan . PT TRANSFERRED TO ICU WILL NEED HD CXR REVIEWED OK ON BIPAP NO NEED FOR INTUBATION AT THIS TIME ANTIX SURGERY NO INTERVENTIONS AT THIS TIME CCT 30 MINUTES REVIEWING LABS/CXR AND FORMULATING A PLAN JUNIOR ABARCA MD Mar 31, 2019 08:51
[2019-03-31] MEDS ORDERED: LIDOCAINE WITH 8.4% SOD BICARB 3 ML DISP.SYRIN. INJ ONE (09:00)
--- NOTE | 2019-03-31 09:17 | NUR ---
SS following for discharge planning. Pt transferred to ICU due to change of condition. Discussed with Geena AMAYA. Pt is from home and is currently on the BIPAP. PT/OT currently on hold. SS will continue to follow for discharge planning.
--- NOTE | 2019-03-31 09:29 | PDOC ---
JOANA LEE [employer] 03/31/19 0929: SURGICAL PROGRESS NOTE Subjective on bipap family present Vital Signs Vital Signs Date Time Temp Pulse Resp B/P (MAP) Pulse Ox O2 Delivery O2 Flow Rate FiO2 03/31/19 09:08 98.0 96 92/42 (59) 96 BiPAP/CPAP 12.0 98.0 03/31/19 06:00 20 I&O Intake and Output 03/31/19 07:00 Intake Total 0 ml Output Total 849 ml Balance -849 ml Intake Oral 0 ml Output Urine Total 549 ml Gastric Drainage Total 300 ml PATIENT HAS A MOBLEY: Yes General: Cooperative HEENT: Other (bipap) Abdomen: Soft, Other (Nd) Labs Laboratory Tests Test 03/30/19 04:23 03/30/19 13:13 03/31/19 04:00 White Blood Count 12.0 x10^3/uL (4.0-11.0) 12.9 x10^3/uL (4.0-11.0) Red Blood Count 4.04 x10^6/uL (3.50-5.40) 3.99 x10^6/uL (3.50-5.40) Hemoglobin 10.9 g/dL (12.0-15.5) 10.7 g/dL (12.0-15.5) Hematocrit 33.7 % (36.0-47.0) 33.0 % (36.0-47.0) Mean Corpuscular Volume 83 fL (79-100) 83 fL (79-100) Mean Corpuscular Hemoglobin 27 pg (25-35) 27 pg (25-35) Mean Corpuscular Hemoglobin Concent 32 g/dL (31-37) 33 g/dL (31-37) Red Cell Distribution Width 15.4 % (11.5-14.5) 16.0 % (11.5-14.5) Platelet Count 390 x10^3/uL (140-400) 408 x10^3/uL (140-400) Neutrophils (%) (Auto) 89 % (31-73) 86 % (31-73) Lymphocytes (%) (Auto) 4 % (24-48) 2 % (24-48) Monocytes (%) (Auto) 7 % (0-9) 12 % (0-9) Eosinophils (%) (Auto) 0 % (0-3) 0 % (0-3) Basophils (%) (Auto) 0 % (0-3) 0 % (0-3) Neutrophils # (Auto) 10.6 x10^3/uL (1.8-7.7) 11.1 x10^3/uL (1.8-7.7) Lymphocytes # (Auto) 0.4 x10^3/uL (1.0-4.8) 0.2 x10^3/uL (1.0-4.8) Monocytes # (Auto) 0.9 x10^3/uL (0.0-1.1) 1.5 x10^3/uL (0.0-1.1) Eosinophils # (Auto) 0.0 x10^3/uL (0.0-0.7) 0.0 x10^3/uL (0.0-0.7) Basophils # (Auto) 0.0 x10^3/uL (0.0-0.2) 0.0 x10^3/uL (0.0-0.2) Sodium Level 130 mmol/L (136-145) 133 mmol/L (136-145) Potassium Level 5.4 mmol/L (3.5-5.1) 4.8 mmol/L (3.5-5.1) Chloride Level 96 mmol/L (98-107) 98 mmol/L (98-107) Carbon Dioxide Level 22 mmol/L (21-32) 22 mmol/L (21-32) Anion Gap 12 (6-14) 13 (6-14) Blood Urea Nitrogen 109 mg/dL (7-20) 136 mg/dL (7-20) Creatinine 2.7 mg/dL (0.6-1.0) 3.0 mg/dL (0.6-1.0) Estimated GFR (Cockcroft-Gault) 16.7 14.8 BUN/Creatinine Ratio 40 (6-20) Glucose Level 114 mg/dL (70-99) 101 mg/dL (70-99) Lactic Acid Level 1.1 mmol/L (0.4-2.0) Calcium Level 9.0 mg/dL (8.5-10.1) 9.0 mg/dL (8.5-10.1) Phosphorus Level 4.3 mg/dL (2.6-4.7) Magnesium Level 3.1 mg/dL (1.8-2.4) Total Bilirubin 1.0 mg/dL (0.2-1.0) Aspartate Amino Transf (AST/SGOT) 30 U/L (15-37) Alanine Aminotransferase (ALT/SGPT) 22 U/L (14-59) Alkaline Phosphatase 89 U/L (46-116) Total Protein 6.8 g/dL (6.4-8.2) Albumin 2.0 g/dL (3.4-5.0) Albumin/Globulin Ratio 0.4 (1.0-1.7) O2 Saturation 94 % (92-99) Arterial Blood pH 7.25 (7.35-7.45) Arterial Blood pCO2 at Patient Temp 46 mmHg (35-46) Arterial Blood pO2 at Patient Temp 72 mmHg (65-108) Arterial Blood HCO3 20 mmol/L (21-28) Arterial Blood Base Excess -7 mmol/L (-3-3) FiO2 44% Laboratory Tests Test 03/30/19 13:13 03/31/19 04:00 O2 Saturation 94 % (92-99) Arterial Blood pH 7.25 (7.35-7.45) Arterial Blood pCO2 at Patient Temp 46 mmHg (35-46) Arterial Blood pO2 at Patient Temp 72 mmHg (65-108) Arterial Blood HCO3 20 mmol/L (21-28) Arterial Blood Base Excess -7 mmol/L (-3-3) FiO2 44% White Blood Count 12.9 x10^3/uL (4.0-11.0) Red Blood Count 3.99 x10^6/uL (3.50-5.40) Hemoglobin 10.7 g/dL (12.0-15.5) Hematocrit 33.0 % (36.0-47.0) Mean Corpuscular Volume 83 fL (79-100) Mean Corpuscular Hemoglobin 27 pg (25-35) Mean Corpuscular Hemoglobin Concent 33 g/dL (31-37) Red Cell Distribution Width 16.0 % (11.5-14.5) Platelet Count 408 x10^3/uL (140-400) Neutrophils (%) (Auto) 86 % (31-73) Lymphocytes (%) (Auto) 2 % (24-48) Monocytes (%) (Auto) 12 % (0-9) Eosinophils (%) (Auto) 0 % (0-3) Basophils (%) (Auto) 0 % (0-3) Neutrophils # (Auto) 11.1 x10^3/uL (1.8-7.7) Lymphocytes # (Auto) 0.2 x10^3/uL (1.0-4.8) Monocytes # (Auto) 1.5 x10^3/uL (0.0-1.1) Eosinophils # (Auto) 0.0 x10^3/uL (0.0-0.7) Basophils # (Auto) 0.0 x10^3/uL (0.0-0.2) Sodium Level 133 mmol/L (136-145) Potassium Level 4.8 mmol/L (3.5-5.1) Chloride Level 98 mmol/L (98-107) Carbon Dioxide Level 22 mmol/L (21-32) Anion Gap 13 (6-14) Blood Urea Nitrogen 136 mg/dL (7-20) Creatinine 3.0 mg/dL (0.6-1.0) Estimated GFR (Cockcroft-Gault) 14.8 Glucose Level 101 mg/dL (70-99) Calcium Level 9.0 mg/dL (8.5-10.1) Problem List Problems Medical Problems: (1) Intractable abdominal pain Status: Acute (2) Intractable vomiting Status: Acute (3) Small bowel obstruction Status: Acute Assessment/Plan supportive measures no surgical plans KOLTON OLIVARES MD 03/31/19 1249: SURGICAL PROGRESS NOTE Assessment/Plan pt seen no family here at present agree with above Dr Sotomayor available over the weekend if needed JOANA LEE APRN Mar 31, 2019 09:29 KOLTON OLIVARES MD Mar 31, 2019 12:49
[2019-03-31] MEDS ORDERED: ONDANSETRON PF 4 MG/2 ML VIAL. IV PRN (09:30)
--- NOTE | 2019-03-31 09:48 | PDOC ---
SUBJECTIVE Subjective Pt sedated at time of visit. IR inserting temporary dialysis catheter. OBJECTIVE Objective Physical Exam: General appearance: sedated Head: Normocephalic, without obvious abnormality Pelvic: Urethral keller in place draining clear yellow urine. Vital Signs Vital Signs Date Time Temp Pulse Resp B/P (MAP) Pulse Ox O2 Delivery O2 Flow Rate FiO2 03/31/19 09:38 98.0 96 103/45 (64) 96 BiPAP/CPAP 12.0 98.0 03/31/19 09:08 98.0 96 92/42 (59) 96 BiPAP/CPAP 12.0 98.0 03/31/19 09:06 96 BiPAP/CPAP 03/31/19 08:00 97.6 88 92/42 (59) 96 BiPAP/CPAP 12.0 97.6 03/31/19 08:00 Bi-pap 12.0 03/31/19 07:56 92 120/33 (62) 94 12.0 03/31/19 07:18 96 BiPAP/CPAP 03/31/19 06:00 88 20 102/42 (62) 98 BiPAP/CPAP 03/31/19 05:00 88 20 116/40 (65) 98 BiPAP/CPAP 03/31/19 04:00 Bi-pap 03/31/19 04:00 96 BiPAP/CPAP 03/31/19 04:00 97.6 88 20 133/53 (79) 98 BiPAP/CPAP 97.6 03/31/19 03:00 88 20 136/48 (77) 98 BiPAP/CPAP 03/31/19 02:00 87 20 105/45 (65) 94 BiPAP/CPAP 03/31/19 01:00 86 20 103/41 (61) 96 BiPAP/CPAP 03/31/19 00:01 97.9 90 20 113/52 (72) 98 BiPAP/CPAP 97.9 03/31/19 00:00 Bi-pap 03/30/19 23:58 96 BiPAP/CPAP 03/30/19 23:00 94 20 116/52 (73) 97 BiPAP/CPAP 03/30/19 22:00 93 12 100/44 (62) 93 Venturi Mask 03/30/19 21:00 93 12 100/44 (62) 93 Venturi Mask 03/30/19 20:00 Venturi Mask 12.0 03/30/19 20:00 97.7 93 24 99/41 (60) 90 Venturi Mask 12.0 97.7 03/30/19 19:00 93 12 100/44 (62) 93 Venturi Mask 03/30/19 18:30 12 94 Venturi Mask 8.0 03/30/19 18:00 93 12 90/38 (55) 94 Venturi Mask 03/30/19 17:00 95 20 113/40 (64) 93 Venturi Mask 03/30/19 16:58 22 94 Venturi Mask 8.0 03/30/19 16:30 Venturi Mask 8.0 03/30/19 16:00 94 22 84/39 (54) 94 Venturi Mask 03/30/19 15:00 94 22 99/39 (59) 94 Venturi Mask 03/30/19 14:00 97.7 96 16 119/59 (79) 90 Venturi Mask 97.7 03/30/19 11:00 97.4 99 12 108/41 (63) 93 Nasal Cannula 3.5 97.4 I & O Intake and Output 03/31/19 07:00 Intake Total 0 ml Output Total 849 ml Balance -849 ml Intake Oral 0 ml Output Urine Total 549 ml Gastric Drainage Total 300 ml PHYSICAL EXAM Physical Exam Physical Exam: General appearance: sedated Head: Normocephalic, without obvious abnormality Pelvic: Urethral keller in place draining clear yellow urine. ASSESSMENT/PLAN Assessment/Plan Urinary Retention - Continue urethral keller catheter. Bladder U/S shows no retention; catheter functioning properly. Recent urine culture was negative. Will follow peripherally over the weekend. Call with any questions. COMMENT Lab Laboratory Tests Test 03/30/19 13:13 03/31/19 04:00 O2 Saturation 94 % (92-99) Arterial Blood pH 7.25 (7.35-7.45) Arterial Blood pCO2 at Patient Temp 46 mmHg (35-46) Arterial Blood pO2 at Patient Temp 72 mmHg (65-108) Arterial Blood HCO3 20 mmol/L (21-28) Arterial Blood Base Excess -7 mmol/L (-3-3) FiO2 44% White Blood Count 12.9 x10^3/uL (4.0-11.0) Red Blood Count 3.99 x10^6/uL (3.50-5.40) Hemoglobin 10.7 g/dL (12.0-15.5) Hematocrit 33.0 % (36.0-47.0) Mean Corpuscular Volume 83 fL (79-100) Mean Corpuscular Hemoglobin 27 pg (25-35) Mean Corpuscular Hemoglobin Concent 33 g/dL (31-37) Red Cell Distribution Width 16.0 % (11.5-14.5) Platelet Count 408 x10^3/uL (140-400) Neutrophils (%) (Auto) 86 % (31-73) Lymphocytes (%) (Auto) 2 % (24-48) Monocytes (%) (Auto) 12 % (0-9) Eosinophils (%) (Auto) 0 % (0-3) Basophils (%) (Auto) 0 % (0-3) Neutrophils # (Auto) 11.1 x10^3/uL (1.8-7.7) Lymphocytes # (Auto) 0.2 x10^3/uL (1.0-4.8) Monocytes # (Auto) 1.5 x10^3/uL (0.0-1.1) Eosinophils # (Auto) 0.0 x10^3/uL (0.0-0.7) Basophils # (Auto) 0.0 x10^3/uL (0.0-0.2) Sodium Level 133 mmol/L (136-145) Potassium Level 4.8 mmol/L (3.5-5.1) Chloride Level 98 mmol/L (98-107) Carbon Dioxide Level 22 mmol/L (21-32) Anion Gap 13 (6-14) Blood Urea Nitrogen 136 mg/dL (7-20) Creatinine 3.0 mg/dL (0.6-1.0) Estimated GFR (Cockcroft-Gault) 14.8 Glucose Level 101 mg/dL (70-99) Calcium Level 9.0 mg/dL (8.5-10.1) Nutrition Consultation Dietary Evaluation: Recommendations by RD: PPN/TPN Comments: continue PPN until able to advance to a diet as tolerated Expected Outcomes/Goals: diet advancement/ tolerance- goal ongoing to meet > 75% est nutr needs via po intake- goal ongoing Malnutrition Findings: Body Fat Depletion (Non Severe: Mod to Severe Weight Status: Underweight PAUL HERNANDEZ [employer] Mar 31, 2019 09:48
--- NOTE | 2019-03-31 10:05 | RAD ---
Examination: Single frontal view of the chest HISTORY: History of temporary dialysis catheter placement COMPARISON: 03/30/2019 FINDINGS: Low lung volumes accentuate heart size and pulmonary vascularity identified. Feeding tube is seen below the diaphragm likely within the stomach. Right-sided dialysis catheter tip projects at the SVC/RA junction. Mild diffuse prominent bilateral interstitial lung markings. Right lung base airspace opacity likely atelectasis or infiltrate again identified. IMPRESSION: 1. Right-sided dialysis catheter in place. 2. Mild congestive changes. Moderate right lung base airspace opacity likely pneumonia or atelectasis. Follow-up to resolution. Electronically signed by: Kevon Wade MD (03/31/2019 10:02 AM) [id number]
[2019-03-31] MEDS ORDERED: TPN PER PHARMACY MC PRN (10:15)
--- NOTE | 2019-03-31 10:16 | PDOC ---
PROGRESS NOTES Chief Complaint Chief Complaint PArtial SBO with transition point right side HYpotension, relative ARTUR, CKD - contrast induced nephropathy? Oliguric RF- initiation HD (03/31) Ileus Hypoxic respi failure with abN CT chest Hx breast cancer and lung cancer Hyperlipidemia Depression NOS Osteoporosis Hx smoker and heavy drinker Appendectomy Tonsillectomy Hysterectomy Hernia repair leukocytosis, SIRS History of Present Illness History of Present Illness admitted 03/26 for partial SBO Transferred to ICU hypotensive and hypoxic on BIPAP 03/30 NOw also needing initiation of HD 03/30 - has central HD cath now, for first session HD today Minmal UO COnfused now, prev ambulatory and even driving Seeing in icu ON bipap, moaning in pain with tenderness right abd - I have dw imaging results with family at bedside 4mgs morphine snowed her PLAn: TPN/PICC now - dw renal HD today WOF further hypotension, pressor if needed FULL CODE BIPAP per pulmo AVoid nephrotoxins dec morphine to 2 mgs 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 LAbs CC 30, dw multiple fam members, 30 mins cc in care Vitals Vitals Vital Signs Date Time Temp Pulse Resp B/P (MAP) Pulse Ox O2 Delivery O2 Flow Rate FiO2 03/31/19 09:38 98.0 96 103/45 (64) 96 BiPAP/CPAP 12.0 98.0 03/31/19 06:00 20 Physical Exam General: Cooperative Heart: Regular rate, Normal S1 Lungs: Wheezing (on Left), Crackles Abdomen: Soft, Other (Nd) Extremities: No clubbing, No cyanosis Skin: No rashes, No significant lesion Labs LABS Laboratory Tests Test 03/30/19 13:13 03/31/19 04:00 O2 Saturation 94 % (92-99) Arterial Blood pH 7.25 (7.35-7.45) Arterial Blood pCO2 at Patient Temp 46 mmHg (35-46) Arterial Blood pO2 at Patient Temp 72 mmHg (65-108) Arterial Blood HCO3 20 mmol/L (21-28) Arterial Blood Base Excess -7 mmol/L (-3-3) FiO2 44% White Blood Count 12.9 x10^3/uL (4.0-11.0) Red Blood Count 3.99 x10^6/uL (3.50-5.40) Hemoglobin 10.7 g/dL (12.0-15.5) Hematocrit 33.0 % (36.0-47.0) Mean Corpuscular Volume 83 fL (79-100) Mean Corpuscular Hemoglobin 27 pg (25-35) Mean Corpuscular Hemoglobin Concent 33 g/dL (31-37) Red Cell Distribution Width 16.0 % (11.5-14.5) Platelet Count 408 x10^3/uL (140-400) Neutrophils (%) (Auto) 86 % (31-73) Lymphocytes (%) (Auto) 2 % (24-48) Monocytes (%) (Auto) 12 % (0-9) Eosinophils (%) (Auto) 0 % (0-3) Basophils (%) (Auto) 0 % (0-3) Neutrophils # (Auto) 11.1 x10^3/uL (1.8-7.7) Lymphocytes # (Auto) 0.2 x10^3/uL (1.0-4.8) Monocytes # (Auto) 1.5 x10^3/uL (0.0-1.1) Eosinophils # (Auto) 0.0 x10^3/uL (0.0-0.7) Basophils # (Auto) 0.0 x10^3/uL (0.0-0.2) Sodium Level 133 mmol/L (136-145) Potassium Level 4.8 mmol/L (3.5-5.1) Chloride Level 98 mmol/L (98-107) Carbon Dioxide Level 22 mmol/L (21-32) Anion Gap 13 (6-14) Blood Urea Nitrogen 136 mg/dL (7-20) Creatinine 3.0 mg/dL (0.6-1.0) Estimated GFR (Cockcroft-Gault) 14.8 Glucose Level 101 mg/dL (70-99) Calcium Level 9.0 mg/dL (8.5-10.1) Review of Systems Review of Systems moaning, bipap in pain, limited Assessment and Plan Assessmemt and Plan Problems Medical Problems: (1) Intractable abdominal pain Status: Acute (2) Intractable vomiting Status: Acute (3) Small bowel obstruction Status: Acute Comment Review of Relevant I have reviewed the following items abilio (where applicable) has been applied. Labs Laboratory Tests Test 03/30/19 04:23 03/30/19 13:13 03/31/19 04:00 White Blood Count 12.0 x10^3/uL (4.0-11.0) 12.9 x10^3/uL (4.0-11.0) Red Blood Count 4.04 x10^6/uL (3.50-5.40) 3.99 x10^6/uL (3.50-5.40) Hemoglobin 10.9 g/dL (12.0-15.5) 10.7 g/dL (12.0-15.5) Hematocrit 33.7 % (36.0-47.0) 33.0 % (36.0-47.0) Mean Corpuscular Volume 83 fL (79-100) 83 fL (79-100) Mean Corpuscular Hemoglobin 27 pg (25-35) 27 pg (25-35) Mean Corpuscular Hemoglobin Concent 32 g/dL (31-37) 33 g/dL (31-37) Red Cell Distribution Width 15.4 % (11.5-14.5) 16.0 % (11.5-14.5) Platelet Count 390 x10^3/uL (140-400) 408 x10^3/uL (140-400) Neutrophils (%) (Auto) 89 % (31-73) 86 % (31-73) Lymphocytes (%) (Auto) 4 % (24-48) 2 % (24-48) Monocytes (%) (Auto) 7 % (0-9) 12 % (0-9) Eosinophils (%) (Auto) 0 % (0-3) 0 % (0-3) Basophils (%) (Auto) 0 % (0-3) 0 % (0-3) Neutrophils # (Auto) 10.6 x10^3/uL (1.8-7.7) 11.1 x10^3/uL (1.8-7.7) Lymphocytes # (Auto) 0.4 x10^3/uL (1.0-4.8) 0.2 x10^3/uL (1.0-4.8) Monocytes # (Auto) 0.9 x10^3/uL (0.0-1.1) 1.5 x10^3/uL (0.0-1.1) Eosinophils # (Auto) 0.0 x10^3/uL (0.0-0.7) 0.0 x10^3/uL (0.0-0.7) Basophils # (Auto) 0.0 x10^3/uL (0.0-0.2) 0.0 x10^3/uL (0.0-0.2) Sodium Level 130 mmol/L (136-145) 133 mmol/L (136-145) Potassium Level 5.4 mmol/L (3.5-5.1) 4.8 mmol/L (3.5-5.1) Chloride Level 96 mmol/L (98-107) 98 mmol/L (98-107) Carbon Dioxide Level 22 mmol/L (21-32) 22 mmol/L (21-32) Anion Gap 12 (6-14) 13 (6-14) Blood Urea Nitrogen 109 mg/dL (7-20) 136 mg/dL (7-20) Creatinine 2.7 mg/dL (0.6-1.0) 3.0 mg/dL (0.6-1.0) Estimated GFR (Cockcroft-Gault) 16.7 14.8 BUN/Creatinine Ratio 40 (6-20) Glucose Level 114 mg/dL (70-99) 101 mg/dL (70-99) Lactic Acid Level 1.1 mmol/L (0.4-2.0) Calcium Level 9.0 mg/dL (8.5-10.1) 9.0 mg/dL (8.5-10.1) Phosphorus Level 4.3 mg/dL (2.6-4.7) Magnesium Level 3.1 mg/dL (1.8-2.4) Total Bilirubin 1.0 mg/dL (0.2-1.0) Aspartate Amino Transf (AST/SGOT) 30 U/L (15-37) Alanine Aminotransferase (ALT/SGPT) 22 U/L (14-59) Alkaline Phosphatase 89 U/L (46-116) Total Protein 6.8 g/dL (6.4-8.2) Albumin 2.0 g/dL (3.4-5.0) Albumin/Globulin Ratio 0.4 (1.0-1.7) O2 Saturation 94 % (92-99) Arterial Blood pH 7.25 (7.35-7.45) Arterial Blood pCO2 at Patient Temp 46 mmHg (35-46) Arterial Blood pO2 at Patient Temp 72 mmHg (65-108) Arterial Blood HCO3 20 mmol/L (21-28) Arterial Blood Base Excess -7 mmol/L (-3-3) FiO2 44% Laboratory Tests Test 03/30/19 13:13 03/31/19 04:00 O2 Saturation 94 % (92-99) Arterial Blood pH 7.25 (7.35-7.45) Arterial Blood pCO2 at Patient Temp 46 mmHg (35-46) Arterial Blood pO2 at Patient Temp 72 mmHg (65-108) Arterial Blood HCO3 20 mmol/L (21-28) Arterial Blood Base Excess -7 mmol/L (-3-3) FiO2 44% White Blood Count 12.9 x10^3/uL (4.0-11.0) Red Blood Count 3.99 x10^6/uL (3.50-5.40) Hemoglobin 10.7 g/dL (12.0-15.5) Hematocrit 33.0 % (36.0-47.0) Mean Corpuscular Volume 83 fL (79-100) Mean Corpuscular Hemoglobin 27 pg (25-35) Mean Corpuscular Hemoglobin Concent 33 g/dL (31-37) Red Cell Distribution Width 16.0 % (11.5-14.5) Platelet Count 408 x10^3/uL (140-400) Neutrophils (%) (Auto) 86 % (31-73) Lymphocytes (%) (Auto) 2 % (24-48) Monocytes (%) (Auto) 12 % (0-9) Eosinophils (%) (Auto) 0 % (0-3) Basophils (%) (Auto) 0 % (0-3) Neutrophils # (Auto) 11.1 x10^3/uL (1.8-7.7) Lymphocytes # (Auto) 0.2 x10^3/uL (1.0-4.8) Monocytes # (Auto) 1.5 x10^3/uL (0.0-1.1) Eosinophils # (Auto) 0.0 x10^3/uL (0.0-0.7) Basophils # (Auto) 0.0 x10^3/uL (0.0-0.2) Sodium Level 133 mmol/L (136-145) Potassium Level 4.8 mmol/L (3.5-5.1) Chloride Level 98 mmol/L (98-107) Carbon Dioxide Level 22 mmol/L (21-32) Anion Gap 13 (6-14) Blood Urea Nitrogen 136 mg/dL (7-20) Creatinine 3.0 mg/dL (0.6-1.0) Estimated GFR (Cockcroft-Gault) 14.8 Glucose Level 101 mg/dL (70-99) Calcium Level 9.0 mg/dL (8.5-10.1) Microbiology 03/26/19 Urine Culture - Final, Complete 03/26/19 Urine Culture Result 1 (GUILLERMO) - Final, Complete Medications Current Medications Fentanyl Citrate (Fentanyl 2ml Vial) 50 mcg PRN Q15MIN PRN IV PAIN GREATER THAN 3/10 Last administered on 03/26/19at 18:39; Start 03/26/19 at 16:45; Stop 03/27/19 at 16:44; Status DC Sodium Chloride 1,000 ml @ 1,000 mls/hr 1X ONCE IV Last administered on 03/26/19at 17:30; Start 03/26/19 at 16:45; Stop 03/26/19 at 17:44; Status DC Famotidine (Pepcid Vial) 20 mg 1X ONCE IVP Last administered on 03/26/19at 17:29; Start 03/26/19 at 16:45; Stop 03/26/19 at 16:49; Status DC Ondansetron HCl (Zofran) 4 mg 1X ONCE IV Last administered on 03/26/19at 17:29; Start 03/26/19 at 16:45; Stop 03/26/19 at 16:49; Status DC Prochlorperazine Edisylate (Compazine) 10 mg 1X ONCE IV Last administered on 03/26/19at 18:12; Start 03/26/19 at 18:45; Stop 03/26/19 at 18:46; Status DC Metoclopramide HCl (Reglan Vial) 10 mg 1X ONCE IV Last administered on 03/26/19at 18:18; Start 03/26/19 at 18:45; Stop 03/26/19 at 18:46; Status DC Lorazepam (Ativan Inj) 2 mg 1X ONCE IM ; Start 03/26/19 at 19:30; Stop 03/26/19 at 19:31; Status DC Iohexol (Omnipaque 350 Mg/ml) 75 ml 1X ONCE IV Last administered on 03/26/19at 19:27; Start 03/26/19 at 19:15; Stop 03/26/19 at 19:16; Status DC Info (CONTRAST GIVEN -- Rx MONITORING) 1 each PRN DAILY PRN MC SEE COMMENTS; Start 03/26/19 at 19:15; Stop 03/28/19 at 19:14; Status DC Ondansetron HCl (Zofran) 4 mg PRN Q8HRS PRN IV NAUSEA/VOMITING Last administered on 03/27/19 14:03; Start 03/26/19 at 20:00; Stop 03/27/19 at 19:59; Status DC Morphine Sulfate (Morphine Sulfate) 4 mg PRN Q2HR PRN IV PAIN Last administered on 03/27/19 19:29; Start 03/26/19 at 20:00; Stop 03/27/19 at 19:59; Status DC Sodium Chloride 1,000 ml @ 75 mls/hr 1X ONCE IV Last administered on 03/26/19at 22:39; Start 03/26/19 at 20:00; Stop 03/27/19 at 09:19; Status DC Lorazepam (Ativan Inj) 1 mg PRN Q4HRS PRN IV ANXIETY / AGITATION; Start at 20:00 Pantoprazole Sodium (PROTONIX VIAL for IV PUSH) 40 mg DAILYAC IVP Last administered on 03/31/19at 07:47; Start 03/27/19 at 10:30 Paroxetine HCl (Paxil) 20 mg DAILY PO ; Start 03/27/19 at 11:00 Tramadol HCl (Ultram) 50 mg PRN Q6HRS PRN PO PAIN; Start 03/27/19 at 10:30 Amino Acids/ Glycerin/ Electrolytes 1,000 ml @ 80 mls/hr [id number] IV Last administered on 03/30/19at 03:30; Start 03/27/19 at 11:00; Stop 03/30/19 at 13:30; Status DC Saliva Substitute (Biotene Moisturizing Mouth) 2 spray PRN Q15MIN PRN PO DRY MOUTH Last administered on 03/28/19at 21:44; Start 03/27/19 at 10:30 Nicotine (Nicoderm Cq 14mg) 1 patch PRN DAILY PRN TD SMOKING CESSATION; Start 03/27/19 at 10:45 Morphine Sulfate (Morphine Sulfate) 4 mg PRN Q2HR PRN IV MODERATE PAIN Last administered on 03/30/19at 00:11; Start 03/27/19 at 23:00; Stop 03/31/19 at 10:06; Status DC Sodium Chloride 1,000 ml @ 125 mls/hr 1X ONCE IV Last administered on 03/29/19at 09:45; Start 03/29/19 at 09:30; Stop 03/29/19 at 17:29; Status DC Iohexol (Omnipaque 300 Mg/ml) 400 ml 1X ONCE IJ Last administered on 03/29/19at 15:21; Start 03/29/19 at 09:45; Stop 03/29/19 at 09:51; Status DC Info (CONTRAST GIVEN -- Rx MONITORING) 1 each PRN DAILY PRN MC SEE COMMENTS; Start 03/29/19 at 10:00; Stop 03/31/19 at 09:59; Status DC Ondansetron HCl (Zofran) 4 mg PRN Q8HRS PRN IV NAUSEA/VOMITING Last administered on 03/31/19at 07:34; Start 03/29/19 at 15:15; Stop 03/31/19 at 09:30; Status DC Fentanyl Citrate (Fentanyl 2ml Vial) 50 mcg PRN Q2HR PRN IV SEVERE PAIN 7-10 Last administered on 03/30/19at 16:58; Start 03/30/19 at 01:30 Sodium Bicarbonate 50 meq/Sodium Chloride 1,050 ml @ 75 mls/hr Q14H IV Last administered on 03/30/19at 09:17; Start 03/30/19 at 09:00; Stop 03/30/19 at 13:30; Status DC Piperacillin Sod/ Tazobactam Sod (Zosyn Per Pharmacy) 1 each PRN DAILY PRN MC SEE COMMENTS; Start 03/30/19 at 11:30 Piperacillin Sod/ Tazobactam Sod 2.25 gm/Sodium Chloride 50 ml @ 100 mls/hr Q8HRS IV Last administered on 03/31/19at 05:58; Start 03/30/19 at 12:00 Furosemide (Lasix) 40 mg 1X ONCE IVP Last administered on 03/30/19at 13:37; Start 03/30/19 at 13:30; Stop 03/30/19 at 13:34; Status DC Albumin Human 50 ml @ 50 mls/hr 1X ONCE IV Last administered on 03/30/19at 16:25; Start 03/30/19 at 16:00; Stop 03/30/19 at 16:59; Status DC Furosemide (Lasix) 40 mg 1X ONCE IVP Last administered on 03/30/19at 17:10; Start 03/30/19 at 16:00; Stop 03/30/19 at 16:07; Status DC Lidocaine/Sodium Bicarbonate (Buffered Lidocaine 1%) 3 ml STK-MED ONCE .ROUTE ; Start 03/31/19 at 08:47; Stop 03/31/19 at 08:47; Status DC Lidocaine/Sodium Bicarbonate (Buffered Lidocaine 1%) 3 ml 1X ONCE INJ Last administered on 03/31/19at 09:31; Start 03/31/19 at 09:00; Stop 03/31/19 at 09:01; Status DC Ondansetron HCl (Zofran) 4 mg PRN Q6HRS PRN IV NAUSEA/VOMITING; Start 03/31/19 at 09:30 Morphine Sulfate (Morphine Sulfate) 2 mg PRN Q2HR PRN IV MODERATE PAIN; Start 03/31/19 at 10:15 Active Scripts Active Reported Prolia (Denosumab) 60 Mg/1 Ml Disp.syrin 60 Mg SQ Q 6 MONTHS Aspir 81 (Aspirin) 81 Mg Tablet.dr 81 Mg PO DAILY Glucosamine & Chondroitin Cap (Glucosa Ca 2KCL/Chondroitin Ca) 1 Each Capsule 1 Each PO BID Calcium 600 + Vit D 200 Tablet (Calcium Carbonate/Vitamin D3) 1 Each Tablet 1 Each PO BID Centrum Silver Tablet (Multivits-Min/Fa/Lycopene/Lut) 1 Each Tablet 1 Each PO DAILY Tramadol Hcl 50 Mg Tablet 50 Mg PO Q6H PRN Lipitor (Atorvastatin Calcium) 40 Mg Tablet 40 Mg PO HS Lisinopril 20 Mg Tablet 20 Mg PO HS Paxil (Paroxetine Hcl) 20 Mg Tablet 20 Mg PO DAILY Vitals/I & O Vital Sign - Last 24 Hours 03/30/19 03/30/19 03/30/19 03/30/19 11:00 14:00 15:00 16:00 Temp 97.4 97.7 97.4 97.7 Pulse 99 96 94 94 Resp 12 16 22 22 B/P (MAP) 108/41 (63) 119/59 (79) 99/39 (59) 84/39 (54) Pulse Ox 93 90 94 94 O2 Delivery Nasal Cannula Venturi Mask Venturi Mask Venturi Mask O2 Flow Rate 3.5 03/30/19 03/30/19 03/30/19 03/30/19 16:30 16:58 17:00 18:00 Pulse 95 93 Resp 22 20 12 B/P (MAP) 113/40 (64) 90/38 (55) Pulse Ox 94 93 94 O2 Delivery Venturi Mask Venturi Mask Venturi Mask Venturi Mask O2 Flow Rate 8.0 8.0 03/30/19 03/30/19 03/30/19 03/30/19 18:30 19:00 20:00 20:00 Temp 97.7 97.7 Pulse 93 93 Resp 12 12 24 B/P (MAP) 100/44 (62) 99/41 (60) Pulse Ox 94 93 90 O2 Delivery Venturi Mask Venturi Mask Venturi Mask Venturi Mask O2 Flow Rate 8.0 12.0 12.0 03/30/19 03/30/19 03/30/19 03/30/19 21:00 22:00 23:00 23:58 Pulse 93 93 94 Resp 12 12 20 B/P (MAP) 100/44 (62) 100/44 (62) 116/52 (73) Pulse Ox 93 93 97 96 O2 Delivery Venturi Mask Venturi Mask BiPAP/CPAP BiPAP/CPAP 03/31/19 03/31/19 03/31/19 03/31/19 00:00 00:01 01:00 02:00 Temp 97.9 97.9 Pulse 90 86 87 Resp 20 20 20 B/P (MAP) 113/52 (72) 103/41 (61) 105/45 (65) Pulse Ox 98 96 94 O2 Delivery Bi-pap BiPAP/CPAP BiPAP/CPAP BiPAP/CPAP 03/31/19 03/31/19 03/31/19 03/31/19 03:00 04:00 04:00 04:00 Temp 97.6 97.6 Pulse 88 88 Resp 20 20 B/P (MAP) 136/48 (77) 133/53 (79) Pulse Ox 98 98 96 O2 Delivery BiPAP/CPAP BiPAP/CPAP BiPAP/CPAP Bi-pap 03/31/19 03/31/19 03/31/19 03/31/19 05:00 06:00 07:18 07:56 Pulse 88 88 92 Resp 20 20 B/P (MAP) 116/40 (65) 102/42 (62) 120/33 (62) Pulse Ox 98 98 96 94 O2 Delivery BiPAP/CPAP BiPAP/CPAP BiPAP/CPAP O2 Flow Rate 12.0 03/31/19 03/31/19 03/31/19 03/31/19 08:00 08:00 09:06 09:08 Temp 97.6 98.0 97.6 98.0 Pulse 88 96 B/P (MAP) 92/42 (59) 92/42 (59) Pulse Ox 96 96 96 O2 Delivery Bi-pap BiPAP/CPAP BiPAP/CPAP BiPAP/CPAP O2 Flow Rate 12.0 12.0 12.0 03/31/19 09:38 Temp 98.0 98.0 Pulse 96 B/P (MAP) 103/45 (64) Pulse Ox 96 O2 Delivery BiPAP/CPAP O2 Flow Rate 12.0 Intake and Output 03/30/19 03/30/19 03/31/19 14:59 22:59 06:59 Intake Total 0 ml Output Total 400 ml 149 ml 300 ml Balance -400 ml -149 ml -300 ml Nutrition Consultation Dietary Evaluation: Recommendations by RD: PPN/TPN Comments: continue PPN until able to advance to a diet as tolerated Expected Outcomes/Goals: diet advancement/ tolerance- goal ongoing to meet > 75% est nutr needs via po intake- goal ongoing Malnutrition Findings: Body Fat Depletion (Non Severe: Mod to Severe Weight Status: Underweight YI POOLE MD Mar 31, 2019 10:16
[2019-03-31] MEDS: MORPHINE SULFATE 2 MG/ML VIAL. IV PRN ×3 (10:26→15:30)
[2019-03-31] MEDS ORDERED: IV NORMAL SALINE 1000ML BAG 1,000 ML IV PRN ×2 (11:23)
[2019-03-31] MEDS ORDERED: DIALYSIS PATIENT. MC PRN ×2 (11:30)
--- NOTE | 2019-03-31 11:55 | PDOC ---
Renal-Progress Notes Subjective Notes Notes CONFUSED History of Present Illness Hx of present illness WORSE Vitals Vitals Vital Signs Date Time Temp Pulse Resp B/P (MAP) Pulse Ox O2 Delivery O2 Flow Rate FiO2 03/31/19 11:45 98.1 91 111/49 (69) 98 BiPAP/CPAP 16.0 98.1 03/31/19 06:00 20 Weight Weight [ ] I.O. Intake and Output Intake and Output 03/31/19 07:00 Intake Total 0 ml Output Total 849 ml Balance -849 ml Intake Oral 0 ml Output Urine Total 549 ml Gastric Drainage Total 300 ml Labs Labs Laboratory Tests Test 03/30/19 13:13 03/31/19 04:00 O2 Saturation 94 % (92-99) Arterial Blood pH 7.25 (7.35-7.45) Arterial Blood pCO2 at Patient Temp 46 mmHg (35-46) Arterial Blood pO2 at Patient Temp 72 mmHg (65-108) Arterial Blood HCO3 20 mmol/L (21-28) Arterial Blood Base Excess -7 mmol/L (-3-3) FiO2 44% White Blood Count 12.9 x10^3/uL (4.0-11.0) Red Blood Count 3.99 x10^6/uL (3.50-5.40) Hemoglobin 10.7 g/dL (12.0-15.5) Hematocrit 33.0 % (36.0-47.0) Mean Corpuscular Volume 83 fL (79-100) Mean Corpuscular Hemoglobin 27 pg (25-35) Mean Corpuscular Hemoglobin Concent 33 g/dL (31-37) Red Cell Distribution Width 16.0 % (11.5-14.5) Platelet Count 408 x10^3/uL (140-400) Neutrophils (%) (Auto) 86 % (31-73) Lymphocytes (%) (Auto) 2 % (24-48) Monocytes (%) (Auto) 12 % (0-9) Eosinophils (%) (Auto) 0 % (0-3) Basophils (%) (Auto) 0 % (0-3) Neutrophils # (Auto) 11.1 x10^3/uL (1.8-7.7) Lymphocytes # (Auto) 0.2 x10^3/uL (1.0-4.8) Monocytes # (Auto) 1.5 x10^3/uL (0.0-1.1) Eosinophils # (Auto) 0.0 x10^3/uL (0.0-0.7) Basophils # (Auto) 0.0 x10^3/uL (0.0-0.2) Sodium Level 133 mmol/L (136-145) Potassium Level 4.8 mmol/L (3.5-5.1) Chloride Level 98 mmol/L (98-107) Carbon Dioxide Level 22 mmol/L (21-32) Anion Gap 13 (6-14) Blood Urea Nitrogen 136 mg/dL (7-20) Creatinine 3.0 mg/dL (0.6-1.0) Estimated GFR (Cockcroft-Gault) 14.8 Glucose Level 101 mg/dL (70-99) Calcium Level 9.0 mg/dL (8.5-10.1) Micro Micro Microbiology 03/26/19 Urine Culture - Final, Complete 03/26/19 Urine Culture Result 1 (GUILLERMO) - Final, Complete Review of Systems Constitutional: yes: other (CONFUSED) Physical Exam General Appearance: no apparent distress Skin: warm Respiratory: decreased breath sounds Heart: S1S2 Abdomen: soft, other (HYPOACTIVE) Genitourinary: bladder flat Extremities: pulses present Neurology: confused Assessment Assessment IMP ENCEPHALOPATHY-PROB IATROGENIC SBO-HAS NGT ARTUR-WORSE AND-OLIGURIC DEHYDRATION URINARY RETENTION ACUTE RESP FAILURE PLAN BIPAP TPN AFTER CENTRAL LINE TEMP HD CATHETER HD TODAY UF ABOUT 2.0 LITERS BOWEL REST OFF IVF'S MAINTAIN MOBLEY WORSENING ARTUR DUE TO CONTRAST EXPOSURE WILL FOLLOW DEBI GARCÍA MD Mar 31, 2019 11:55
[2019-03-31] MEDS: TPN PER PHARMACY MC PRN ×2 (12:20→12:39)
--- NOTE | 2019-03-31 12:41 | NUR ---
Pharmacy TPN Dosing Note S: MARCELL MCCLELLAND is a 88 year old F Currently receiving Central Continuous TPN started 03/31/19 B:Pertinent PMH: sbo Height: 5 feet, 6 inches Weight: 55.592773 kg Current diet: ppn LABS: Sodium: 133 Potassium: 4.8 Chloride: 98 Calcium: 9.0 Corrected Calcium: 10.60 Magnesium: 3.1 CO2: 22 SCr: 3.0 Glucose: 101 Albumin: 2.0 AST: 30 ALT: 22 TPN FORMULA: TPN TYPE: Central Continuous AMINO ACIDS: 65 gm DEXTROSE: 250 gm LIPIDS: 20 gm SODIUM CHLORIDE: 90 mEq SODIUM ACETATE: mEq SODIUM PHOSPHATE: mmol POTASSIUM CHLORIDE: 50 mEq POTASSIUM ACETATE: mEq POTASSIUM PHOSPHATE: 5 mmol MAGNESIUM: mEq CALCIUM: 10 mEq INSULIN: units MULTIPLE VITAMIN: 10 ml TRACE ELEMENTS: 1 ml(s) TPN PLAN: new tpn at 63ml/hr, REMOVED MAGSO4, DECREASE KPHOS TO 5MM/BAG. R: Begin TPN today at 220 and dc ppn when tpn started. Will monitor electrolytes, glucose, and tolerance to TPN. CARINA WREN [facility], 03/31/19 0031
--- NOTE | 2019-03-31 12:44 | PDOC ---
Objective: Objective: D/w nurse - not much from NG, ?dialysis this afternoon, on TPN. No surgery plans. Vital Signs: Vital Signs Date Time Temp Pulse Resp B/P (MAP) Pulse Ox O2 Delivery O2 Flow Rate FiO2 03/31/19 11:45 98.1 91 111/49 (69) 98 BiPAP/CPAP 16.0 98.1 03/31/19 06:00 20 Labs: Laboratory Tests Test 03/30/19 13:13 03/31/19 04:00 O2 Saturation 94 % Arterial Blood pH 7.25 Arterial Blood pCO2 at Patient Temp 46 mmHg Arterial Blood pO2 at Patient Temp 72 mmHg Arterial Blood HCO3 20 mmol/L Arterial Blood Base Excess -7 mmol/L FiO2 44% White Blood Count 12.9 x10^3/uL Red Blood Count 3.99 x10^6/uL Hemoglobin 10.7 g/dL Hematocrit 33.0 % Mean Corpuscular Volume 83 fL Mean Corpuscular Hemoglobin 27 pg Mean Corpuscular Hemoglobin Concent 33 g/dL Red Cell Distribution Width 16.0 % Platelet Count 408 x10^3/uL Neutrophils (%) (Auto) 86 % Lymphocytes (%) (Auto) 2 % Monocytes (%) (Auto) 12 % Eosinophils (%) (Auto) 0 % Basophils (%) (Auto) 0 % Neutrophils # (Auto) 11.1 x10^3/uL Lymphocytes # (Auto) 0.2 x10^3/uL Monocytes # (Auto) 1.5 x10^3/uL Eosinophils # (Auto) 0.0 x10^3/uL Basophils # (Auto) 0.0 x10^3/uL Sodium Level 133 mmol/L Potassium Level 4.8 mmol/L Chloride Level 98 mmol/L Carbon Dioxide Level 22 mmol/L Anion Gap 13 Blood Urea Nitrogen 136 mg/dL Creatinine 3.0 mg/dL Estimated GFR (Cockcroft-Gault) 14.8 Glucose Level 101 mg/dL Calcium Level 9.0 mg/dL Hepatitis B Surface Antigen Nonreactive Hepatitis B Surface Antibody Nonreactive Imaging: Renal US Impression: The right kidney measures 9.9 x 4.9 x 4.0 cm. The left kidney measures 10.8 x 5.12 5.4 cm. Prevoid urinary bladder volume is 98 cc. Postvoid urinary bladder volume was not obtained. CXR 8/16 IMPRESSION: 1. Right-sided dialysis catheter in place. 2. Mild congestive changes. Moderate right lung base airspace opacity likely pneumonia or atelectasis. Follow-up to resolution. PE: GEN: NAD LUNGS: BiPAP HEART: RRR ABD: soft NEURO/PSYCH: moaning A/P: SBO w/ ARTUR and resp failure -- Supportive care. BETTY JORGE Mar 31, 2019 12:44
--- NOTE | 2019-03-31 12:53 | RAD ---
CHEST AP ONLY 11:58 AM Clinical indications: Central line placement COMPARISON: March 31, 2019 09: 26 A.M. Findings: NG tube tip is seen within the proximal body of the stomach. Right IJ hemodialysis line is unchanged in position from the previous study and the tip is located within the lower SVC at the junction with right atrium. Left IJ central line has been placed and the tip is seen within the lower SVC above the level of the right atrium. No pneumothorax or left-sided pleural effusion is seen. Unchanged right lung base consolidative infiltrate is seen. Small right-sided pleural effusion is unchanged. Previously seen right midlung zone infiltrate has resolved. There has been improvement in the left lower lung zone infiltrate. The heart size, pulmonary vasculature, mediastinum and both [place] are stable. Impression: Placement of central line without pneumothorax. Stable right lung base consolidative infiltrate and small right-sided pleural effusion. Improvement of right midlung zone infiltrate. Improvement of left lower lung zone infiltrate. Electronically signed by: Daniel Lowe MD (03/31/2019 12:50 PM) [place] [id number]
--- NOTE | 2019-03-31 13:29 | RAD ---
Procedure: Ultrasound-guided placement of right internal jugular temporary dialysis catheter03/31/2019 1:24 PM Clinical Indication: Renal Failure Discussion: The risks and benefits of the procedure were discussed the patient and/or their international account representative. Informed consent was obtained. A timeout procedure was performed. All elements of maximal sterile barrier technique including the use of a cap, mask, sterile gown, sterile gloves, large sterile sheet, appropriate hand hygiene, and 2% chlorhexidine for cutaneous antisepsis (or acceptable alternative antiseptic per current guidelines) were followed for this procedure. The patient was prepped and draped in the usual sterile fashion. Ultrasound interrogation of the right neck revealed patency and compressibility of the right internal jugular vein. A 21-gauge micropuncture was then used to gain access to this vein under ultrasound guidance. A hard copy ultrasound image was recorded. A guidewire was advanced centrally. 5 [place] sheath was placed. Over a wire following dilatation, a dual-lumen temporary dialysis catheter was advanced centrally. Catheter was found to flush and aspirate normally. Follow-up chest radiograph demonstrates tip at the cavoatrial junction. Catheter secured in place and a sterile dressing was applied. No immediate complications were identified. Impression: Successful ultrasound-guided placement of right internal jugular temporary dialysis catheter
--- NOTE | 2019-03-31 14:04 | RAD ---
Procedure: Ultrasound-guided placement of left internal jugular central venous catheter03/31/2019 2:01 PM Clinical Indication: TPN, Antibiotics Discussion: The risks and benefits of the procedure were discussed the patient and/or their dermatology sales representative. Informed consent was obtained. A timeout procedure was performed. All elements of maximal sterile barrier technique including the use of a cap, mask, sterile gown, sterile gloves, large sterile sheet, appropriate hand hygiene, and 2% chlorhexidine for cutaneous antisepsis (or acceptable alternative antiseptic per current guidelines) were followed for this procedure. The patient was prepped and draped in the usual sterile fashion. Ultrasound interrogation of the right neck revealed patency and compressibility of the left internal jugular vein. A 21-gauge micropuncture was then used to gain access to this vein under ultrasound guidance. A hard copy ultrasound image was recorded. A guidewire was advanced centrally. 5 [place] sheath was placed. Over a wire following dilatation, a triple-lumen central venous catheter was advanced centrally. Catheter was found to flush and aspirate normally. Follow-up chest radiograph demonstrates tip at the cavoatrial junction. Catheter secured in place and a sterile dressing was applied. No immediate complications were identified. Impression: Successful ultrasound-guided placement of left internal jugular triple-lumen central venous catheter
--- NOTE | 2019-03-31 20:00 | NUR ---
Pt with decreased blood pressure. Unable to obtain a great waveform on the 02 sat probe. Son (Barrett) called and discussed POC. Spoke with all sons of patient and verified that they wanted patient to be a DNR and to be kept comfortable. Dr. Ignacio called with order for levophed and DNR status.
[2019-03-31] MEDS ORDERED: NOREPINEPHRIN 8MG/250ML PREMIX 250 ML IV PRN (20:30)
--- NOTE | 2019-03-31 20:50 | NUR ---
While awaiting levophed, pt went josephine then Asystole, Time of 2047. Son notified.
--- NOTE | 2019-03-31 21:59 | PDOC3 ---
Discharge Summary Visit Information Date of Admission: Mar 26, 2019 Date of Discharge: Mar 31, 2019 Admitting Diagnosis Comment: PArtial SBO with transition point right side HYpotension, relative ARTUR, CKD - contrast induced nephropathy? Oliguric RF- initiation HD (03/31) Ileus Hypoxic respi failure with abN CT chest Hx breast cancer and lung cancer Hyperlipidemia Depression NOS Osteoporosis Hx smoker and heavy drinker Appendectomy Tonsillectomy Hysterectomy Hernia repair leukocytosis, SIRS Final Diagnosis Problems Medical Problems: (1) Intractable abdominal pain Status: Acute (2) Intractable vomiting Status: Acute (3) Small bowel obstruction Status: Acute Brief Hospital Course Allergies Allergies Coded Allergies Type Severity Reaction Last Updated Verified No Known Drug Allergies 03/05/14 No Vital Signs Vital Signs Date Time Temp Pulse Resp B/P (MAP) Pulse Ox O2 Delivery O2 Flow Rate FiO2 03/31/19 19:56 BiPAP/CPAP 03/31/19 19:30 16.0 03/31/19 19:00 97.4 96 98/45 (62) 92 97.4 03/31/19 06:00 20 Lab Results Laboratory Tests Test 03/30/19 04:23 03/30/19 13:13 03/31/19 04:00 White Blood Count 12.0 x10^3/uL (4.0-11.0) 12.9 x10^3/uL (4.0-11.0) Red Blood Count 4.04 x10^6/uL (3.50-5.40) 3.99 x10^6/uL (3.50-5.40) Hemoglobin 10.9 g/dL (12.0-15.5) 10.7 g/dL (12.0-15.5) Hematocrit 33.7 % (36.0-47.0) 33.0 % (36.0-47.0) Mean Corpuscular Volume 83 fL (79-100) 83 fL (79-100) Mean Corpuscular Hemoglobin 27 pg (25-35) 27 pg (25-35) Mean Corpuscular Hemoglobin Concent 32 g/dL (31-37) 33 g/dL (31-37) Red Cell Distribution Width 15.4 % (11.5-14.5) 16.0 % (11.5-14.5) Platelet Count 390 x10^3/uL (140-400) 408 x10^3/uL (140-400) Neutrophils (%) (Auto) 89 % (31-73) 86 % (31-73) Lymphocytes (%) (Auto) 4 % (24-48) 2 % (24-48) Monocytes (%) (Auto) 7 % (0-9) 12 % (0-9) Eosinophils (%) (Auto) 0 % (0-3) 0 % (0-3) Basophils (%) (Auto) 0 % (0-3) 0 % (0-3) Neutrophils # (Auto) 10.6 x10^3/uL (1.8-7.7) 11.1 x10^3/uL (1.8-7.7) Lymphocytes # (Auto) 0.4 x10^3/uL (1.0-4.8) 0.2 x10^3/uL (1.0-4.8) Monocytes # (Auto) 0.9 x10^3/uL (0.0-1.1) 1.5 x10^3/uL (0.0-1.1) Eosinophils # (Auto) 0.0 x10^3/uL (0.0-0.7) 0.0 x10^3/uL (0.0-0.7) Basophils # (Auto) 0.0 x10^3/uL (0.0-0.2) 0.0 x10^3/uL (0.0-0.2) Sodium Level 130 mmol/L (136-145) 133 mmol/L (136-145) Potassium Level 5.4 mmol/L (3.5-5.1) 4.8 mmol/L (3.5-5.1) Chloride Level 96 mmol/L (98-107) 98 mmol/L (98-107) Carbon Dioxide Level 22 mmol/L (21-32) 22 mmol/L (21-32) Anion Gap 12 (6-14) 13 (6-14) Blood Urea Nitrogen 109 mg/dL (7-20) 136 mg/dL (7-20) Creatinine 2.7 mg/dL (0.6-1.0) 3.0 mg/dL (0.6-1.0) Estimated GFR (Cockcroft-Gault) 16.7 14.8 BUN/Creatinine Ratio 40 (6-20) Glucose Level 114 mg/dL (70-99) 101 mg/dL (70-99) Lactic Acid Level 1.1 mmol/L (0.4-2.0) Calcium Level 9.0 mg/dL (8.5-10.1) 9.0 mg/dL (8.5-10.1) Phosphorus Level 4.3 mg/dL (2.6-4.7) Magnesium Level 3.1 mg/dL (1.8-2.4) Total Bilirubin 1.0 mg/dL (0.2-1.0) Aspartate Amino Transf (AST/SGOT) 30 U/L (15-37) Alanine Aminotransferase (ALT/SGPT) 22 U/L (14-59) Alkaline Phosphatase 89 U/L (46-116) Total Protein 6.8 g/dL (6.4-8.2) Albumin 2.0 g/dL (3.4-5.0) Albumin/Globulin Ratio 0.4 (1.0-1.7) O2 Saturation 94 % (92-99) Arterial Blood pH 7.25 (7.35-7.45) Arterial Blood pCO2 at Patient Temp 46 mmHg (35-46) Arterial Blood pO2 at Patient Temp 72 mmHg (65-108) Arterial Blood HCO3 20 mmol/L (21-28) Arterial Blood Base Excess -7 mmol/L (-3-3) FiO2 44% Hepatitis B Surface Antigen Nonreactive (Nonreactive) Hepatitis B Surface Antibody Nonreactive Hepatitis B Core Total Antibody Nonreactive (Nonreactive) Laboratory Tests Test 03/31/19 04:00 White Blood Count 12.9 x10^3/uL (4.0-11.0) Red Blood Count 3.99 x10^6/uL (3.50-5.40) Hemoglobin 10.7 g/dL (12.0-15.5) Hematocrit 33.0 % (36.0-47.0) Mean Corpuscular Volume 83 fL (79-100) Mean Corpuscular Hemoglobin 27 pg (25-35) Mean Corpuscular Hemoglobin Concent 33 g/dL (31-37) Red Cell Distribution Width 16.0 % (11.5-14.5) Platelet Count 408 x10^3/uL (140-400) Neutrophils (%) (Auto) 86 % (31-73) Lymphocytes (%) (Auto) 2 % (24-48) Monocytes (%) (Auto) 12 % (0-9) Eosinophils (%) (Auto) 0 % (0-3) Basophils (%) (Auto) 0 % (0-3) Neutrophils # (Auto) 11.1 x10^3/uL (1.8-7.7) Lymphocytes # (Auto) 0.2 x10^3/uL (1.0-4.8) Monocytes # (Auto) 1.5 x10^3/uL (0.0-1.1) Eosinophils # (Auto) 0.0 x10^3/uL (0.0-0.7) Basophils # (Auto) 0.0 x10^3/uL (0.0-0.2) Sodium Level 133 mmol/L (136-145) Potassium Level 4.8 mmol/L (3.5-5.1) Chloride Level 98 mmol/L (98-107) Carbon Dioxide Level 22 mmol/L (21-32) Anion Gap 13 (6-14) Blood Urea Nitrogen 136 mg/dL (7-20) Creatinine 3.0 mg/dL (0.6-1.0) Estimated GFR (Cockcroft-Gault) 14.8 Glucose Level 101 mg/dL (70-99) Calcium Level 9.0 mg/dL (8.5-10.1) Hepatitis B Surface Antigen Nonreactive (Nonreactive) Hepatitis B Surface Antibody Nonreactive Hepatitis B Core Total Antibody Nonreactive (Nonreactive) Brief Hospital Course Ms. 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 2 notes today Discharge Information Condition at Discharge: / Scheduled Aspirin (Aspir 81) 81 Mg Tablet., 81 MG PO DAILY for heart health, (Reported) Entered as Reported by: CARLOS KEITH on 02/06/16 1240 Last Action: HELD on 03/27/19 1023 by RITU JIMENEZ Atorvastatin Calcium (Lipitor) 40 Mg Tablet, 40 MG PO HS for HLD, (Reported) Entered as Reported by: ADRIANNA BALBUENA on 01/20/16714 Last Action: HELD on 03/27/19 1023 by RITU JIMENEZ Calcium Carbonate/Vitamin D3 (Calcium 600 + Vit D 200 Tablet) 1 Each Tablet, 1 EACH PO BID for supplement, (Reported) Entered as Reported by: ADRIANNA BALBUENA on 01/20/16714 Last Action: HELD on 03/27/19 1023 by RITU JIMENEZ Denosumab (Prolia) 60 Mg/1 Ml Disp.syrin, 60 MG SQ q 6 months for osteoporosis, (Reported) Entered as Reported by: CARLOS KEITH on 12/08/17 1454 Last Action: HELD on 03/27/19 1023 by RITU JIMENEZ Glucosa Ca 2KCL/Chondroitin Ca (Glucosamine & Chondroitin Cap) 1 Each Capsule, 1 EACH PO BID for supplement, (Reported) Entered as Reported by: ADRIANNA BALBUENA on 01/20/16714 Last Action: HELD on 03/27/19 1023 by RITU JIMENEZ Lisinopril (Lisinopril) 20 Mg Tablet, 20 MG PO HS for HTN, (Reported) Entered as Reported by: ADRIANNA BALBUENA on 01/20/16714 Last Action: HELD on 03/27/19 1023 by RITU JIMENEZ Multivits-Min/Fa/Lycopene/Lut (Centrum Silver Tablet) 1 Each Tablet, 1 EACH PO DAILY, (Reported) Entered as Reported by: ADRIANNA BALBUENA on 01/20/16714 Last Action: HELD on 03/27/19 1023 by RITU JIMENEZ Paroxetine Hcl (Paxil) 20 Mg Tablet, 20 MG PO DAILY for depression, (Reported) Entered as Reported by: ADRIANNA BALBUENA on 01/20/16714 Last Action: Continued on 03/27/19 1023 by RITU JIMENEZ Scheduled PRN Tramadol Hcl (Tramadol Hcl) 50 Mg Tablet, 50 MG PO Q6H PRN for PAIN, (Reported) Entered as Reported by: ADRIANNA BALBUENA on 01/20/16714 Last Action: Continued on 03/27/19 1023 by RITU JIMENEZ Discontinued Medications Folic Acid/Vitamin B Comp W-C (Super B-Complex Folic-Vit C Tb) 400 Mcg Tablet, 400 MCG PO DAILY, (Reported) Entered as Reported by: ADRIANNA BALBUENA on 01/20/16 0715 Last Action: Discontinued on 03/26/19 2233 by YI HALL MD Mar 31, 2019 21:59
[2019-03-31] MEDS ORDERED: TOTAL PARENTERAL NUTRITION IV SCH ×9 (22:00)
[2019-03-31] MEDS ORDERED: DEXTROSE 70% IV SCH ×9 (22:00)
[2019-03-31] MEDS ORDERED: [UNRECOGNIZED DRUG - OTHER] IV SCH ×9 (22:00)
[2019-03-31] MEDS ORDERED: AMINO ACID IV SCH ×9 (22:00)
== END 2019-03-31 20:48 | disposition expired | DRG 871 ==
LOC: ER 16:21 → 5 NORTH 19:59 → 1 WEST ICU 03-30 14:21
PROVIDERS: ADMIT Family Medicine; ATTEND Family Medicine
PROC: 5A09357 Assistance with Respiratory Ventilation, Less than 24 Consecutive Hours, Continuous Positive Airway Pressure (ICD-10-PCS; principal; 2019-03-30)
PROC: 02HV33Z Insertion of Infusion Device into Superior Vena Cava, Percutaneous Approach (ICD-10-PCS; 2019-03-31)
PROC: B548ZZA Ultrasonography of Superior Vena Cava, Guidance (ICD-10-PCS; 2019-03-31)
PROC: 02HV33Z Insertion of Infusion Device into Superior Vena Cava, Percutaneous Approach (ICD-10-PCS; 2019-03-31)
PROC: B548ZZA Ultrasonography of Superior Vena Cava, Guidance (ICD-10-PCS; 2019-03-31)
PROC: 5A1D70Z Performance of Urinary Filtration, Intermittent, Less than 6 Hours Per Day (ICD-10-PCS; 2019-03-31)
DX: A41.9 Sepsis, unspecified organism (principal); J96.01 Acute respiratory failure with hypoxia; G92 Toxic encephalopathy; J18.9 Pneumonia, unspecified organism; K56.609 Unspecified intestinal obstruction, unspecified as to partial versus complete obstruction; C34.90 Malignant neoplasm of unspecified part of unspecified bronchus or lung; E87.1 Hypo-osmolality and hyponatremia; J98.11 Atelectasis; K56.7 Ileus, unspecified; N17.9 Acute kidney failure, unspecified; E78.00 Pure hypercholesterolemia, unspecified; E78.5 Hyperlipidemia, unspecified; E86.0 Dehydration; F17.210 Nicotine dependence, cigarettes, uncomplicated; F32.9 Major depressive disorder, single episode, unspecified; I12.9 Hypertensive chronic kidney disease with stage 1 through stage 4 chronic kidney disease, or unspecified chronic kidney disease; K44.9 Diaphragmatic hernia without obstruction or gangrene; K57.90 Diverticulosis of intestine, part unspecified, without perforation or abscess without bleeding; K82.8 Other specified diseases of gallbladder; M81.0 Age-related osteoporosis without current pathological fracture; N18.9 Chronic kidney disease, unspecified; Z79.82 Long term (current) use of aspirin; Z79.899 Other long term (current) drug therapy; Z85.118 Personal history of other malignant neoplasm of bronchus and lung; Z90.710 Acquired absence of both cervix and uterus; Z85.3 Personal history of malignant neoplasm of breast; M19.90 Unspecified osteoarthritis, unspecified site; I95.9 Hypotension, unspecified; Z66 Do not resuscitate; N14.1 Nephropathy induced by other drugs, medicaments and biological substances; T50.8X5A Adverse effect of diagnostic agents, initial encounter
CPT/HCPCS: 36415; 36556; 36600; 71045; 71250; 71275; 74018; 74022; 74174; 74176; 74250; 76770; 76937; 80048; 80053; 81001; 82553; 82805; 83605; 83690; 83735; 83880; 84100; 84443; 84484; 85007; 85025; 85610; 86704; 86706; 87086; 87340; 93005; 94660; 96374; 96375; C1892; C9113; J0780; J1940; J2270; J2405; J2543; J2765; J3010; J3490; J7030; P9046; Q9967; 99285-25; G0378